=== PATIENT | female | born 1945 | race Caucasian/White ===

== ENCOUNTER 2017-03-21 10:50 | Emergency (ER) | payer MEDICARE, OTHER ==
--- NOTE | 2017-03-21 11:09 | ED Physician Documentation ---
General Adult - HISTORIAN Historian: patient - HPI Stated Complaint: skin tear Chief Complaint: General Adult Onset: days ago (1) Timing: still present Severity: moderate Further Comments: yes (Pt is a 71 yo female who fell 2 days ago and sustained skin tears to her R arm and forearm. Pt fell out of bed. Pt states that arm is a little sore, but neuromuscular is intact. Pt is on Eliquis, and sites have been oozing blood a little. Tetanus status is unknown. Pt is concerned about skin tears becoming infected.) - ROS CONST: no problems EYES/ENT: none CVS/RESP: none MS/SKIN/LYMPH: other (skin tears R arm and forearm) - PAST HX Past History: other (Afib, CHF, COPD, HTN, CABG, AAA repair, Depression) Allergies/Adverse Reactions: Allergies Allergy/AdvReac Type Severity Reaction Status Date / Time No Known Allergies Allergy Verified 03/21/17 11:11 Home Medications: Ambulatory Orders Medication Instructions Recorded Cephalexin [Keflex] 500 mg PO Q12H #10 capsule 03/21/17 - SOCIAL HX Smoking History: cigarettes - FAMILY HX Family History: No - VITAL SIGNS Vital Signs: Vital Signs Temp Pulse Resp BP Pulse Ox 131/46 02/23/14 00:30 - REVIEWED ASSESSMENTS Nursing Assessment Reviewed: Yes Vitals Reviewed: Yes Progress - Progress Progress: Tdap 0.5 ml IM Rx Keflex 500 mg. Take one every 12 hrs for 5 days. General Adult Physical Exam - PHYSICAL EXAM GENERAL APPEARANCE: no distress NECK: normal inspection, supple RESPIRATORY: no resp distress, chest non-tender, breath sounds normal CVS: reg rate & rhythm ABDOMEN: soft, no organomegaly BACK: normal inspection, no CVA tenderness SKIN: other (skin tears, R arm and forearm, partially healed) EXTREMITIES: non-tender, normal range of motion, no evidence of injury, no edema NEURO: oriented X3, motor nml, sensation nml Discharge Clincal Impression: Skin tear, fall Prescriptions: Cephalexin [Keflex] 500 mg PO Q12H #10 capsule Referrals: Pedro Torrez MD [Primary Care Provider] - Condition: Good Disposition: 01 HOME, SELF-CARE Decision to Admit: NO Decision Time: 11:36
[2017-03-21] MEDS: DIPH,PERTUSS(ACELL),TET VAC/PF 0.5 ML DISP.SYRIN IM ONE (11:20)
[2017-03-21 11:50] VITALS: BP 136/60
== END 2017-03-21 11:40 | disposition home or self-care (01) ==
LOC: ED 10:50
DX: S51.811A Laceration without foreign body of right forearm, initial encounter (principal); W19.XXXA Unspecified fall, initial encounter; Y93.9 Activity, unspecified; Y99.9 Unspecified external cause status
CPT/HCPCS: 90471; 90715; 99283; 99284

== ENCOUNTER 2017-08-25 06:34 | Emergency (ER) | payer MEDICARE, OTHER ==
--- NOTE | 2017-08-25 06:58 | ED Physician Documentation ---
General Adult - HPI Stated Complaint: fall from standing position Chief Complaint: General Adult (skin tears) Additional Information: Patient states that she slipped and fell against her cabinets and sustained injury to her right forearm area. Patient just dressed the wounds last night. Today decided to have it evaluated. Patient is on Eliquis and it has been oozing some. Onset: hours (yesterday evening) Timing: still present Severity: mild - SOCIAL HX Alcohol Use: none Drug Use: none - VITAL SIGNS Vital Signs: Vital Signs Temp Pulse Resp BP Pulse Ox 97.6 F 63 18 154/39 95 08/25/17 06:34 08/25/17 06:34 08/25/17 06:34 08/25/17 06:34 08/25/17 06:34 <Pedro Torrez - Last Filed: 08/25/17 06:57> - HPI Further Comments: yes (she states she fell against the cabinet . She denies head injury or LOC. She states she just cleaned the area and wrapped it.) Last known Well Date: 08/24/17 Last Known Well Time: 16:00 Last known Well Code/Unknown Code: Unknown - ROS CONST: no problems CVS/RESP: none GI/: none MS/SKIN/LYMPH: none NEURO/PSYCH: denies: headache, fainting - PAST HX Past History: COPD, A-Fib, hypertension Surgeries/Procedures: hysterectomy, other (appy, ) - SOCIAL HX Smoking History: cigarettes Alcohol Use: none Drug Use: none - FAMILY HX Family History: No - VITAL SIGNS Vital Signs: Vital Signs Temp Pulse Resp BP Pulse Ox 97.6 F 63 18 154/39 95 08/25/17 06:34 08/25/17 06:34 08/25/17 06:34 08/25/17 06:34 08/25/17 06:34 - REVIEWED ASSESSMENTS Nursing Assessment Reviewed: Yes Vitals Reviewed: Yes <Chel Bunch - Last Filed: 08/25/17 08:43> - PAST HX Allergies/Adverse Reactions: Allergies Allergy/AdvReac Type Severity Reaction Status Date / Time No Known Allergies Allergy Verified 08/25/17 06:52 Home Medications: Ambulatory Orders Medication Instructions Recorded Cephalexin [Keflex] 500 mg PO Q12H #10 capsule 03/21/17 Procedures Wound Location: upper extremity Wound's Depth, Shape: irregular Wound Explored: clean Betadine Prep?: No Anesthesia: 1% Lidocaine Wound Repaired With: sutures Suture Size/Type: 3:0 Number of Sutures: 14 (8 on upper lac and 14 lower ) Layer Closure?: Yes Deep Layer Suture Size/Type: 3:0 Number Deep Layer Sutures: 4 (4 lower 2 middle ) <Chel Bunch - Last Filed: 08/25/17 08:43> ED Results Lab/Radiology - Orders Orders: ED Orders Category Date Time Status Cephalexin [Keflex] Med 08/25/17 07:16 Discontinued 500 mg .ROUTE .STK-MED ONE Lidocaine 1% 5ml(IM or SUTURE) [Xylocaine] Med 08/25/17 07:02 Discontinued 100 mg .ROUTE .STK-MED ONE <Chel Bunch - Last Filed: 08/25/17 08:43> General Adult Physical Exam - PHYSICAL EXAM GENERAL APPEARANCE: no distress EENT: eye inspection normal, ENT inspection normal NECK: normal inspection RESPIRATORY: no resp distress, chest non-tender, wheezes CVS: reg rate & rhythm, heart sounds normal, equal pulses, no murmur ABDOMEN: soft, normal bowel sounds SKIN: warm/dry, other (skin tear right upper arm and laceartion on lower upper arm ) NEURO: oriented X3, CN's nml as tested, motor nml, sensation nml <Chel Bunch - Last Filed: 08/25/17 08:43> Discharge <Pedro Torrez - Last Filed: 08/25/17 06:57> Comments: 1. Keflex 500 mg BID x 10 days 2. Triple antibiotic ointment and a non stick pad with dressing 3. Watch area for infection - redness, streaking, drainage, increased pain or swelling 4. Return to Dr Torrez in 7-10 days for suture removal 5. Return to ER for any concerning symptoms Decision to Admit: NO Date of Decison to Admit: 08/25/17 Decision Time: 08:36 <Chel Bunch - Last Filed: 08/25/17 08:43> Clincal Impression: Laceration Referrals: Pedro Torrez MD [Primary Care Provider] - 2 Days Condition: Stable Disposition: 01 HOME, SELF-CARE
[2017-08-25] MEDS ORDERED: Lidocaine 1% 5ml(IM or SUTURE)(PAIN CLINIC) ONE (07:02)
[2017-08-25] MEDS ORDERED: CEPHALEXIN 250 MG CAPSULE ONE (07:16)
[2017-08-25] MEDS ORDERED: Lidocaine 1% 5ml(IM or SUTURE)(PAIN CLINIC) IJ ONE ×2 (07:54→07:58)
[2017-08-25] MEDS ORDERED: DIPH,PERTUSS(ACELL),TET VAC/PF 0.5 ML DISP.SYRIN IM ONE (07:55)
[2017-08-25] MEDS ORDERED: CEPHALEXIN 250 MG/5 ML BTL PO ONE (07:55)
[2017-08-25 09:04] VITALS: BP 148/62
== END 2017-08-25 08:50 | disposition home or self-care (01) ==
LOC: ED 06:34
DX: S41.111A Laceration without foreign body of right upper arm, initial encounter (principal); Z23 Encounter for immunization; W19.XXXA Unspecified fall, initial encounter; Y93.89 Activity, other specified; Y92.008 Other place in unspecified non-institutional (private) residence as the place of occurrence of the external cause
CPT/HCPCS: 12031; 90471; 90715; 99283

== ENCOUNTER 2018-05-28 14:54 | Inpatient (IN) | payer MEDICARE, OTHER ==
[2018-05-28 15:14] LABS: BASOPHILS % 0.6 (0.0-1.5); EOSINOPHILS % 1.7 % (0.0-6.8); MEAN CORPUSCULAR HEMOGLOBIN 29.9 pg (28.0-34.0); NEUTROPHILS # 4.5 # k/uL (1.4-7.7)
[2018-05-28] MEDS ORDERED: ALBUTEROL SULFATE 2.5 MG/3 ML AMPUL.NEB NEB ONE (15:24)
[2018-05-28] MEDS ORDERED: LACTATED RINGERS 0 ML IV ONE (15:27)
[2018-05-28 15:46] LABS: eGFR (Non-African) > 60
--- NOTE | 2018-05-28 15:54 | Diagnostic Imaging Report ---
SAM WOODARD (STILL PUMP OPERATOR) - ER [facility] [address] [facility].[address] [address] Report Submission Date: May 28, 2018 3:43:43 PM EDUCATION OFFICER Patient Study Name: JESSICA LINN Date: May 28, 2018 3:23:13 PM EDUCATION OFFICER Modality Type: DX Gender: F Description: CHEST : 49 Institution: [facility] Physician: SAM WOODARD (STILL PUMP OPERATOR) - ER Examination: Portable chest History: Evaluate lungs. SOA, congestion (Hx) Comparison exam: None provided. Findings: Single view of the chest demonstrates a normal cardiac and mediastinal silhouette. Elevated left hemidiaphragm. Sternotomy wires. Diffuse parenchymal haziness bilaterally. No blunting of the costophrenic margins. Degenerative changes. Lumbar fixation hardware. Neurostimulator. Impression: Diffuse interstitial prominence suggesting congestive edema. Electronically signed on May 28, 2018 3:43:43 PM EDUCATION OFFICER by: Darius TUCKER
[2018-05-28] MEDS ORDERED: FUROSEMIDE 40 MG/4 ML VIAL IVP ONE (16:27)
[2018-05-28 16:28] LABS: ABG BASE EXCESS 7.2 (-2 - +2); ABG PH 7.44 (7.35-7.45)
--- NOTE | 2018-05-28 16:29 | ED Physician Documentation ---
General Adult - HISTORIAN Historian: patient, other (family) - HPI Stated Complaint: SOA Chief Complaint: General Adult Onset: days ago Timing: worse Further Comments: yes (73 year old female patient presents via EMS with complaint of dyspnea, fatigue, and swelling in ankles. Patient was admitted last week at [facility] with LLL CAP. Patient was discharged on 05/18 with augmentin, doxycycline and prednisone. Patient has a history of Afib and is currently on apixaban. Patient reports poor po intake for the past few days. Patient reports PCP in [place].) - ROS CONST: recent illness ([facility] admission last week. ), weakness, chills. denies: weight loss EYES/ENT: none CVS/RESP: shortness of breath, cough. denies: chest pain GI/: none MS/SKIN/LYMPH: leg swelling (ankles) - PAST HX Past History: COPD, A-Fib, hypertension Other History: other (osteoporosis, GERD, constipation) Immunizations: influenza (UTD), pneumovax (2 years ago) Allergies/Adverse Reactions: Allergies Allergy/AdvReac Type Severity Reaction Status Date / Time adhesive tape AdvReac Itchy Skin Verified 05/28/18 15:11 Home Medications: Ambulatory Orders Medication Instructions Recorded Albuterol Sulfate [Proventil Hfa] 2.5 mg D 05/28/18 Alendronate Sodium [Fosamax] 70 mg WEEK 05/28/18 Apixaban [Eliquis] 2.5 mg D 05/28/18 Atorvastatin Calcium [Lipitor] 20 mg D 05/28/18 Budesonide/Formoterol Fumarate 1 each D 05/28/18 [Symbicort 160-4.5 Mcg Inhaler] Cholecalciferol [Vitamin D-3] 1 each D 05/28/18 Doxycycline Hyclate [Vibramycin] 100 mg BID 05/28/18 Fluticasone Propionate [Flonase] 1 each D 05/28/18 Furosemide [Lasix] 40 mg D 05/28/18 Ipratropium/Albuterol Sulfate 3 ml D 05/28/18 [Duoneb] Metoprolol Tartrate 50 mg BID 05/28/18 Omeprazole 40 mg BID 05/28/18 Potassium Chloride [Klor-Con M10] 10 meq D 05/28/18 Prednisone 40 mg D 05/28/18 Sennosides/Docusate Sodium 1 each D 05/28/18 [Docusate Sodium-Senna Tablet] - SOCIAL HX Smoking History: cigarettes (1 ppd ) - FAMILY HX Family History: No - VITAL SIGNS Vital Signs: Vital Signs Temp Pulse Resp BP Pulse Ox 99.1 F 90 20 146/69 79 L 05/28/18 14:54 05/28/18 14:54 05/28/18 14:54 05/28/18 14:54 05/28/18 14:54 - REVIEWED ASSESSMENTS Nursing Assessment Reviewed: Yes Vitals Reviewed: Yes Progress - Progress Progress: lab reviewed - will progress with ABG, CT abd/pelvis. Lasix 40mg IV given. Discussed plan of care with patient and family. Offered admission for CHF exacerbation with evaluation by PT/OT. Patient will likely need swing bed for strengthening. Assisted up to BSC - patient unable to get up off of stretcher on her own; assist x 2 to bathroom. Fall risk. 1715 CT results reviewed. Patient reports no vomiting; last BM____; patient denies any abdominal pain. Adorno's negative. No palpable mass in left abdominal wall. No clinical symptoms of obstruction. Will monitor closely. Denise Monk FIELD MARKETER made aware. Ultrasound is not available at this time. No previous ECHO report available. - EKG/XRAY/CT EKG: rhythm (Afib) ED Results Lab/Radiology - Lab Results Lab Results: Lab Results 05/28/18 05/28/18 05/28/18 Unknown Unknown Unknown WBC 5.80 K/ul K/ul (4.00-12.00) RBC 3.56 M/ul L M/ul (3.90-5.20) Hgb 10.6 g/dL L g/dL (12.0-16.0) Hct 32.3 % L % (34.5-46.5) MCV 91.0 fl fl (80.0-100.0) MCH 29.9 pg pg (28.0-34.0) MCHC 33.0 g/dL g/dL (30.0-36.0) RDW 14.0 % % (11.3-14.3) Plt Count 121 K/mm3 L K/mm3 (130-400) Neut % (Auto) 77.5 % % (39.0-79.0) Lymph % (Auto) 14.2 % L % (16.0-50.0) [place] % (Auto) 6.0 % % (0.0-11.0) Eos % (Auto) 1.7 % % (0.0-6.8) Baso % (Auto) 0.6 (0.0-1.5) Neut # (Auto) 4.5 # k/uL # k/uL (1.4-7.7) Lymph # (Auto) 0.8 # k/uL # k/uL (0.6-4.0) [place] # (Auto) 0.4 # k/uL # k/uL (0.0-0.9) Eos # (Auto) 0.1 # k/uL # k/uL (0.0-0.6) Baso # (Auto) 0.0 # k/uL # k/uL (0.0-0.5) Sodium 130 mmol/L L mmol/L (136-145) Potassium 4.3 mmol/L mmol/L (3.5-5.1) Chloride 95 mmol/L L mmol/L (98-107) Carbon Dioxide 32 mmol/L H mmol/L (22-30) BUN 23 mg/dL H mg/dL (7-17) Creatinine 1.10 mg/dL H mg/dL (0.52-1.04) Estimated Creat Clear 50 Est GFR ( Amer) > 60 (60 - ) Est GFR (Non-Af Amer) > 60 (60 - ) Glucose 110 mg/dL H mg/dL (74-106) Lactate Calcium 7.8 mg/dL L mg/dL (8.4-10.2) Total Bilirubin 0.8 mg/dL mg/dL (0.2-1.3) AST 88 U/L H U/L (15-46) ALT 86 U/L H U/L (13-69) Alkaline Phosphatase 127 U/L H U/L (38-126) Troponin I < 0.03 ng/mL L ng/mL (0.03-0.06) NT-Pro-B Natriuret Pep 4591.3 pg/mL H pg/mL (15.0-125.0) Total Protein 6.2 g/dL L g/dL (6.3-8.2) Albumin 3.2 g/dL L g/dL (3.5-5.0) 05/28/18 15:24 WBC RBC Hgb Hct MCV MCH MCHC RDW Plt Count Neut % (Auto) Lymph % (Auto) [place] % (Auto) Eos % (Auto) Baso % (Auto) Neut # (Auto) Lymph # (Auto) [place] # (Auto) Eos # (Auto) Baso # (Auto) Sodium Potassium Chloride Carbon Dioxide BUN Creatinine Estimated Creat Clear Est GFR ( Amer) Est GFR (Non-Af Amer) Glucose Lactate 0.8 U/L U/L (0.7-2.1) Calcium Total Bilirubin AST ALT Alkaline Phosphatase Troponin I NT-Pro-B Natriuret Pep Total Protein Albumin - Radiology Radiology Impressions: Examination: Portable chest History: Evaluate lungs. SOA, congestion (Hx) Comparison exam: None provided. Findings: Single view of the chest demonstrates a normal cardiac and mediastinal silhouette. Elevated left hemidiaphragm. Sternotomy wires. Diffuse parenchymal haziness bilaterally. No blunting of the costophrenic margins. Degenerative changes. Lumbar fixation hardware. Neurostimulator. Impression: Diffuse interstitial prominence suggesting congestive edema. Electronically signed on May 28, 2018 3:43:43 PM DIRECT SUPPORT PROFESSIONAL CAREGIVER by: Darius Stearns CT Abdomen/pelvis with contrast History: NAUSEA AND VOMITING. HX OF NHL. PREVIOUS BACK SX, AORTA REPAIR X2, AND APPENDECTOMY. 80 ML OMNI 350 IV CONTRAST. (Hx) / ITS.REASON N/V; elevated LFT (DICOM Hx) / ITS.REASON cough,hypoxia No comparison studies Left pleural effusion with underlying consolidation. Right lower lobe atelectasis and patchy infiltrates No free intraperitoneal air. T12-L5 thoracolumbar fusion hardware causes artifact, limits evaluation. The liver, partially visualized spleen, adrenal glands are within normal limits. Gallstones are present. Gallbladder sludge Left kidney is atrophic. No obvious hydronephrosis. Largely distended urinary bladder There is a left posterior abdominal wall hernia through which protrudes loop of bowel and fat. Minimal fecal stasis in terminal ileum. Appendix is not identified. Battery pack is noted in the right gluteal region with lead wire extending to the spine. Extensive atherosclerotic aortic calcification Impression 1. Gallstone and gallbladder sludge. Please correlate with site of pain. Gallbladder ultrasound suggested if concern for acute cholecystitis. Common bile duct measures 1.1 cm, slightly dilated 2. Left posterior abdominal wall hernia contains fat and a loop of bowel, please correlate with clinical examination to evaluate for obstruction/ irreducibility of hernia. 3. Thoracolumbar fusion hardware causes significant artifact. Grade I anterolisthesis of L5 on S1. 4. Small left pleural effusion. Bibasilar atelectasis/patchy infiltrates. Electronically signed on May 28, 2018 5:13:07 PM DIRECT SUPPORT PROFESSIONAL CAREGIVER by: Yancy Dimas - Orders Orders: ED Orders Category Date Time Status Arterial Blood Gas 1T Care 05/28/18 16:03 Active Intake and Output Q1H Care 05/28/18 16:[address] IV Lock 1T Care 05/28/18 15:00 Active CHEST 1VIEW [RAD] Stat Exams 05/28/18 15:[address] ABD & PELVIS W/ CON Stat Exams 05/28/18 Ordered ARTERIAL BLOOD GAS Routine Lab 05/28/18 15:55 Received BNP [NT-proBNP] Stat Lab 05/28/18 Completed CBC/PLATELET/DIFF Stat Lab 05/28/18 Completed CMP Stat Lab 05/28/18 Completed LACTATE Stat Lab 05/28/18 15:24 Completed TROPONIN I (cTnI) Stat Lab 05/28/18 Completed UA W/MICRO IF INDICATED Stat Lab 05/28/18 15:00 Ordered Albuterol Sulfate [Ventolin] Med 05/28/18 15:24 Discontinued 2.5 mg NEB NOW ONE Furosemide [Lasix] Med 05/28/18 16:27 Once 40 mg IVP NOW ONE Lactated Ringers [Ringers, Lactated] 1,000 ml Med 05/28/18 15:27 Discontinued IV .STK-MED Oxygen Daily Oxygen 05/28/18 15:00 Ordered General Adult Physical Exam - PHYSICAL EXAM GENERAL APPEARANCE: moderate distress EENT: eye inspection normal, ENT inspection normal, pharynx normal, MARY, no nystagmus, TM's nml, dry mucous membranes RESPIRATORY: no resp distress, chest non-tender, other (course bilaterally with rales; expiratory wheezing) CVS: heart sounds normal, equal pulses, no murmur, no gallop, PMI nml, no JVD, no friction rub, irregularly irregular rhy ABDOMEN: soft, no organomegaly, no abdominal bruit, no distension, decreased BS BACK: normal inspection, no CVA tenderness SKIN: warm/dry, pallor EXTREMITIES: no evidence of injury, edema (2+ in ankles), other (generalized weakness and deconditioning) NEURO: oriented X3, CN's nml as tested, motor nml, sensation nml, mood/affect nml Discharge Clincal Impression: Physical deconditioning, Elevated LFTs CHF (congestive heart failure) Qualifiers: Heart failure type: unspecified Heart failure chronicity: acute Qualified Code(s): I50.9 - Heart failure, unspecified COPD (chronic obstructive pulmonary disease) Qualifiers: COPD type: COPD with acute exacerbation Qualified Code(s): J44.1 - Chronic obstructive pulmonary disease with (acute) exacerbation Cholelithiases Qualifiers: Cholelithiasis location: gallbladder Cholecystitis presence: without cholecystitis Biliary obstruction: without biliary obstruction Qualified Code(s): K80.20 - Calculus of gallbladder without cholecystitis without obstruction Condition: Stable Disposition: 09 ADMITTED INPATIENT Decision to Admit: [id number] Decision Time: 16:59
--- NOTE | 2018-05-28 17:54 | Diagnostic Imaging Report ---
SAM WOODARD (ANTHROPOLOGY LECTURER) - ER [facility] [address] [facility] [address] [place], [place]. [address] Report Submission Date: May 28, 2018 5:13:07 PM FISH MACHINE FEEDER Patient Study Name: JESSICA LINN Date: May 28, 2018 4:23:56 PM FISH MACHINE FEEDER Modality Type: CT Gender: F Description: CT ABD PELVIS W/ CON : 49 Institution: [facility] Physician: SAM WOODARD (ANTHROPOLOGY LECTURER) - ER CT Abdomen/pelvis with contrast History: NAUSEA AND VOMITING. HX OF NHL. PREVIOUS BACK SX, AORTA REPAIR X2, AND APPENDECTOMY. 80 ML OMNI 350 IV CONTRAST. (Hx) / ITS.REASON N/V; elevated LFT (DICOM Hx) / ITS.REASON cough,hypoxia No comparison studies Left pleural effusion with underlying consolidation. Right lower lobe atelectasis and patchy infiltrates No free intraperitoneal air. T12-L5 thoracolumbar fusion hardware causes artifact, limits evaluation. The liver, partially visualized spleen, adrenal glands are within normal limits. Gallstones are present. Gallbladder sludge Left kidney is atrophic. No obvious hydronephrosis. Largely distended urinary bladder There is a left posterior abdominal wall hernia through which protrudes loop of bowel and fat. Minimal fecal stasis in terminal ileum. Appendix is not identified. Battery pack is noted in the right gluteal region with lead wire extending to the spine. Extensive atherosclerotic aortic calcification Impression 1. Gallstone and gallbladder sludge. Please correlate with site of pain. Gallbladder ultrasound suggested if concern for acute cholecystitis. Common bile duct measures 1.1 cm, slightly dilated 2. Left posterior abdominal wall hernia contains fat and a loop of bowel, please correlate with clinical examination to evaluate for obstruction/ irreducibility of hernia. 3. Thoracolumbar fusion hardware causes significant artifact. Grade I anterolisthesis of L5 on S1. 4. Small left pleural effusion. Bibasilar atelectasis/patchy infiltrates. Electronically signed on May 28, 2018 5:13:07 PM FISH MACHINE FEEDER by: Yancy TUCKER
[2018-05-28 18:22] LABS: APPEARANCE,URINE CLEAR (CLEAR); COLOR,URINE YELLOW (YELLOW); OCCULT BLOOD,URINE NEGATIVE (NEGATIVE); PH URINE 7.5 (5.0 - 8.0); UROBILINOGEN URINE 0.2 Eu (0.2-1.0)
[2018-05-28] MEDS ORDERED: OMEPRAZOLE 20 MG ONE (19:39)
[2018-05-28] MEDS: IPRATROPIUM/ALBUTEROL SULFATE 3 ML AMPUL.NEB NEB SCH (19:48)
[2018-05-28] MEDS ORDERED: ALBUTEROL SULFATE 2.5 MG/3 ML AMPUL.NEB NEB PRN (20:00)
[2018-05-28] MEDS: METOPROLOL TARTRATE 50 MG TABLET PO SCH (20:25)
[2018-05-28] MEDS: OMEPRAZOLE 40 MG PO SCH (20:25)
[2018-05-29] MEDS: IPRATROPIUM/ALBUTEROL SULFATE 3 ML AMPUL.NEB NEB SCH ×5 (00:13→23:43)
[2018-05-29] MEDS: METOPROLOL TARTRATE 50 MG TABLET PO SCH ×2 (00:35→20:17)
--- NOTE | 2018-05-29 06:46 | History and Physical Report ---
History of Present Illnes - History of Present Illness Reason for Visit: Shortness of Breath History of Present Illness: Patient is a 73-year-old white female that was admitted through the ER. Patient was transported to the ER via EMS. Patient was recently discharged on 05/18/18 from the [facility] for LLL pneumonia- pt states that she finished her antibiotics (Augmentin & Doxycycline). She has not had much energy since she has been home and has continued to decline- she admits that she is still smoking 1 PPD and refuses to try to quit- discussed that her condition will continue to worsen and patient states "I am not quitting". She states that she has been laying around at home and has become increasingly short of breath and very weak. She currently lives with her son. She is requiring max assist with ADLs and has not had much of an appetite over the last few days. - Past Medical History Cardiac: AFIB, CHF, HTN Pulmonary: COPD, Pneumonia Gastrointestinal: GERD Hepatobiliary: Cholelithiasis Musculoskeletal: Osteoarthritis Rheumatologic: Rheumatoid arthritis ENT: Sinusitis Renal/: UTI Endocrine: Osteoporosis - Past Surgical History Past Surgical History: Appendectomy, Hysterectomy, Other (Thoracic aneurysm repair x 2), Other (ankle fusion, joint replacement in hands, lumbar fusion) - Past Family History Mother Family History: Cancer (uterine cancer), Father Family History: DM, - Past Social History Smoke: 1 pack per day Alcohol: None Drugs: None Lives: With Family Domestic Violence: Negative - Health Maintenance Health Maintenance: Influenza Vaccine, Pneumococcal Vaccine Influenza Vaccine: Current for this Influenza Season Pneumonia Vaccine: Yes Resuscitation Status: Resusciation Status Resuscitation Status Full Code - Unable to Obtain History Unable to Obtain: No Review of Systems - Review of Systems Constitutional: Chills, Weakness Eyes: negative: pain, vision change ENT: Nose Congestion. negative: Ear Pain, Nose Pain Respiratory: Cough, Shortness of Breath, SOB with Excertion, Wheezing Cardiovascular: Edema (ankles). negative: Chest Pain Gastrointestinal: negative: Nausea, Vomiting, Abdominal Pain Genitourinary: negative: Dysuria Musculoskeletal: negative: Back Pain Skin: negative: Rash Neurological: Weakness - Medications/Allergies Allergies/Adverse Reactions: Allergies Allergy/AdvReac Type Severity Reaction Status Date / Time adhesive tape AdvReac Itchy Skin Verified 05/28/18 15:11 Home Medications: Home Medications Albuterol Sulfate [Proventil Hfa] 2.5 mg D 05/28/18 Alendronate Sodium [Fosamax] 70 mg WEEK 05/28/18 Apixaban [Eliquis] 2.5 mg D 05/28/18 Atorvastatin Calcium [Lipitor] 20 mg D 05/28/18 Budesonide/Formoterol Fumarate [Symbicort 160-4.5 Mcg Inhaler] 1 each D 05/28/18 Cholecalciferol [Vitamin D-3] 1 each D 05/28/18 Doxycycline Hyclate [Vibramycin] 100 mg BID 05/28/18 Fluticasone Propionate [Flonase] 1 each D 05/28/18 Furosemide [Lasix] 40 mg D 05/28/18 Ipratropium/Albuterol Sulfate [Duoneb] 3 ml D 05/28/18 Metoprolol Tartrate 50 mg BID 05/28/18 Omeprazole 40 mg BID 05/28/18 Potassium Chloride [Klor-Con M10] 10 meq D 05/28/18 Prednisone 40 mg D 05/28/18 Sennosides/Docusate Sodium [Docusate Sodium-Senna Tablet] 1 each D 05/28/18 Current Inpatient Medications: Current Inpatient Medications Albuterol Sulfate (Ventolin) 2.5 mg NEB Q4 PRN PRN Reason: Wheezing Stop: 05/29/18 05:01 Albuterol/Ipratropium (Duoneb) 3 ml NEB Q6 COUNTS INCLUDE 234 BEDS AT THE [facility] Last Admin: 05/29/18 05:56 Dose: 3 ml Alendronate Sodium (Fosamax) 70 mg PO WEEK COUNTS INCLUDE 234 BEDS AT THE [facility] Atorvastatin Calcium (Lipitor) 20 mg PO HS COUNTS INCLUDE 234 BEDS AT THE [facility] Cholecalciferol (Vitamin D-3) unit PO DAILY COUNTS INCLUDE 234 BEDS AT THE [facility] Diltiazem HCl (Cardizem Cd) 240 mg PO DAILY COUNTS INCLUDE 234 BEDS AT THE [facility] Fluticasone Propionate (Flonase Nasal [place]) 1 spray NS DAILY COUNTS INCLUDE 234 BEDS AT THE [facility] Furosemide (Lasix) 40 mg IVP NOW ONE Stop: 05/29/18 08:01 Metoprolol Tartrate (Lopressor) 50 mg PO BID COUNTS INCLUDE 234 BEDS AT THE [facility] Last Admin: 05/29/18 00:35 Dose: Not Given Miscellaneous (Omeprazole) 40 mg PO BID COUNTS INCLUDE 234 BEDS AT THE [facility] Last Admin: 05/28/18 20:25 Dose: 40 mg Potassium Chloride (Klor-Con 10) 10 meq PO DAILY COUNTS INCLUDE 234 BEDS AT THE [facility] Exam - Exam Vital Signs: Vital Signs (72 hours) 05/28/18 05/28/18 05/28/18 14:54 17:06 17:20 Temperature 99.1 F 97.5 F L Pulse Rate Pulse Rate [ Apical] Pulse Rate [ 90 81 77 Left Pulse ox] Respiratory 20 22 20 Rate Blood Pressure 146/69 132/54 113/71 [Left Arm] O2 Sat by Pulse 79 L 99 77 L Oximetry 05/28/18 05/28/18 05/28/18 17:27 17:43 17:49 Temperature 97.5 F L 97.5 F L Pulse Rate Pulse Rate [ Apical] Pulse Rate [ 81 81 Left Pulse ox] Respiratory 22 22 Rate Blood Pressure 132/54 132/54 [Left Arm] O2 Sat by Pulse 99 99 99 Oximetry 05/28/18 05/28/18 05/28/18 18:00 21:06 21:42 Temperature 97.5 F L Pulse Rate Pulse Rate [ 94 H Apical] Pulse Rate [ 81 Left Pulse ox] Respiratory 22 20 Rate Blood Pressure 132/54 [Left Arm] O2 Sat by Pulse 99 98 Oximetry 05/28/18 05/29/18 05/29/18 22:00 00:23 01:00 Temperature 97.6 F 97.0 F L Pulse Rate 98 H Pulse Rate [ 88 Apical] Pulse Rate [ 56 L 51 L Left Pulse ox] Respiratory 20 22 22 Rate Blood Pressure 131/56 112/43 [Left Arm] O2 Sat by Pulse 98 99 Oximetry 05/29/18 05/29/18 05/29/18 02:00 05:00 06:00 Temperature 97.0 F L 97.5 F L Pulse Rate 51 L 82 Pulse Rate [ Apical] Pulse Rate [ 67 70 74 Left Pulse ox] Respiratory 20 26 H 24 Rate Blood Pressure 117/44 140/51 [Left Arm] O2 Sat by Pulse 100 98 98 Oximetry General: Alert, Oriented to Person, Oriented to Place, Oriented to Time, Cooperative, Mild distress (Eating dinner) HEENT: Atraumatic, PERRLA, Mouth Mucous membr. moist/[place] Neck: Normal Range of Motion Lungs: Speaks full Sentences, Wheezes, Rhonchi Cardiovascular: Regular rate, Normal S1, Normal S2 Abdomen: Normal bowel sounds, Soft, No tenderness Integumentary: Warm, Dry, Pale Extremities: Normal pulses, Other (2+ edema to ankles) Neurological: Normal speech, Generalized Weakness Psych/Mental Status: Mental status NL, Appropriate Affect - Laboratory Results Laboratory Results: Laboratory Results 05/28/18 05/28/18 05/28/18 15:24 15:55 17:03 WBC RBC Hgb Hct MCV MCH MCHC RDW Plt Count Neut % (Auto) Lymph % (Auto) [place] % (Auto) Eos % (Auto) Baso % (Auto) Neut # (Auto) Lymph # (Auto) [place] # (Auto) Eos # (Auto) Baso # (Auto) pH 7.44 pCO2 48 pO2 70 L HCO3 30.5 H ABG O2 Sat Calc/[place]ayle 97 ABG Base Excess 7.2 H Sodium Potassium Chloride Carbon Dioxide BUN Creatinine Estimated Creat Clear Est GFR ( Amer) Est GFR (Non-Af Amer) Glucose Lactate 0.8 Calcium Total Bilirubin AST ALT Alkaline Phosphatase Troponin I NT-Pro-B Natriuret Pep Total Protein Albumin Urine Color Yellow Urine Appearance Clear Urine pH 7.5 Ur Specific [place] 1.015 Urine Protein Negative Urine Ketones Negative Urine Occult Blood Negative Urine Nitrite Negative Urine Bilirubin Negative Urine Urobilinogen 0.2 Ur Leukocyte Esterase 1+ H Urine Glucose Negative 05/28/18 05/28/18 05/28/18 Unknown Unknown Unknown WBC 5.80 RBC 3.56 L Hgb 10.6 L Hct 32.3 L MCV 91.0 MCH 29.9 MCHC 33.0 RDW 14.0 Plt Count 121 L Neut % (Auto) 77.5 Lymph % (Auto) 14.2 L [place] % (Auto) 6.0 Eos % (Auto) 1.7 Baso % (Auto) 0.6 Neut # (Auto) 4.5 Lymph # (Auto) 0.8 [place] # (Auto) 0.4 Eos # (Auto) 0.1 Baso # (Auto) 0.0 pH pCO2 pO2 HCO3 ABG O2 Sat Calc/[place]ayle ABG Base Excess Sodium 130 L Potassium 4.3 Chloride 95 L Carbon Dioxide 32 H BUN 23 H Creatinine 1.10 H Estimated Creat Clear 50 Est GFR ( Amer) > 60 Est GFR (Non-Af Amer) > 60 Glucose 110 H Lactate Calcium 7.8 L Total Bilirubin 0.8 AST 88 H ALT 86 H Alkaline Phosphatase 127 H Troponin I < 0.03 L NT-Pro-B Natriuret Pep 4591.3 H Total Protein 6.2 L Albumin 3.2 L Urine Color Urine Appearance Urine pH Ur Specific [place] Urine Protein Urine Ketones Urine Occult Blood Urine Nitrite Urine Bilirubin Urine Urobilinogen Ur Leukocyte Esterase Urine Glucose Assessment/Plan - Assessment/Plan (1) CHF (congestive heart failure) Status: Acute Current Visit: Yes Qualifiers: Heart failure type: unspecified Heart failure chronicity: acute Qualified Code(s): I50.9 - Heart failure, unspecified Assessment: Patient has 2+ edema to bilateral ankles, Lungs- crackles in the bases with wheezing Plan: will give Lasix 40 mg daily IV, Monitor I & O strictly, will monitor kidney function, supplemental O2 and HFN txs (2) COPD (chronic obstructive pulmonary disease) Status: Acute Current Visit: Yes Qualifiers: COPD type: COPD with acute exacerbation Qualified Code(s): J44.1 - Chronic obstructive pulmonary disease with (acute) exacerbation Assessment: Wheezing heard throughout, patient smokes 1 PPD- no intentions to quit- SOA with any excertion Plan: Will give scheduled HFN txs and will start Solu-Medrol, supplemental oxygen and HFN txs, pt is to try and use incentive spirometer (3) Cholelithiases Status: Acute Current Visit: Yes Qualifiers: Cholelithiasis location: gallbladder Cholecystitis presence: without cho lecystitis Biliary obstruction: without biliary obstruction Qualified Code(s): K80.20 - Calculus of gallbladder without cholecystitis without obst ruction Assessment: + bowel sounds, no tenderness on palpation Plan: will monitor- will get ultrasound (4) Physical deconditioning Status: Acute Current Visit: Yes Assessment: Patient is very weak s/p recent hospitalization Plan: Will get PT/OT eval VTE Assessment - RISK FACTOR SCORE VTE RISK FACTOR SCORES: AGE OVER 60 YEARS, SMOKER (pt is on eliquis)
[2018-05-29] MEDS ORDERED: methylPREDNISolone SOD SUCC 125 MG/2 ML VIAL IVP ONE (06:52)
[2018-05-29 07:03] LABS: eGFR (Non-African) > 60
[2018-05-29 07:04] LABS: BASOPHILS % 0.5 (0.0-1.5); EOSINOPHILS % 1.5 % (0.0-6.8); MONOCYTES % 5.5 % (0.0-11.0); NEUTROPHILS # 2.9 # k/uL (1.4-7.7)
--- NOTE | 2018-05-29 07:06 | Inpatient Progress Note ---
Subjective - Required Recertification Statement I anticipate X number of days because-include discharge plan: 1-2 - Review of Systems Events since last encounter: Patient continues to become increasingly short of breath with any exertion- she is max assist with getting to bedside commode- patient was bradycardic last night in the 30s (asymptomatic) but quickly recovered in the 50-60s- she still has a lot of congestion in her lungs- tachypnea- requiring supplemental oxygen, and continuing with scheduled breathing tx's. Will add Solu-Medrol for her worsening COPD General: Fatigue HEENT: Denies: Eye Pain, Ear Pain Pulmonary: Dyspnea, Cough Cardiovascular: Edema. Denies: Chest Pain Gastrointestinal: Denies: Nausea, Vomiting Genitourinary: Denies: Dysuria Musculoskeletal: Denies: Back Pain Neurological: Weakness Objective - Exam Vitals and I&O: Vital Signs Temp 97.5 F L 05/29/18 06:00 Pulse 74 05/29/18 06:00 Resp 24 05/29/18 06:00 BP 140/51 05/29/18 06:00 Pulse Ox 98 05/29/18 06:00 Intake & Output 05/28/18 05/28/18 05/29/18 11:59 23:59 11:59 Intake Total 120 10 Output Total 2100 800 Balance -1979 Weight 58.06 kg 56.245 kg Intake: IV 0 Left Antecubital 0 Oral 120 10 Output: Urine 2100 800 Other: Voiding Method Bedside Commode Bedside Commode # Voids 0 1 General: Alert, Oriented to Person, Oriented to Place, Cooperative, Mild distress HEENT: Atraumatic, PERRLA, Mouth Mucous membr. moist/[place] Neck: No JVD, +2 carotid pulse wo bruit Lungs: Normal air movement, Wheezes, Rhonchi Cardiovascular: Normal S1, Normal S2, Bradycardia Abdomen: Normal bowel sounds, Soft, No tenderness Extremities: No cyanosis, Normal pulses Skin: Warm, Dry, Pale Neurological: Normal speech, Sensation intact, Generalized Weakness Psych/Mental Status: Mental status NL, Mood NL - Results Results: Laboratory Results WBC 3.80 K/ul (4.00-12.00) L 05/29/18 06:24 RBC 3.26 M/ul (3.90-5.20) L 05/29/18 06:24 Hgb 9.8 g/dL (12.0-16.0) L 05/29/18 06:24 Hct 29.4 % (34.5-46.5) L 05/29/18 06:24 MCV 90.0 fl (80.0-100.0) 05/29/18 06:24 MCH 30.0 pg (28.0-34.0) 05/29/18 06:24 MCHC 33.2 g/dL (30.0-36.0) 05/29/18 06:24 RDW 14.6 % (11.3-14.3) H 05/29/18 06:24 Plt Count 112 K/mm3 (130-400) L 05/29/18 06:24 Neut % (Auto) 76.7 % (39.0-79.0) 05/29/18 06:24 Lymph % (Auto) 15.8 % (16.0-50.0) L 05/29/18 06:24 [place] % (Auto) 5.5 % (0.0-11.0) 05/29/18 06:24 Eos % (Auto) 1.5 % (0.0-6.8) 05/29/18 06:24 Baso % (Auto) 0.5 (0.0-1.5) 05/29/18 06:24 Neut # (Auto) 2.9 # k/uL (1.4-7.7) 05/29/18 06:24 Lymph # (Auto) 0.6 # k/uL (0.6-4.0) 05/29/18 06:24 [place] # (Auto) 0.2 # k/uL (0.0-0.9) 05/29/18 06:24 Eos # (Auto) 0.1 # k/uL (0.0-0.6) 05/29/18 06:24 Baso # (Auto) 0.0 # k/uL (0.0-0.5) 05/29/18 06:24 pH 7.44 (7.35-7.45) 05/28/18 15:55 pCO2 48 mmhg (35-48) 05/28/18 15:55 pO2 70 mmhg (83-108) L 05/28/18 15:55 HCO3 30.5 Meq/L (21-28) H 05/28/18 15:55 ABG O2 Sat Calc/Gayle 97 % (93-100) 05/28/18 15:55 ABG Base Excess 7.2 (-2 - +2) H 05/28/18 15:55 Sodium 131 mmol/L (136-145) L 05/29/18 06:24 Potassium 4.2 mmol/L (3.5-5.1) 05/29/18 06:24 Chloride 95 mmol/L (98-107) L 05/29/18 06:24 Carbon Dioxide 34 mmol/L (22-30) H 05/29/18 06:24 BUN 22 mg/dL (7-17) H 05/29/18 06:24 Creatinine 1.10 mg/dL (0.52-1.04) H 05/29/18 06:24 Estimated Creat Clear 49 05/29/18 06:24 Est GFR ( Amer) > 60 (60-) 05/29/18 06:24 Est GFR (Non-Af Amer) > 60 (60-) 05/29/18 06:24 Glucose 107 mg/dL (74-106) H 05/29/18 06:24 Lactate 0.8 U/L (0.7-2.1) 05/28/18 15:24 Calcium 7.9 mg/dL (8.4-10.2) L 05/29/18 06:24 Total Bilirubin 0.6 mg/dL (0.2-1.3) 05/29/18 06:24 AST 67 U/L (15-46) H 05/29/18 06:24 ALT 79 U/L (13-69) H 05/29/18 06:24 Alkaline Phosphatase 108 U/L (38-126) 05/29/18 06:24 Troponin I < 0.03 ng/mL (0.03-0.06) L 05/28/18 Unknown NT-Pro-B Natriuret Pep 4591.3 pg/mL (15.0-125.0) H 05/28/18 Unknown Total Protein 5.8 g/dL (6.3-8.2) L 05/29/18 06:24 Albumin 2.8 g/dL (3.5-5.0) L 05/29/18 06:24 Urine Color Yellow (YELLOW) 05/28/18 17:03 Urine Appearance Clear (CLEAR) 05/28/18 17:03 Urine pH 7.5 (5.0 - 8.0) 05/28/18 17:03 Ur Specific [place] 1.015 (1.010-1.030) 05/28/18 17:03 Urine Protein Negative mg/dL (NEGATIVE) 05/28/18 17:03 Urine Ketones Negative mg/dL (NEGATIVE) 05/28/18 17:03 Urine Occult Blood Negative (NEGATIVE) 05/28/18 17:03 Urine Nitrite Negative (NEGATIVE) 05/28/18 17:03 Urine Bilirubin Negative (NEGATIVE) 05/28/18 17:03 Urine Urobilinogen 0.2 Eu (0.2-1.0) 05/28/18 17:03 Ur Leukocyte Esterase 1+ (NEGATIVE) H 05/28/18 17:03 Urine Glucose Negative mg/dL (NEGATIVE) 05/28/18 17:03 Assessment/Plan - Assessment/Plan (1) CHF (congestive heart failure) Status: Acute Current Visit: Yes Qualifiers: Heart failure type: unspecified Heart failure chronicity: acute Qualified Code(s): I50.9 - Heart failure, unspecified Assessment: Edema to lower extremities, rhonchi heard throughout lung [place], increasing shortness of breath with mild exertion Plan: Will continue give IV lasix, HFNs, and monitor lab work (2) COPD (chronic obstructive pulmonary disease) Status: Acute Current Visit: Yes Qualifiers: COPD type: COPD with acute exacerbation Qualified Code(s): J44.1 - Chronic obstructive pulmonary disease with (acute) exacerbation Assessment: Edema to lower extremities, rhonchi heard throughout lung [place], increasing shortness of breath with mild exertion Plan: Will add solu-medrol IV to her medications today, continue HFN txs and supplemental Oxygen (3) Cholelithiases Status: Acute Current Visit: Yes Qualifiers: Cholelithiasis location: gallbladder Cholecystitis presence: without cholecystitis Biliary obstruction: without biliary obstruction Qualified Code(s): K80.20 - Calculus of gallbladder without cholecystitis without obstruction Assessment: No abdominal discomfort Plan: Will continue to monitor diet, input & output, and any abdominal discomfort (4) Physical deconditioning Status: Acute Current Visit: Yes Assessment: Patient is very weak and gets extremely short of breath with exertion Plan: PT/OT will eval today- The plan is to SNF patient on 05/30/18 for strengthning
[2018-05-29] MEDS ORDERED: OMEPRAZOLE 20 MG ONE (07:43)
[2018-05-29] MEDS ORDERED: FUROSEMIDE 40 MG/4 ML VIAL IVP ONE (08:00)
[2018-05-29] MEDS: DILTIAZEM HCL 120 MG CAP.ER.24H PO SCH (09:00)
[2018-05-29] MEDS: APIXABAN 2.5 MG TABLET PO SCH (09:00)
[2018-05-29] MEDS: FLUTICASONE PROPIONATE 120 SPRAY/16 GR BOTTLE NS SCH (09:00)
[2018-05-29] MEDS: NICOTINE 14mg PATCH.TD24 TD SCH (09:01)
[2018-05-29] MEDS: POTASSIUM CHLORIDE 10 MEQ TABLET.ER PO SCH (09:01)
[2018-05-29] MEDS: OMEPRAZOLE 40 MG PO SCH (09:02)
[2018-05-29] MEDS: CHOLECALCIFEROL (VIT D3) 1,000 UNIT TABLET PO SCH (09:03)
[2018-05-29] MEDS ORDERED: ACETAMINOPHEN 325 MG TABLET ONE (17:32)
[2018-05-29] MEDS: methylPREDNISolone SOD SUCC 40 MG/ML VIAL IVP SCH (20:31)
[2018-05-29] MEDS ORDERED: ATORVASTATIN CALCIUM 20 MG TABLET PO SCH (21:00)
[2018-05-29] MEDS: OMEPRAZOLE 20 MG PO SCH (21:56)
[2018-05-29] MEDS ORDERED: ACETAMINOPHEN 325 MG TABLET PO PRN (23:30)
[2018-05-30] MEDS: IPRATROPIUM/ALBUTEROL SULFATE 3 ML AMPUL.NEB NEB SCH (05:51)
[2018-05-30] MEDS: OMEPRAZOLE 20 MG PO SCH (05:54)
[2018-05-30 08:13] LABS: eGFR (Non-African) > 60
[2018-05-30] MEDS: CHOLECALCIFEROL (VIT D3) 1,000 UNIT TABLET PO SCH (08:35)
[2018-05-30] MEDS: APIXABAN 2.5 MG TABLET PO SCH (08:35)
[2018-05-30] MEDS: DILTIAZEM HCL 120 MG CAP.ER.24H PO SCH (08:35)
[2018-05-30] MEDS: POTASSIUM CHLORIDE 10 MEQ TABLET.ER PO SCH (08:35)
[2018-05-30] MEDS: FLUTICASONE PROPIONATE 120 SPRAY/16 GR BOTTLE NS SCH (08:35)
[2018-05-30] MEDS: METOPROLOL TARTRATE 50 MG TABLET PO SCH (08:37)
--- NOTE | 2018-05-30 08:53 | Discharge Summary ---
Discharge Summary - Discharge [facility] Home Medications: Ambulatory Orders Medication Instructions Recorded Albuterol Sulfate [Proventil Hfa] 2.5 mg D 05/28/18 Alendronate Sodium [Fosamax] 70 mg WEEK 05/28/18 Apixaban [Eliquis] 2.5 mg D 05/28/18 Atorvastatin Calcium [Lipitor] 20 mg D 05/28/18 Budesonide/Formoterol Fumarate 1 each D 05/28/18 [Symbicort 160-4.5 Mcg Inhaler] Cholecalciferol [Vitamin D-3] 1 each D 05/28/18 Doxycycline Hyclate [Vibramycin] 100 mg BID 05/28/18 Fluticasone Propionate [Flonase] 1 each D 05/28/18 Furosemide [Lasix] 40 mg D 05/28/18 Ipratropium/Albuterol Sulfate 3 ml D 05/28/18 [Duoneb] Metoprolol Tartrate 50 mg BID 05/28/18 Omeprazole 40 mg BID 05/28/18 Potassium Chloride [Klor-Con M10] 10 meq D 05/28/18 Prednisone 40 mg D 05/28/18 Sennosides/Docusate Sodium 1 each D 05/28/18 [Docusate Sodium-Senna Tablet] Allergies/Adverse Reactions: Allergies Allergy/AdvReac Type Severity Reaction Status Date / Time adhesive tape AdvReac Mild Itchy Skin Verified 05/29/18 08:25 Patient Problems: Current Active Problems Problem Status Onset CHF (congestive heart failure) Acute COPD (chronic obstructive pulmonary disease) Acute Cholelithiases Acute Elevated LFTs Acute Physical deconditioning Acute
[2018-05-30 08:56] VITALS: BP 142/61
[2018-05-30] MEDS: NICOTINE 14mg PATCH.TD24 TD SCH (09:05)
[2018-05-30] MEDS: methylPREDNISolone SOD SUCC 40 MG/ML VIAL IVP SCH (09:22)
--- NOTE | 2018-05-30 19:02 | Diagnostic Imaging Report ---
JR WILKERSON [facility] [address] Replaced By [facility] [address] [address] Report Submission Date: May 30, 2018 7:35:27 AM PROCESSING ARCHIVIST Patient Study Name: JESSICA LINN Date: May 30, 2018 6:42:25 AM PROCESSING ARCHIVIST Modality Type: DX Gender: F Description: CHEST : 49 Institution: [facility] Physician: JR WILKERSON 2 views of the chest History: Shortness of breath Comparison: May 28, 2018 Elevated left hemidiaphragm. Diffuse reticulonodular interstitial markings are seen in the lungs. Cardiomegaly. Atherosclerotic aorta. Post sternotomy. Thoracolumbar fusion hardware is incompletely imaged. Stimulator wire, lead is seen in the mid chest. Stable 7mm right upper lung nodule. Impression: 1. Stable elevated left hemidiaphragm with left basilar atelectasis. Tiny left pleural effusion may be present. Loss of left lung volume. 2. Patchy right basilar atelectasis/infiltrate. Right upper lobe scarring. Diffuse interstitial prominence suggestive of pulmonary edema. Electronically signed on May 30, 2018 7:35:27 AM PROCESSING ARCHIVIST by: Yancy TUCKER
[2018-06-06] MEDS ORDERED: ALENDRONATE SODIUM 70 MG TABLET PO SCH (06:00)
--- NOTE | 2018-07-22 13:33 | Discharge Summary ---
Discharge Summary - Discharge Sumary History of Present Illness: Patient is a 73-year-old white female that was admitted through the ER. Patient was transported to the ER via EMS. Patient was recently discharged on 05/18/18 from the [facility] for LLL pneumonia- pt states that she finished her antibiotics (Augmentin & Doxycycline). She has not had much energy since she has been home and has continued to decline- she admits that she is still smoking 1 PPD and refuses to try to quit- discussed that her condition will continue to worsen and patient states "I am not quitting". She states that she has been laying around at home and has become increasingly short of breath and very weak. She currently lives with her son. She is requiring max assist with ADLs and has not had much of an appetite over the last few days. Condition at Discharge: Stable Home Medications: Ambulatory Orders Medication Instructions Recorded Albuterol Sulfate [Proventil Hfa] 2.5 mg D 05/28/18 Alendronate Sodium [Fosamax] 70 mg WEEK 05/28/18 Budesonide/Formoterol Fumarate 1 each D 05/28/18 [Symbicort 160-4.5 Mcg Inhaler] Ipratropium/Albuterol Sulfate 3 ml D 05/28/18 [Duoneb] Metoprolol Tartrate 50 mg BID 05/28/18 Omeprazole 40 mg BID 05/28/18 Potassium Chloride [Klor-Con M10] 10 meq D 05/28/18 Sennosides/Docusate Sodium 1 each D 05/28/18 [Docusate Sodium-Senna Tablet] Apixaban [Eliquis] 2.5 mg PO DAILY #0 06/13/18 Atorvastatin Calcium [Lipitor] 20 mg PO DAILY #0 06/13/18 Cholecalciferol [Vitamin D-3] 1 each PO DAILY #0 06/13/18 Fluticasone Propionate [Flonase] 1 each NS DAILY #0 06/13/18 Fluticasone Propionate [Flonase] 1 spray NS D bottle 06/13/18 Furosemide [Lasix] 20 mg PO DAILY tablet 06/13/18 Furosemide [Lasix] 20 mg PO DAILY #0 06/13/18 Ipratropium/Albuterol Sulfate 3 ml NEB Q4 PRN ampul.neb 06/13/18 [Duoneb] Metoprolol Tartrate [Lopressor] 100 mg PO BID tablet 06/13/18 Omeprazole 20 mg PO DAILY #30 tablet. 06/13/18 Prednisone 5 mg PO DAILY #0 06/13/18 predniSONE [Deltasone] 5 mg PO DAILY tablet 06/13/18 traMADol HCL [Ultram] 50 mg PO Q6H PRN tablet 06/13/18 Consultations this Visit: None Procedures this Visit: None Allergies/Adverse Reactions: Allergies Allergy/AdvReac Type Severity Reaction Status Date / Time adhesive tape AdvReac Mild Itchy Skin Verified 05/29/18 08:25 Discharge Summary: Patient is a 73-year-old female that was treated for Exac of COPD- she was treated with IV steroids, HFN tx's, and oxygen. She has done very well sustaining from tobacco use with the help of Nicotine patch. She is feeling better with her breathing but is still weak and short of breath with exertion. Patient would benefit from SNF care for PT and OT due to deconditioning with hopes of patient returning home. - Final Diagnosis (1) CHF (congestive heart failure) Problems: Edema to lower extremities improving, lung broderick still scattered with rhonchi, shortness of breath improving with exertion Will continue lasix and HFNs in SNF Right or Left: Right (2) COPD (chronic obstructive pulmonary disease) Problems: Will continue with steroid treatment and HFN treatments in SNF Right or Left: Right (3) Cholelithiases Problems: Will monitor diet and abdominal discomfort while in SNF Right or Left: Right (4) Physical deconditioning Problems: Will order PT and OT while in SNF for strengthening Right or Left: Right
== END 2018-05-30 10:28 | DRG 292 ==
LOC: ED 14:54 → SOUTH 16:35
PROVIDERS: ADMIT Nurse Practitioner Family; ATTEND Nurse Practitioner Family
DX: I50.9 Heart failure, unspecified (principal); J44.1 Chronic obstructive pulmonary disease with (acute) exacerbation; I48.91 Unspecified atrial fibrillation; K80.20 Calculus of gallbladder without cholecystitis without obstruction; I10 Essential (primary) hypertension; R53.81 Other malaise; F17.210 Nicotine dependence, cigarettes, uncomplicated; Z91.81 History of falling
CPT/HCPCS: 36600; 71045; 71046; 74177; 80048; 80053; 81002; 82803; 83605; 83880; 84484; 85025; 87086; 96374; 97161; 97165; 97530; 97535; 99284; J1030; J1940; J2930; Q9967; 99222; 99231; 99232; 99238; J2920; J7120; S1016

== ENCOUNTER 2018-05-30 10:30 | Inpatient (IN) | payer MEDICARE, OTHER ==
--- NOTE | 2018-05-30 13:13 | History and Physical Report ---
History of Present Illnes - History of Present Illness Reason for Visit: gait disturbance following illness History of Present Illness: 73-year-old white female who was recently admitted to acute care for exacerbation of her congestive heart failure and COPD. Patient has been having some gradually increasing shortness of breath over the last few weeks prior to admission. Patient has developed a productive cough of some green to yellow phlegm. Patient states that she is been having some increase swelling in her legs increase dyspnea with exertion and some orthopnea symptoms. Patient was treated impatiently with high flow nebulization treatment IV steroids and IV Lasix therapy. Patient has been provided for multiple daily living cares prior to admission. However at the time of discharge from acute care was felt that the patient is not able to manage her daily living cares well. It was felt that she would benefit from physical and occupational therapy to help reduce fall risk. Patient was subsequently transferred to SNF. - Past Medical History Cardiac: AFIB, CHF, HTN Pulmonary: COPD, Pneumonia Gastrointestinal: GERD Hepatobiliary: Cholelithiasis Musculoskeletal: Osteoarthritis Rheumatologic: Rheumatoid arthritis ENT: Sinusitis Renal/: UTI Endocrine: Osteoporosis - Past Surgical History Past Surgical History: Appendectomy, Hysterectomy, Other (Thoracic aneurysm repair x 2), Other (ankle fusion, joint replacement in hands, lumbar fusion) - Past Family History Father Family History: DM, Mother Family History: Cancer (uterine cancer), - Past Social History Smoke: 1 pack per day Alcohol: None Drugs: None Lives: With Family Domestic Violence: Negative - Health Maintenance Health Maintenance: Influenza Vaccine, Pneumococcal Vaccine Pneumonia Vaccine: Yes Resuscitation Status: Resusciation Status Resuscitation Status Full Code - Unable to Obtain History Unable to Obtain: No Review of Systems - Review of Systems Constitutional: negative: Fever, Chills Eyes: negative: pain, vision change ENT: negative: Ear Pain, Ear Discharge, Nose Pain, Nose Discharge, Nose Congestion, Mouth Pain Respiratory: Cough, Dry, Shortness of Breath (improved), SOB with Excertion. negative: Hemoptysis, Pleuritic Pain, Sputum, Wheezing Cardiovascular: negative: Chest Pain, Palpitations, Orthopnea Gastrointestinal: Constipation. negative: Nausea, Vomiting, Abdominal Pain, Diarrhea, Melena, Hematochezia Genitourinary: Incontinence (occasional). negative: Dysuria, Frequency Musculoskeletal: negative: Neck Pain, Shoulder Pain, Arm Pain Skin: negative: Rash Neurological: Weakness. negative: Numbness, Incoordination, Change in Speech, Confusion, Seizures - Medications/Allergies Allergies/Adverse Reactions: Allergies Allergy/AdvReac Type Severity Reaction Status Date / Time adhesive tape AdvReac Mild Itchy Skin Verified 05/29/18 08:25 Current Inpatient Medications: Current Inpatient Medications Albuterol/Ipratropium (Duoneb) 3 ml NEB Q4 PRN PRN Reason: dyspnea Atorvastatin Calcium (Lipitor) 20 mg PO D [facility] Cholecalciferol (Vitamin D-3) unit PO D [facility] Fluticasone Propionate (Flonase Nasal [place]) spray NS D [facility] Furosemide (Lasix) 40 mg PO D [facility] Insulin Human Regular (Humulin R) 0 unit SQ CHEMQID [facility]; Protocol Metoprolol Tartrate (Lopressor) 50 mg PO BID [facility] Miscellaneous (Chem Sticks) 1 each CHEMQID [facility] Pantoprazole Sodium (Protonix) 40 mg PO 0700 [facility] Potassium Chloride (Klor-Con 10) 10 meq PO DAILY [facility] Prednisone (Deltasone) 40 mg PO D [facility] Stop: 06/03/18 08:30 Prednisone (Deltasone) 30 mg PO DAILY [facility] Stop: 06/06/18 08:30 Prednisone (Deltasone) 20 mg PO DAILY [facility] Stop: 06/09/18 08:30 Prednisone (Deltasone) 10 mg PO DAILY [facility] Stop: 06/12/18 08:30 Prednisone (Deltasone) 5 mg PO DAILY [facility] Stop: 06/15/18 08:30 Fluticasone/Salmeterol (Advair 250-50 Diskus) 1 each IH BID [facility] Senna/Docusate Sodium (Senna Plus Tablet) 1 each PO D [facility] Exam - Exam Vital Signs: Vital Signs (72 hours) 05/30/18 05/30/18 02:00 08:57 Blood Pressure 142/61 Blood Pressure 127/71 [Left Arm] Blood Pressure 142/61 [Right Arm] General: Alert, Oriented to Person, Oriented to Place, Oriented to Time, Cooperative, Mild distress HEENT: Atraumatic, Hearing Grossly Normal. No: Pharyngeal Erythema, Tonsillar Exudate, Tonsillar Swelling Neck: Normal Range of Motion. No: Stridor, Rigidity, Lymphadenopathy Lungs: Normal air movement, Speaks full Sentences, Rhonchi (few scattered bilat). No: Clear to auscultation Cardiovascular: Normal S1, Normal S2, Irregularly Irregular, Atrial Fib Murmur: Systolic Murmur Abdomen: Normal bowel sounds, Soft, No tenderness, No masses Integumentary: Normal, [place], Warm, Dry Extremities: No clubbing, No cyanosis, Other (trce edema) Neurological: Normal speech, Strength Equal Bilat, Normal tone, Sensation intact, Cranial nerves 3-12 NL. No: Normal gait Psych/Mental Status: Mental status NL, Mood NL, Appropriate Affect, Intact Judgment Assessment/Plan - Assessment/Plan (1) Tobacco dependence Status: Chronic Current Visit: Yes Assessment: patient is not interested in stopping (2) CHF (congestive heart failure) Status: Chronic Current Visit: No Qualifiers: Heart failure type: unspecified Heart failure chronicity: acute on chronic Qualified Code(s): I50.9 - Heart failure, unspecified Assessment: appears improved and stable a this time (3) COPD (chronic obstructive pulmonary disease) Status: Chronic Current Visit: No Qualifiers: COPD type: COPD with acute exacerbation Qualified Code(s): J44.1 - Chronic obstructive pulmonary disease with (acute) exacerbation Assessment: improved with present treatment (4) Atrial fibrillation Status: Acute Current Visit: Yes Assessment: stable (5) Essential hypertension Status: Acute Current Visit: Yes Assessment: stable VTE Assessment - RISK FACTOR SCORE VTE RISK FACTOR SCORES: AGE OVER 60 YEARS, ACUTE RESPIRATORY FAILURE/SEVERE COPD, CONGESTIVE HEART FAILURE OR MYOCARDIAL INFARCTION - RISK VTE HIGH RISK: SCORE OF 3-4 (RISK PROXIMAL DVT 4-8%) PROPHYLAXIS NEEDED (on anticoagulation therapy)
[2018-05-30 16:05] VITALS: BMI 19.4
[2018-05-30] MEDS: INSULIN REGULAR, HUMAN 100 UNIT/ML 3ML VIAL SQ SCH ×2 (16:42→21:18)
[2018-05-30] MEDS: IPRATROPIUM/ALBUTEROL SULFATE 3 ML AMPUL.NEB NEB PRN (19:50)
[2018-05-30] MEDS ORDERED: METOPROLOL TARTRATE 50 MG TABLET PO SCH (21:00)
[2018-05-30] MEDS: FLUTICASONE/SALMETEROL 250-50 INHALER IH SCH (21:03)
[2018-05-30] MEDS: METOPROLOL TARTRATE 50 MG TABLET PO SCH (21:22)
[2018-05-31] MEDS: PANTOPRAZOLE SODIUM 40 MG TABLET.DR PO SCH (07:05)
[2018-05-31] MEDS: METOPROLOL TARTRATE 50 MG TABLET PO SCH ×2 (09:07→20:14)
[2018-05-31] MEDS: ATORVASTATIN CALCIUM 20 MG TABLET PO SCH (09:07)
[2018-05-31] MEDS: FLUTICASONE/SALMETEROL 250-50 INHALER IH SCH ×2 (09:07→20:12)
[2018-05-31] MEDS: SENNOSIDES/DOCUSATE 8.6/50 MG 1 EACH TABLET PO SCH (09:07)
[2018-05-31] MEDS: CHOLECALCIFEROL (VIT D3) 1,000 UNIT TABLET PO SCH (09:07)
[2018-05-31] MEDS: APIXABAN 2.5 MG TABLET PO SCH (09:07)
[2018-05-31] MEDS: FUROSEMIDE 40 MG TABLET PO SCH (09:07)
[2018-05-31] MEDS: FLUTICASONE PROPIONATE 120 SPRAY/16 GR BOTTLE NS SCH (09:08)
[2018-05-31] MEDS: predniSONE 10 MG TABLET PO SCH (09:08)
[2018-05-31] MEDS: POTASSIUM CHLORIDE 10 MEQ TABLET.ER PO SCH (09:08)
[2018-05-31] MEDS: INSULIN REGULAR, HUMAN 100 UNIT/ML 3ML VIAL SQ SCH ×4 (09:12→20:15)
[2018-05-31] MEDS: NICOTINE 14mg PATCH.TD24 TD SCH (14:50)
[2018-05-31] MEDS: IPRATROPIUM/ALBUTEROL SULFATE 3 ML AMPUL.NEB NEB PRN (16:03)
[2018-05-31] MEDS: traMADol HCL 50 MG TABLET PO PRN (18:36)
[2018-06-01] MEDS: PANTOPRAZOLE SODIUM 40 MG TABLET.DR PO SCH (06:03)
[2018-06-01] MEDS: IPRATROPIUM/ALBUTEROL SULFATE 3 ML AMPUL.NEB NEB PRN ×3 (06:28→20:25)
[2018-06-01] MEDS: INSULIN REGULAR, HUMAN 100 UNIT/ML 3ML VIAL SQ SCH ×4 (07:36→20:19)
--- NOTE | 2018-06-01 08:36 | Inpatient Progress Note ---
Subjective - Required Recertification Statement I anticipate X number of days because-include discharge plan: 5 - Review of Systems Events since last encounter: Patient is compliant with therapies- still extremely weak but ambulated from room to shower yesterday and did well. She is up in chair this morning eating breakfast. LCTA, generalized edema to ankles (much improvement). She continues on sliding scale insulin due to steroids. Placed patient on NCS diet due to some elevated blood sugars but family continues to bring in "high sugar foods". Patient states that she feels stronger but when she exerts herself she gets very weak afterward. We discussed building endurance. Nicotine patch is helping patients craving to smoke at this time. She is cooperative with treatment with the exception of diet. General: Fatigue, Appetite (Very good) HEENT: Denies: Eye Pain, Ear Pain Pulmonary: Dyspnea (with exertion), Cough (occasional) Cardiovascular: Edema (improvement- generalized). Denies: Chest Pain, Palpitations Gastrointestinal: Denies: Nausea, Vomiting, Abdominal Pain Genitourinary: Denies: Dysuria Musculoskeletal: Back Pain Neurological: Weakness Objective - Exam Vitals and I&O: Vital Signs Temp 97.7 F 05/31/18 20:21 Pulse 109 H 05/31/18 21:00 Resp 22 05/31/18 21:00 BP 141/63 05/31/18 20:21 Pulse Ox 98 05/31/18 20:21 Intake & Output 05/31/18 05/31/18 06/01/18 11:59 23:59 11:59 Intake Total 120 360 Balance 120 360 Weight 56.699 kg Intake: Oral 120 360 Other: Voiding Method Toilet Toilet # Bowel Movements 1 General: Alert, Oriented to Person, Oriented to Place, Oriented to Time, Cooperative, No acute distress HEENT: Atraumatic, Mouth Mucous membr. moist/[place], Nose Mucous membr. moist/[place] Neck: +2 carotid pulse wo bruit Lungs: Clear to auscultation, Normal air movement, Speaks full Sentences (while sitting in chair eating breakfast) Cardiovascular: Regularly Irregular Abdomen: Normal bowel sounds, Soft, No tenderness Extremities: Normal pulses Skin: Normal, [place], Warm Neurological: Normal speech, Strength Equal Bilat, Generalized Weakness Psych/Mental Status: Mental status NL, Mood NL, Appropriate Affect, Intact Judgment Assessment/Plan - Assessment/Plan (1) Atrial fibrillation Status: Acute Current Visit: Yes Qualifiers: Atrial fibrillation type: chronic Qualified Code(s): I48.2 - Chronic atrial fibrillation Assessment: regularly irregular Plan: will continue on home medications (2) Essential hypertension Status: Acute Current Visit: Yes Assessment: Blood pressures stable Plan: Will continue on home medications (3) Tobacco dependence Status: Chronic Current Visit: Yes Assessment: Patient doing well with the patch- has not appeared to have problem with urge to smoke Plan: Will continue wit Nicotine patch (4) Physical deconditioning Status: Acute Current Visit: No Assessment: patient is cooperative with therapy Plan: Will continue with PT/OT
[2018-06-01] MEDS: APIXABAN 2.5 MG TABLET PO SCH (08:50)
[2018-06-01] MEDS: POTASSIUM CHLORIDE 10 MEQ TABLET.ER PO SCH (08:50)
[2018-06-01] MEDS: FUROSEMIDE 40 MG TABLET PO SCH (08:50)
[2018-06-01] MEDS: METOPROLOL TARTRATE 50 MG TABLET PO SCH ×2 (08:50→20:15)
[2018-06-01] MEDS: SENNOSIDES/DOCUSATE 8.6/50 MG 1 EACH TABLET PO SCH (08:50)
[2018-06-01] MEDS: CHOLECALCIFEROL (VIT D3) 1,000 UNIT TABLET PO SCH (08:51)
[2018-06-01] MEDS: predniSONE 10 MG TABLET PO SCH (08:51)
[2018-06-01] MEDS: ATORVASTATIN CALCIUM 20 MG TABLET PO SCH (08:51)
[2018-06-01] MEDS: FLUTICASONE PROPIONATE 120 SPRAY/16 GR BOTTLE NS SCH (08:51)
[2018-06-01] MEDS: NICOTINE 14mg PATCH.TD24 TD SCH (08:52)
[2018-06-01] MEDS: FLUTICASONE/SALMETEROL 250-50 INHALER IH SCH ×2 (08:52→20:15)
[2018-06-01] MEDS: traMADol HCL 50 MG TABLET PO PRN ×2 (13:16→20:16)
[2018-06-02] MEDS: PANTOPRAZOLE SODIUM 40 MG TABLET.DR PO SCH (06:02)
[2018-06-02] MEDS: IPRATROPIUM/ALBUTEROL SULFATE 3 ML AMPUL.NEB NEB PRN ×2 (06:22→18:15)
[2018-06-02] MEDS: INSULIN REGULAR, HUMAN 100 UNIT/ML 3ML VIAL SQ SCH ×4 (07:34→20:11)
[2018-06-02] MEDS: FLUTICASONE/SALMETEROL 250-50 INHALER IH SCH ×2 (09:24→20:09)
[2018-06-02] MEDS: predniSONE 10 MG TABLET PO SCH (09:25)
[2018-06-02] MEDS: APIXABAN 2.5 MG TABLET PO SCH (09:25)
[2018-06-02] MEDS: FLUTICASONE PROPIONATE 120 SPRAY/16 GR BOTTLE NS SCH (09:26)
[2018-06-02] MEDS: METOPROLOL TARTRATE 50 MG TABLET PO SCH ×2 (09:27→20:09)
[2018-06-02] MEDS: NICOTINE 14mg PATCH.TD24 TD SCH (09:27)
[2018-06-02] MEDS: FUROSEMIDE 40 MG TABLET PO SCH (09:27)
[2018-06-02] MEDS: ATORVASTATIN CALCIUM 20 MG TABLET PO SCH (09:27)
[2018-06-02] MEDS: CHOLECALCIFEROL (VIT D3) 1,000 UNIT TABLET PO SCH (09:27)
[2018-06-02] MEDS: POTASSIUM CHLORIDE 10 MEQ TABLET.ER PO SCH (09:27)
[2018-06-02] MEDS: SENNOSIDES/DOCUSATE 8.6/50 MG 1 EACH TABLET PO SCH (09:28)
[2018-06-02] MEDS: traMADol HCL 50 MG TABLET PO PRN (17:43)
[2018-06-03] MEDS: PANTOPRAZOLE SODIUM 40 MG TABLET.DR PO SCH (06:02)
[2018-06-03] MEDS: IPRATROPIUM/ALBUTEROL SULFATE 3 ML AMPUL.NEB NEB PRN ×2 (07:23→16:21)
[2018-06-03 07:51] LABS: eGFR (Non-African) > 60
[2018-06-03 07:52] LABS: BASOPHILS % 0.5 (0.0-1.5); EOSINOPHILS % 1.1 % (0.0-6.8); MEAN CORPUSCULAR HEMOGLOBIN 29.7 pg (28.0-34.0); MONOCYTES % 3.9 % (0.0-11.0); NEUTROPHILS # 7.6 # k/uL (1.4-7.7)
[2018-06-03] MEDS: INSULIN REGULAR, HUMAN 100 UNIT/ML 3ML VIAL SQ SCH ×4 (08:11→21:02)
[2018-06-03] MEDS: FLUTICASONE PROPIONATE 120 SPRAY/16 GR BOTTLE NS SCH (08:37)
[2018-06-03] MEDS: FLUTICASONE/SALMETEROL 250-50 INHALER IH SCH ×2 (08:38→20:52)
[2018-06-03] MEDS: FUROSEMIDE 40 MG TABLET PO SCH (08:39)
[2018-06-03] MEDS: CHOLECALCIFEROL (VIT D3) 1,000 UNIT TABLET PO SCH (08:39)
[2018-06-03] MEDS: predniSONE 10 MG TABLET PO SCH (08:39)
[2018-06-03] MEDS: traMADol HCL 50 MG TABLET PO PRN (08:39)
[2018-06-03] MEDS: METOPROLOL TARTRATE 50 MG TABLET PO SCH ×2 (08:40→21:04)
[2018-06-03] MEDS: POTASSIUM CHLORIDE 10 MEQ TABLET.ER PO SCH (08:40)
[2018-06-03] MEDS: ATORVASTATIN CALCIUM 20 MG TABLET PO SCH (08:40)
[2018-06-03] MEDS: APIXABAN 2.5 MG TABLET PO SCH (08:40)
[2018-06-03] MEDS: SENNOSIDES/DOCUSATE 8.6/50 MG 1 EACH TABLET PO SCH (08:40)
[2018-06-03] MEDS: NICOTINE 14mg PATCH.TD24 TD SCH (08:41)
--- NOTE | 2018-06-03 09:09 | Diagnostic Imaging Report ---
JR WILKERSON [facility] [address] [facility]ly [facility] [address] [address] Report Submission Date: Jun 03, 2018 8:21:57 AM FOOD SERVICE UTILITY WORKER Patient Study Name: JESSICA LINN Date: Jun 03, 2018 7:48:26 AM FOOD SERVICE UTILITY WORKER Modality Type: DX Gender: F Description: CHEST : 49 Institution: [facility] Physician: JR WILKERSON Examination: Portable chest History: Weakness x 1 week. 1ppd smoker. (Hx) Comparison exam: 30 May 2018 Findings: Single view of the chest demonstrates a normal cardiac and mediastinal silhouette. Elevated left hemidiaphragm. Sternotomy wires. Diffuse parenchymal haziness bilaterally. Linear fullness at the left lung base. Degenerative changes. Lumbar fixation hardware. Neurostimulator. Impression: Continued diffuse interstitial prominence suggesting congestive edema. Continued left basilar atelectasis Electronically signed on Jun 03, 2018 8:21:57 AM FOOD SERVICE UTILITY WORKER by: Darius TUCKER
[2018-06-04] MEDS: PANTOPRAZOLE SODIUM 40 MG TABLET.DR PO SCH (06:16)
[2018-06-04] MEDS: INSULIN REGULAR, HUMAN 100 UNIT/ML 3ML VIAL SQ SCH ×4 (06:35→20:38)
--- NOTE | 2018-06-04 07:23 | Inpatient Progress Note ---
Subjective - Required Recertification Statement I anticipate X number of days because-include discharge plan: 5 - Review of Systems Events since last encounter: Patient has been doing well participating with therapies- still weak and deconditioned- we are continuing with sliding scale insulins- she is using incentive spirometer at the bedside- her only complaint is weakness. General: Fatigue HEENT: Denies: Eye Pain, Ear Pain Pulmonary: Cough Cardiovascular: Denies: Chest Pain, Light Headedness Gastrointestinal: Denies: Nausea, Vomiting, Abdominal Pain Genitourinary: Denies: Dysuria Musculoskeletal: Back Pain Neurological: Weakness Objective - Exam Vitals and I&O: Vital Signs Temp 97.2 F L 06/03/18 21:00 Pulse 109 H 06/03/18 21:00 Resp 18 06/03/18 21:00 BP 131/58 06/03/18 21:00 Pulse Ox 98 06/03/18 21:00 Intake & Output 06/03/18 06/03/18 06/04/18 11:59 23:59 11:59 Intake Total 360 440 280 Balance 360 440 280 Weight 57.153 kg 57.153 kg Intake: Oral 360 440 280 Other: Voiding Method Bedside Commode Bedside Commode # Voids 0 1 1 # Bowel Movements 0 General: Alert, Oriented to Person, Oriented to Place, Oriented to Time, Cooperative, No acute distress HEENT: Atraumatic, Mouth Mucous membr. moist/[place], Nose Mucous membr. moist/[place] Neck: +2 carotid pulse wo bruit Lungs: Speaks full Sentences, [place] Cardiovascular: Regularly Irregular Abdomen: Normal bowel sounds, Soft, No tenderness Extremities: Normal pulses, No tenderness/swelling Skin: Normal, [place], Warm, Dry Neurological: Normal speech, Strength Equal Bilat, Generalized Weakness Psych/Mental Status: Mental status NL, Mood NL, Appropriate Affect - Results Results: Laboratory Results WBC 9.10 K/ul (4.00-12.00) 06/03/18 05:40 RBC 3.74 M/ul (3.90-5.20) L 06/03/18 05:40 Hgb 11.1 g/dL (12.0-16.0) L 06/03/18 05:40 Hct 34.1 % (34.5-46.5) L 06/03/18 05:40 MCV 91.0 fl (80.0-100.0) 06/03/18 05:40 MCH 29.7 pg (28.0-34.0) 06/03/18 05:40 MCHC 32.6 g/dL (30.0-36.0) 06/03/18 05:40 RDW 14.3 % (11.3-14.3) 06/03/18 05:40 Plt Count 167 K/mm3 (130-400) 06/03/18 05:40 Neut % (Auto) 84.1 % (39.0-79.0) H 06/03/18 05:40 Lymph % (Auto) 10.4 % (16.0-50.0) L 06/03/18 05:40 [place] % (Auto) 3.9 % (0.0-11.0) 06/03/18 05:40 Eos % (Auto) 1.1 % (0.0-6.8) 06/03/18 05:40 Baso % (Auto) 0.5 (0.0-1.5) 06/03/18 05:40 Neut # (Auto) 7.6 # k/uL (1.4-7.7) 06/03/18 05:40 Lymph # (Auto) 0.9 # k/uL (0.6-4.0) 06/03/18 05:40 [place] # (Auto) 0.4 # k/uL (0.0-0.9) 06/03/18 05:40 Eos # (Auto) 0.1 # k/uL (0.0-0.6) 06/03/18 05:40 Baso # (Auto) 0.1 # k/uL (0.0-0.5) 06/03/18 05:40 Sodium 132 mmol/L (136-145) L 06/03/18 05:40 Potassium 4.4 mmol/L (3.5-5.1) 06/03/18 05:40 Chloride 94 mmol/L (98-107) L 06/03/18 05:40 Carbon Dioxide 35 mmol/L (22-30) H 06/03/18 05:40 BUN 23 mg/dL (7-17) H 06/03/18 05:40 Creatinine 0.80 mg/dL (0.52-1.04) 06/03/18 05:40 Estimated Creat Clear 68 06/03/18 05:40 Est GFR ( Amer) > 60 (60-) 06/03/18 05:40 Est GFR (Non-Af Amer) > 60 (60-) 06/03/18 05:40 Glucose 135 mg/dL (74-106) H 06/03/18 05:40 Calcium 7.6 mg/dL (8.4-10.2) L 06/03/18 05:40 Total Bilirubin 0.3 mg/dL (0.2-1.3) 06/03/18 05:40 AST 20 U/L (15-46) 06/03/18 05:40 ALT 42 U/L (13-69) 06/03/18 05:40 Alkaline Phosphatase 88 U/L (38-126) 06/03/18 05:40 Total Protein 5.6 g/dL (6.3-8.2) L 06/03/18 05:40 Albumin 2.9 g/dL (3.5-5.0) L 06/03/18 05:40 Assessment/Plan - Assessment/Plan (1) Atrial fibrillation Status: Acute Current Visit: Yes Qualifiers: Atrial fibrillation type: chronic Qualified Code(s): I48.2 - Chronic atrial fibrillation Assessment: Controlled with home meds Plan: Continuing with home medications during hospitalization (2) Essential hypertension Status: Acute Current Visit: Yes Assessment: Blood pressures have been stable Plan: Continuing with home medications (3) Tobacco dependence Status: Chronic Current Visit: Yes Assessment: Patient has done well not smoking while in hospital Plan: Nicotine patch prn (4) Physical deconditioning Status: Acute Current Visit: No Assessment: Working with therapies Plan: Will continue with PT/OT (5) Hyperglycemia Status: Acute Current Visit: Yes Assessment: Monitoring blood sugars- pt continues to have family bring in sweets Plan: Sliding scale insulin
[2018-06-04] MEDS: FLUTICASONE/SALMETEROL 250-50 INHALER IH SCH ×2 (09:10→20:45)
[2018-06-04] MEDS: predniSONE 10 MG TABLET PO SCH (09:11)
[2018-06-04] MEDS: FLUTICASONE PROPIONATE 120 SPRAY/16 GR BOTTLE NS SCH (09:11)
[2018-06-04] MEDS: CHOLECALCIFEROL (VIT D3) 1,000 UNIT TABLET PO SCH (09:12)
[2018-06-04] MEDS: NICOTINE 14mg PATCH.TD24 TD SCH (09:12)
[2018-06-04] MEDS: FUROSEMIDE 40 MG TABLET PO SCH (09:12)
[2018-06-04] MEDS: POTASSIUM CHLORIDE 10 MEQ TABLET.ER PO SCH (09:12)
[2018-06-04] MEDS: APIXABAN 2.5 MG TABLET PO SCH (09:12)
[2018-06-04] MEDS: METOPROLOL TARTRATE 50 MG TABLET PO SCH ×2 (09:12→20:38)
[2018-06-04] MEDS: SENNOSIDES/DOCUSATE 8.6/50 MG 1 EACH TABLET PO SCH (09:12)
[2018-06-04] MEDS: ATORVASTATIN CALCIUM 20 MG TABLET PO SCH (09:12)
[2018-06-04] MEDS: traMADol HCL 50 MG TABLET PO PRN (15:11)
[2018-06-04] MEDS: IPRATROPIUM/ALBUTEROL SULFATE 3 ML AMPUL.NEB NEB PRN (18:25)
[2018-06-05] MEDS: PANTOPRAZOLE SODIUM 40 MG TABLET.DR PO SCH (06:33)
--- NOTE | 2018-06-05 07:09 | Inpatient Progress Note ---
Subjective - Required Recertification Statement I anticipate X number of days because-include discharge plan: 5 - Review of Systems Events since last encounter: Patient had a drop in blood sugar this morning at 52 and symptomatic- OJ & sugar given- blood sugar back up >120- pt feeling much better. Patient had mentioned to Dr. Torrez that she was having some leg weakness and was concerned about having a stroke- Head CT was ordered and completed- no evidence of acute findings. General: Night Sweats (due to low blood sugar-easily corrected) HEENT: Denies: Eye Pain, Ear Pain Pulmonary: Cough. Denies: Dyspnea Cardiovascular: Denies: Chest Pain Gastrointestinal: Denies: Nausea, Vomiting, Abdominal Pain Genitourinary: Denies: Dysuria Musculoskeletal: Back Pain Neurological: Weakness Objective - Exam Vitals and I&O: Vital Signs Temp 97.3 F L 06/05/18 03:23 Pulse 116 H 06/05/18 03:23 Resp 18 06/05/18 03:23 BP 142/80 06/05/18 03:23 Pulse Ox 97 06/04/18 20:51 Intake & Output 06/04/18 06/04/18 06/05/18 11:59 23:59 11:59 Intake Total 640 900 720 Balance 640 900 720 Weight 57.153 kg 57.606 kg Intake: Oral 640 900 720 Other: Voiding Method Bedside Commode Bedside Commode # Voids 1 1 1 # Bowel Movements 0 General: Alert, Oriented to Person, Oriented to Place, Oriented to Time, Cooperative, No acute distress HEENT: Atraumatic, Mouth Mucous membr. moist/[place], Nose Mucous membr. moist/[place] Neck: +2 carotid pulse wo bruit Lungs: Wheezes, [place] Cardiovascular: Irregularly Irregular Abdomen: Normal bowel sounds, Soft, No tenderness Extremities: Normal pulses, No tenderness/swelling Skin: [place], Warm, Dry Neurological: Normal speech, Strength Equal Bilat, Generalized Weakness Psych/Mental Status: Mental status NL, Mood NL, Appropriate Affect - Results Results: Laboratory Results WBC 9.10 K/ul (4.00-12.00) 06/03/18 05:40 RBC 3.74 M/ul (3.90-5.20) L 06/03/18 05:40 Hgb 11.1 g/dL (12.0-16.0) L 06/03/18 05:40 Hct 34.1 % (34.5-46.5) L 06/03/18 05:40 MCV 91.0 fl (80.0-100.0) 06/03/18 05:40 MCH 29.7 pg (28.0-34.0) 06/03/18 05:40 MCHC 32.6 g/dL (30.0-36.0) 06/03/18 05:40 RDW 14.3 % (11.3-14.3) 06/03/18 05:40 Plt Count 167 K/mm3 (130-400) 06/03/18 05:40 Neut % (Auto) 84.1 % (39.0-79.0) H 06/03/18 05:40 Lymph % (Auto) 10.4 % (16.0-50.0) L 06/03/18 05:40 [place] % (Auto) 3.9 % (0.0-11.0) 06/03/18 05:40 Eos % (Auto) 1.1 % (0.0-6.8) 06/03/18 05:40 Baso % (Auto) 0.5 (0.0-1.5) 06/03/18 05:40 Neut # (Auto) 7.6 # k/uL (1.4-7.7) 06/03/18 05:40 Lymph # (Auto) 0.9 # k/uL (0.6-4.0) 06/03/18 05:40 [place] # (Auto) 0.4 # k/uL (0.0-0.9) 06/03/18 05:40 Eos # (Auto) 0.1 # k/uL (0.0-0.6) 06/03/18 05:40 Baso # (Auto) 0.1 # k/uL (0.0-0.5) 06/03/18 05:40 Sodium 132 mmol/L (136-145) L 06/03/18 05:40 Potassium 4.4 mmol/L (3.5-5.1) 06/03/18 05:40 Chloride 94 mmol/L (98-107) L 06/03/18 05:40 Carbon Dioxide 35 mmol/L (22-30) H 06/03/18 05:40 BUN 23 mg/dL (7-17) H 06/03/18 05:40 Creatinine 0.80 mg/dL (0.52-1.04) 06/03/18 05:40 Estimated Creat Clear 68 06/03/18 05:40 Est GFR ( Amer) > 60 (60-) 06/03/18 05:40 Est GFR (Non-Af Amer) > 60 (60-) 06/03/18 05:40 Glucose 135 mg/dL (74-106) H 06/03/18 05:40 Calcium 7.6 mg/dL (8.4-10.2) L 06/03/18 05:40 Total Bilirubin 0.3 mg/dL (0.2-1.3) 06/03/18 05:40 AST 20 U/L (15-46) 06/03/18 05:40 ALT 42 U/L (13-69) 06/03/18 05:40 Alkaline Phosphatase 88 U/L (38-126) 06/03/18 05:40 Total Protein 5.6 g/dL (6.3-8.2) L 06/03/18 05:40 Albumin 2.9 g/dL (3.5-5.0) L 06/03/18 05:[address] Impression: Age-related cortical volume loss. 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 No acute intracranial abnormality. Assessment/Plan - Assessment/Plan (1) Atrial fibrillation Status: Acute Current Visit: Yes Qualifiers: Atrial fibrillation type: chronic Qualified Code(s): I48.2 - Chronic atrial fibrillation Assessment: Stable on home meds Plan: Continuing with home medications (2) Essential hypertension Status: Acute Current Visit: Yes Assessment: Blood pressures have been stable Plan: Will continue with current plan of care (3) Tobacco dependence Status: Chronic Current Visit: Yes Assessment: Patient is doing well sustaining from tobacco while in hospital Plan: Nicotine patch prn (4) Physical deconditioning Status: Acute Current Visit: No Assessment: Patient working with therapies Plan: Will continue PT/OT (5) Hyperglycemia Status: Acute Current Visit: Yes Assessment: Blood sugars have been elevated- possibly due to steroids- she continues to eat sugar in room brought in by family- she has been on sliding scale insulin- had a low blood sugar this morning- easily corrected with OJ & sugar Plan: We will continue to monitor blood sugars closely
[2018-06-05] MEDS: INSULIN REGULAR, HUMAN 100 UNIT/ML 3ML VIAL SQ SCH ×4 (07:38→20:54)
[2018-06-05] MEDS: FLUTICASONE/SALMETEROL 250-50 INHALER IH SCH ×2 (08:49→20:59)
[2018-06-05] MEDS: APIXABAN 2.5 MG TABLET PO SCH (08:49)
[2018-06-05] MEDS: FLUTICASONE PROPIONATE 120 SPRAY/16 GR BOTTLE NS SCH (08:49)
[2018-06-05] MEDS: predniSONE 10 MG TABLET PO SCH (08:49)
[2018-06-05] MEDS: FUROSEMIDE 40 MG TABLET PO SCH (08:50)
[2018-06-05] MEDS: POTASSIUM CHLORIDE 10 MEQ TABLET.ER PO SCH (08:50)
[2018-06-05] MEDS: NICOTINE 14mg PATCH.TD24 TD SCH (08:50)
[2018-06-05] MEDS: ATORVASTATIN CALCIUM 20 MG TABLET PO SCH (08:51)
[2018-06-05] MEDS: SENNOSIDES/DOCUSATE 8.6/50 MG 1 EACH TABLET PO SCH (08:51)
[2018-06-05] MEDS: CHOLECALCIFEROL (VIT D3) 1,000 UNIT TABLET PO SCH (08:51)
[2018-06-05] MEDS: METOPROLOL TARTRATE 50 MG TABLET PO SCH ×2 (08:52→20:59)
[2018-06-05] MEDS: IPRATROPIUM/ALBUTEROL SULFATE 3 ML AMPUL.NEB NEB PRN ×2 (09:00→21:55)
--- NOTE | 2018-06-05 12:35 | Diagnostic Imaging Report ---
JR WILKERSON [facility] [address] [facility] [address] [place] [address]. [id number] Report Submission Date: Jun 05, 2018 6:51:07 AM WALLPAPER SCRAPER Patient Study Name: JESSICA LINN Date: Jun 05, 2018 6:11:21 AM WALLPAPER SCRAPER Modality Type: CT\SR Gender: F Description: CT BRAIN W/O CONTRAST : 49 Institution: [facility] Physician: JR WILKERSON Head CT without contrast History: Right lower extremity weakness Technique: Axial images were obtained from the skull base to the vertex without IV contrast. Findings: The ventricular system, basilar cisterns and cortical sulci are mildly prominent compatible with age-related cortical volume loss. Areas of hypodensity are present involving the bilateral parietal and occipital lobes, worse on the right than left. These findings are consistent with old areas of infarct, larger on the right than on the left. There is no positive mass effect or intra/extra-axial hemorrhage. There is mucosal thickening of left anterior ethmoid air cells. Otherwise, paranasal sinuses and mastoid air cells are clear and the calvarium is intact. Impression: Age-related cortical volume loss. 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 No acute intracranial abnormality. Electronically signed on Jun 05, 2018 6:51:07 AM WALLPAPER SCRAPER by: Martha TUCKER
[2018-06-06] MEDS: traMADol HCL 50 MG TABLET PO PRN (03:43)
[2018-06-06] MEDS: PANTOPRAZOLE SODIUM 40 MG TABLET.DR PO SCH (06:04)
[2018-06-06] MEDS: FLUTICASONE/SALMETEROL 250-50 INHALER IH SCH ×2 (08:43→21:13)
[2018-06-06] MEDS: INSULIN REGULAR, HUMAN 100 UNIT/ML 3ML VIAL SQ SCH ×4 (08:43→21:05)
[2018-06-06] MEDS: FLUTICASONE PROPIONATE 120 SPRAY/16 GR BOTTLE NS SCH (08:44)
[2018-06-06] MEDS: METOPROLOL TARTRATE 50 MG TABLET PO SCH ×2 (08:44→21:05)
[2018-06-06] MEDS: APIXABAN 2.5 MG TABLET PO SCH (08:44)
[2018-06-06] MEDS: POTASSIUM CHLORIDE 10 MEQ TABLET.ER PO SCH (08:44)
[2018-06-06] MEDS: SENNOSIDES/DOCUSATE 8.6/50 MG 1 EACH TABLET PO SCH (08:45)
[2018-06-06] MEDS: ATORVASTATIN CALCIUM 20 MG TABLET PO SCH (08:45)
[2018-06-06] MEDS: CHOLECALCIFEROL (VIT D3) 1,000 UNIT TABLET PO SCH (08:45)
[2018-06-06] MEDS: FUROSEMIDE 40 MG TABLET PO SCH (08:45)
[2018-06-06] MEDS: NICOTINE 14mg PATCH.TD24 TD SCH (08:45)
[2018-06-06] MEDS: predniSONE 10 MG TABLET PO SCH (08:45)
[2018-06-06] MEDS: IPRATROPIUM/ALBUTEROL SULFATE 3 ML AMPUL.NEB NEB PRN (19:32)
[2018-06-07] MEDS: IPRATROPIUM/ALBUTEROL SULFATE 3 ML AMPUL.NEB NEB PRN ×3 (01:58→23:18)
[2018-06-07] MEDS: traMADol HCL 50 MG TABLET PO PRN ×2 (02:34→23:28)
[2018-06-07] MEDS: PANTOPRAZOLE SODIUM 40 MG TABLET.DR PO SCH (06:08)
[2018-06-07] MEDS: INSULIN REGULAR, HUMAN 100 UNIT/ML 3ML VIAL SQ SCH ×4 (07:31→20:28)
[2018-06-07] MEDS: FLUTICASONE/SALMETEROL 250-50 INHALER IH SCH ×2 (08:52→20:28)
[2018-06-07] MEDS: APIXABAN 2.5 MG TABLET PO SCH (08:53)
[2018-06-07] MEDS: predniSONE 10 MG TABLET PO SCH (08:53)
[2018-06-07] MEDS: SENNOSIDES/DOCUSATE 8.6/50 MG 1 EACH TABLET PO SCH (08:54)
[2018-06-07] MEDS: METOPROLOL TARTRATE 50 MG TABLET PO SCH ×2 (08:54→20:30)
[2018-06-07] MEDS: FUROSEMIDE 40 MG TABLET PO SCH (08:54)
[2018-06-07] MEDS: NICOTINE 14mg PATCH.TD24 TD SCH (08:54)
[2018-06-07] MEDS: POTASSIUM CHLORIDE 10 MEQ TABLET.ER PO SCH (08:54)
[2018-06-07] MEDS: CHOLECALCIFEROL (VIT D3) 1,000 UNIT TABLET PO SCH (08:54)
[2018-06-07] MEDS: ATORVASTATIN CALCIUM 20 MG TABLET PO SCH (08:54)
[2018-06-07] MEDS: FLUTICASONE PROPIONATE 120 SPRAY/16 GR BOTTLE NS SCH (10:14)
[2018-06-08] MEDS: PANTOPRAZOLE SODIUM 40 MG TABLET.DR PO SCH (06:10)
[2018-06-08] MEDS: INSULIN REGULAR, HUMAN 100 UNIT/ML 3ML VIAL SQ SCH ×4 (07:29→20:37)
[2018-06-08] MEDS: SENNOSIDES/DOCUSATE 8.6/50 MG 1 EACH TABLET PO SCH (08:58)
[2018-06-08] MEDS: NICOTINE 14mg PATCH.TD24 TD SCH (08:58)
[2018-06-08] MEDS: FUROSEMIDE 40 MG TABLET PO SCH (08:59)
[2018-06-08] MEDS: FLUTICASONE PROPIONATE 120 SPRAY/16 GR BOTTLE NS SCH (08:59)
[2018-06-08] MEDS: POTASSIUM CHLORIDE 10 MEQ TABLET.ER PO SCH (08:59)
[2018-06-08] MEDS: predniSONE 10 MG TABLET PO SCH (08:59)
[2018-06-08] MEDS: APIXABAN 2.5 MG TABLET PO SCH (08:59)
[2018-06-08] MEDS: METOPROLOL TARTRATE 50 MG TABLET PO SCH ×2 (08:59→20:36)
[2018-06-08] MEDS: CHOLECALCIFEROL (VIT D3) 1,000 UNIT TABLET PO SCH (08:59)
[2018-06-08] MEDS: ATORVASTATIN CALCIUM 20 MG TABLET PO SCH (09:00)
[2018-06-08] MEDS: FLUTICASONE/SALMETEROL 250-50 INHALER IH SCH ×2 (09:05→20:35)
[2018-06-09] MEDS: PANTOPRAZOLE SODIUM 40 MG TABLET.DR PO SCH (06:07)
[2018-06-09] MEDS: INSULIN REGULAR, HUMAN 100 UNIT/ML 3ML VIAL SQ SCH ×4 (07:48→20:40)
[2018-06-09] MEDS: FLUTICASONE/SALMETEROL 250-50 INHALER IH SCH ×2 (09:55→20:39)
[2018-06-09] MEDS: NICOTINE 14mg PATCH.TD24 TD SCH (09:56)
[2018-06-09] MEDS: POTASSIUM CHLORIDE 10 MEQ TABLET.ER PO SCH (09:56)
[2018-06-09] MEDS: FLUTICASONE PROPIONATE 120 SPRAY/16 GR BOTTLE NS SCH (09:56)
[2018-06-09] MEDS: predniSONE 10 MG TABLET PO SCH (09:56)
[2018-06-09] MEDS: APIXABAN 2.5 MG TABLET PO SCH (09:56)
[2018-06-09] MEDS: SENNOSIDES/DOCUSATE 8.6/50 MG 1 EACH TABLET PO SCH (09:57)
[2018-06-09] MEDS: CHOLECALCIFEROL (VIT D3) 1,000 UNIT TABLET PO SCH (09:57)
[2018-06-09] MEDS: METOPROLOL TARTRATE 50 MG TABLET PO SCH ×2 (09:57→20:39)
[2018-06-09] MEDS: FUROSEMIDE 40 MG TABLET PO SCH (09:57)
[2018-06-09] MEDS: ATORVASTATIN CALCIUM 20 MG TABLET PO SCH (09:57)
[2018-06-09] MEDS: IPRATROPIUM/ALBUTEROL SULFATE 3 ML AMPUL.NEB NEB PRN (11:30)
[2018-06-10] MEDS: PANTOPRAZOLE SODIUM 40 MG TABLET.DR PO SCH (06:21)
--- NOTE | 2018-06-10 07:44 | Inpatient Progress Note ---
Subjective - Required Recertification Statement I anticipate X number of days because-include discharge plan: 4 - Review of Systems Events since last encounter: Patient continues to participate with therapies. She is up in her chair this morning- alert and oriented- she is up eating breakfast- she is in no acute distress- she states that she is feeling much better and feels that she is getting stronger. General: Denies: Chills, Night Sweats HEENT: Denies: Head Aches, Eye Pain, Sore Throat Pulmonary: Cough Cardiovascular: Denies: Chest Pain, Light Headedness Gastrointestinal: Denies: Nausea, Vomiting, Abdominal Pain Genitourinary: Denies: Dysuria Musculoskeletal: Denies: Neck Pain, Back Pain Neurological: Weakness Objective - Exam Vitals and I&O: Vital Signs Temp 98.5 F 06/09/18 20:13 Pulse 97 H 06/09/18 21:00 Resp 20 06/09/18 21:00 BP 127/56 06/09/18 20:13 Pulse Ox 97 06/09/18 20:13 Intake & Output 06/09/18 06/09/18 06/10/18 11:59 23:59 11:59 Intake Total 340 120 Output Total 1200 Balance 340 120 -1200 Weight 126 kg 57.153 kg Intake: Oral 340 120 Output: Urine 1200 Other: Voiding Method Bedside Commode Bedside Commode # Voids 2 3 # Bowel Movements 0 General: Alert, Oriented to Person, Oriented to Place, Oriented to Time, Cooperative, No acute distress HEENT: Atraumatic, [place], Mouth Mucous membr. moist/[place], Nose Mucous membr. moist/[place] Neck: Supple, +2 carotid pulse wo bruit Lungs: Clear to auscultation, Normal air movement, Speaks full Sentences Cardiovascular: Irregularly Irregular Abdomen: Normal bowel sounds, Soft, No tenderness Extremities: Normal pulses, No tenderness/swelling Skin: Normal, [place], Warm, Dry Neurological: Normal speech, Strength Equal Bilat, Sensation intact, Cranial nerves 3-12 NL Psych/Mental Status: Mental status NL, Mood NL, Appropriate Affect - Results Results: Laboratory Results WBC 9.10 K/ul (4.00-12.00) 06/03/18 05:40 RBC 3.74 M/ul (3.90-5.20) L 06/03/18 05:40 Hgb 11.1 g/dL (12.0-16.0) L 06/03/18 05:40 Hct 34.1 % (34.5-46.5) L 06/03/18 05:40 MCV 91.0 fl (80.0-100.0) 06/03/18 05:40 MCH 29.7 pg (28.0-34.0) 06/03/18 05:40 MCHC 32.6 g/dL (30.0-36.0) 06/03/18 05:40 RDW 14.3 % (11.3-14.3) 06/03/18 05:40 Plt Count 167 K/mm3 (130-400) 06/03/18 05:40 Neut % (Auto) 84.1 % (39.0-79.0) H 06/03/18 05:40 Lymph % (Auto) 10.4 % (16.0-50.0) L 06/03/18 05:40 [place] % (Auto) 3.9 % (0.0-11.0) 06/03/18 05:40 Eos % (Auto) 1.1 % (0.0-6.8) 06/03/18 05:40 Baso % (Auto) 0.5 (0.0-1.5) 06/03/18 05:40 Neut # (Auto) 7.6 # k/uL (1.4-7.7) 06/03/18 05:40 Lymph # (Auto) 0.9 # k/uL (0.6-4.0) 06/03/18 05:40 [place] # (Auto) 0.4 # k/uL (0.0-0.9) 06/03/18 05:40 Eos # (Auto) 0.1 # k/uL (0.0-0.6) 06/03/18 05:40 Baso # (Auto) 0.1 # k/uL (0.0-0.5) 06/03/18 05:40 Sodium 132 mmol/L (136-145) L 06/03/18 05:40 Potassium 4.4 mmol/L (3.5-5.1) 06/03/18 05:40 Chloride 94 mmol/L (98-107) L 06/03/18 05:40 Carbon Dioxide 35 mmol/L (22-30) H 06/03/18 05:40 BUN 23 mg/dL (7-17) H 06/03/18 05:40 Creatinine 0.80 mg/dL (0.52-1.04) 06/03/18 05:40 Estimated Creat Clear 68 06/03/18 05:40 Est GFR ( Amer) > 60 (60-) 06/03/18 05:40 Est GFR (Non-Af Amer) > 60 (60-) 06/03/18 05:40 Glucose 135 mg/dL (74-106) H 06/03/18 05:40 Calcium 7.6 mg/dL (8.4-10.2) L 06/03/18 05:40 Total Bilirubin 0.3 mg/dL (0.2-1.3) 06/03/18 05:40 AST 20 U/L (15-46) 06/03/18 05:40 ALT 42 U/L (13-69) 06/03/18 05:40 Alkaline Phosphatase 88 U/L (38-126) 06/03/18 05:40 NT-Pro-B Natriuret Pep 5905.8 pg/mL (15.0-125.0) H 06/03/18 06:00 Total Protein 5.6 g/dL (6.3-8.2) L 06/03/18 05:40 Albumin 2.9 g/dL (3.5-5.0) L 06/03/18 05:40 Assessment/Plan - Assessment/Plan (1) Atrial fibrillation Status: Acute Current Visit: Yes Qualifiers: Atrial fibrillation type: chronic Qualified Code(s): I48.2 - Chronic atrial fibrillation Assessment: No abnormal bruising- heart rate stable Plan: continue on eliquis (2) Essential hypertension Status: Acute Current Visit: Yes Assessment: Blood pressures stable Plan: continue blood pressure medication (3) Tobacco dependence Status: Chronic Current Visit: Yes Assessment: pt has been tolerating no smoking very well- states she is doing fine without it Plan: Continue to assess (4) Physical deconditioning Status: Acute Current Visit: No Assessment: Participating with therapy Plan: Continue working with therapies (5) Hyperglycemia Status: Acute Current Visit: Yes Assessment: blood sugars elevated- but have improved Plan: continue with sliding scale insulin
[2018-06-10] MEDS: FLUTICASONE/SALMETEROL 250-50 INHALER IH SCH ×2 (08:58→22:21)
[2018-06-10] MEDS: INSULIN REGULAR, HUMAN 100 UNIT/ML 3ML VIAL SQ SCH ×4 (08:59→21:34)
[2018-06-10] MEDS: predniSONE 10 MG TABLET PO SCH (09:00)
[2018-06-10] MEDS: ATORVASTATIN CALCIUM 20 MG TABLET PO SCH (09:00)
[2018-06-10] MEDS: POTASSIUM CHLORIDE 10 MEQ TABLET.ER PO SCH (09:00)
[2018-06-10] MEDS: APIXABAN 2.5 MG TABLET PO SCH (09:00)
[2018-06-10] MEDS: SENNOSIDES/DOCUSATE 8.6/50 MG 1 EACH TABLET PO SCH (09:00)
[2018-06-10] MEDS: CHOLECALCIFEROL (VIT D3) 1,000 UNIT TABLET PO SCH (09:00)
[2018-06-10] MEDS: FUROSEMIDE 40 MG TABLET PO SCH (09:01)
[2018-06-10] MEDS: NICOTINE 14mg PATCH.TD24 TD SCH (09:01)
[2018-06-10] MEDS: FLUTICASONE PROPIONATE 120 SPRAY/16 GR BOTTLE NS SCH (09:01)
[2018-06-10] MEDS: METOPROLOL TARTRATE 50 MG TABLET PO SCH ×2 (09:04→21:02)
[2018-06-10] MEDS: IPRATROPIUM/ALBUTEROL SULFATE 3 ML AMPUL.NEB NEB PRN (19:37)
[2018-06-11] MEDS: PANTOPRAZOLE SODIUM 40 MG TABLET.DR PO SCH (06:14)
[2018-06-11] MEDS: INSULIN REGULAR, HUMAN 100 UNIT/ML 3ML VIAL SQ SCH ×4 (07:25→20:32)
[2018-06-11] MEDS: FLUTICASONE/SALMETEROL 250-50 INHALER IH SCH ×2 (08:21→20:35)
[2018-06-11] MEDS: predniSONE 10 MG TABLET PO SCH (09:47)
[2018-06-11] MEDS: FLUTICASONE PROPIONATE 120 SPRAY/16 GR BOTTLE NS SCH (09:47)
[2018-06-11] MEDS: APIXABAN 2.5 MG TABLET PO SCH (09:47)
[2018-06-11] MEDS: NICOTINE 14mg PATCH.TD24 TD SCH (09:48)
[2018-06-11] MEDS: ATORVASTATIN CALCIUM 20 MG TABLET PO SCH (09:48)
[2018-06-11] MEDS: CHOLECALCIFEROL (VIT D3) 1,000 UNIT TABLET PO SCH (09:48)
[2018-06-11] MEDS: FUROSEMIDE 40 MG TABLET PO SCH (09:48)
[2018-06-11] MEDS: SENNOSIDES/DOCUSATE 8.6/50 MG 1 EACH TABLET PO SCH (09:48)
[2018-06-11] MEDS: POTASSIUM CHLORIDE 10 MEQ TABLET.ER PO SCH (09:48)
[2018-06-11] MEDS: traMADol HCL 50 MG TABLET PO PRN ×2 (10:12→20:48)
[2018-06-11] MEDS: METOPROLOL TARTRATE 50 MG TABLET PO SCH ×2 (10:21→21:57)
[2018-06-11 17:10] LABS: BASOPHILS % 0.4 (0.0-1.5); EOSINOPHILS % 1.6 % (0.0-6.8); MEAN CORPUSCULAR HEMOGLOBIN 29.7 pg (28.0-34.0); MONOCYTES % 4.6 % (0.0-11.0); NEUTROPHILS # 6.8 # k/uL (1.4-7.7)
[2018-06-11 17:12] LABS: eGFR (Non-African) > 60
[2018-06-11] MEDS: IPRATROPIUM/ALBUTEROL SULFATE 3 ML AMPUL.NEB NEB PRN ×2 (18:39→21:57)
[2018-06-12] MEDS: PANTOPRAZOLE SODIUM 40 MG TABLET.DR PO SCH (05:21)
[2018-06-12] MEDS: INSULIN REGULAR, HUMAN 100 UNIT/ML 3ML VIAL SQ SCH ×4 (07:40→21:32)
[2018-06-12] MEDS: FLUTICASONE/SALMETEROL 250-50 INHALER IH SCH ×2 (09:31→21:30)
[2018-06-12] MEDS: predniSONE 10 MG TABLET PO SCH (09:32)
[2018-06-12] MEDS: APIXABAN 2.5 MG TABLET PO SCH (09:33)
[2018-06-12] MEDS: FLUTICASONE PROPIONATE 120 SPRAY/16 GR BOTTLE NS SCH (09:33)
[2018-06-12] MEDS: NICOTINE 14mg PATCH.TD24 TD SCH (09:33)
[2018-06-12] MEDS: POTASSIUM CHLORIDE 10 MEQ TABLET.ER PO SCH (09:33)
[2018-06-12] MEDS: ATORVASTATIN CALCIUM 20 MG TABLET PO SCH (09:34)
[2018-06-12] MEDS: FUROSEMIDE 20 MG TABLET PO SCH (09:34)
[2018-06-12] MEDS: METOPROLOL TARTRATE 50 MG TABLET PO SCH ×2 (09:35→21:32)
[2018-06-12] MEDS: CHOLECALCIFEROL (VIT D3) 1,000 UNIT TABLET PO SCH (09:35)
[2018-06-12] MEDS: SENNOSIDES/DOCUSATE 8.6/50 MG 1 EACH TABLET PO SCH (09:35)
[2018-06-12] MEDS: IPRATROPIUM/ALBUTEROL SULFATE 3 ML AMPUL.NEB NEB PRN ×2 (15:33→19:35)
[2018-06-12] MEDS: traMADol HCL 50 MG TABLET PO PRN (15:33)
[2018-06-13] MEDS: INSULIN REGULAR, HUMAN 100 UNIT/ML 3ML VIAL SQ SCH ×2 (07:13→11:37)
[2018-06-13] MEDS: NICOTINE 14mg PATCH.TD24 TD SCH (08:03)
[2018-06-13] MEDS: PANTOPRAZOLE SODIUM 40 MG TABLET.DR PO SCH (08:03)
[2018-06-13] MEDS: ATORVASTATIN CALCIUM 20 MG TABLET PO SCH (08:04)
[2018-06-13] MEDS: POTASSIUM CHLORIDE 10 MEQ TABLET.ER PO SCH (08:04)
[2018-06-13] MEDS: CHOLECALCIFEROL (VIT D3) 1,000 UNIT TABLET PO SCH (08:04)
[2018-06-13] MEDS: predniSONE 10 MG TABLET PO SCH (08:04)
[2018-06-13] MEDS: FUROSEMIDE 20 MG TABLET PO SCH (08:04)
[2018-06-13] MEDS: FLUTICASONE/SALMETEROL 250-50 INHALER IH SCH (08:05)
[2018-06-13] MEDS: APIXABAN 2.5 MG TABLET PO SCH (08:05)
[2018-06-13] MEDS: SENNOSIDES/DOCUSATE 8.6/50 MG 1 EACH TABLET PO SCH (08:05)
[2018-06-13] MEDS: FLUTICASONE PROPIONATE 120 SPRAY/16 GR BOTTLE NS SCH (08:05)
[2018-06-13] MEDS: METOPROLOL TARTRATE 50 MG TABLET PO SCH (08:07)
[2018-06-13 08:53] VITALS: BP 125/49
--- NOTE | 2018-06-13 09:33 | Discharge Summary ---
Discharge Summary - Discharge Sumary History of Present Illness: 73-year-old white female who was recently admitted to acute care for exacerbation of her congestive heart failure and COPD. Patient has been having some gradually increasing shortness of breath over the last few weeks prior to admission. Patient has developed a productive cough of some green to yellow phlegm. Patient states that she is been having some increase swelling in her legs increase dyspnea with exertion and some orthopnea symptoms. Patient was treated impatiently with high flow nebulization treatment IV steroids and IV Lasix therapy. Patient has been provided for multiple daily living cares prior to admission. However at the time of discharge from acute care was felt that the patient is not able to manage her daily living cares well. It was felt that she would benefit from physical and occupational therapy to help reduce fall risk. Patient was subsequently transferred to SNF. Condition at Discharge: Stable Home Medications: Ambulatory Orders Medication Instructions Recorded Albuterol Sulfate [Proventil Hfa] 2.5 mg D 05/28/18 Alendronate Sodium [Fosamax] 70 mg WEEK 05/28/18 Budesonide/Formoterol Fumarate 1 each D 05/28/18 [Symbicort 160-4.5 Mcg Inhaler] Ipratropium/Albuterol Sulfate 3 ml D 05/28/18 [Duoneb] Metoprolol Tartrate 50 mg BID 05/28/18 Omeprazole 40 mg BID 05/28/18 Potassium Chloride [Klor-Con M10] 10 meq D 05/28/18 Sennosides/Docusate Sodium 1 each D 05/28/18 [Docusate Sodium-Senna Tablet] Apixaban [Eliquis] 2.5 mg PO DAILY #0 06/13/18 Atorvastatin Calcium [Lipitor] 20 mg PO DAILY #0 06/13/18 Cholecalciferol [Vitamin D-3] 1 each PO DAILY #0 06/13/18 Fluticasone Propionate [Flonase] 1 each NS DAILY #0 06/13/18 Fluticasone Propionate [Flonase] 1 spray NS D bottle 06/13/18 Furosemide [Lasix] 20 mg PO DAILY tablet 06/13/18 Furosemide [Lasix] 20 mg PO DAILY #0 06/13/18 Ipratropium/Albuterol Sulfate 3 ml NEB Q4 PRN ampul.neb 06/13/18 [Duoneb] Metoprolol Tartrate [Lopressor] 100 mg PO BID tablet 06/13/18 Omeprazole 20 mg PO DAILY #30 tablet. 06/13/18 Prednisone 5 mg PO DAILY #0 06/13/18 predniSONE [Deltasone] 5 mg PO DAILY tablet 06/13/18 traMADol HCL [Ultram] 50 mg PO Q6H PRN tablet 06/13/18 Consultations this Visit: None, Other (Pt has been working with PT/OT) Procedures this Visit: None Allergies/Adverse Reactions: Allergies Allergy/AdvReac Type Severity Reaction Status Date / Time adhesive tape AdvReac Mild Itchy Skin Verified 05/29/18 08:25 Discharge Summary: Patient is a 73-year-old female that was admitted SNF for PT/OT and monitoring of respiratory illness. She has done well participating with therapies and appears to be getting stronger. She has done well with the nicotine patch but she cannot promise that she wont start smoking again. I educated her that if she was going to smoke to please remove oxygen first as this is a major fire hazard and could cause serious injury. I also explained that if she started smoking again her condition would decline and it could be fatal- she voiced understanding. She is excited to go home today and feels ready. Hospital Course: Received PT/OT. Respiratory txs. PO steroids. Sliding Scale Insulin- refuses to do insulin at home- educated on diet and cutting out sugars- she stated "I probably wont do that either" - Final Diagnosis (1) Atrial fibrillation Problems: Stable on home meds Right or Left: Right (2) Essential hypertension Problems: Stable on home medications Right or Left: Right (3) Tobacco dependence Problems: Patient has done very well not smoking and has not really had to use the Nicotine patch- however, patient plans on smoking again- education provided that her condition will continue to decline. Right or Left: Right (4) Physical deconditioning Problems: Patient has been doing well with therapies- she is feeling much stronger- her activity has increased Right or Left: Right (5) Hyperglycemia Problems: Hyperglycemia due to steroid use- has been on sliding scale- will have patient start a NCS diet (however, she states she won't follow it) Right or Left: Right
== END 2018-06-13 14:20 | disposition home or self-care (01) | DRG 192 ==
LOC: SOUTH 10:30
PROVIDERS: ADMIT Nurse Practitioner Family; ATTEND Nurse Practitioner Family
DX: J44.1 Chronic obstructive pulmonary disease with (acute) exacerbation (principal); I48.2 Chronic atrial fibrillation; I50.9 Heart failure, unspecified; R26.89 Other abnormalities of gait and mobility; F17.210 Nicotine dependence, cigarettes, uncomplicated; E16.2 Hypoglycemia, unspecified; M62.81 Muscle weakness (generalized); I10 Essential (primary) hypertension
CPT/HCPCS: 36415; 70450; 71046; 80053; 83880; 85025; 94640; 94760; 97535; 99222; 99231; 99232; 99238; J1815; J7512

== ENCOUNTER 2018-07-23 12:30 | Emergency (ER) | payer MEDICARE, OTHER ==
--- NOTE | 2018-07-23 13:17 | ED Physician Documentation ---
Addendum entered and electronically signed by Yara Arriaza PA 07/23/18 15:53: [address] Finley at [facility] they agree to take the patient as a direct admit. Patient is not safe to return home. Xrays could not be uploaded to a disc. She will need to have xrays repeated. Original Note: Fall - HPI Stated Complaint: fall, R hip pain Chief Complaint: Fall Additional Information: Patient is a 73-year-old female who lives with her son. She states around 1 a.m. this morning she fell while ambulating from the bathroom. Her son got home around 2 a.m. and helped her back to bed. She arrives to ER via [facility] with c/o back pain and right hip pain. Family state that patient had been doing very well at home using her walker. Over the last week she has become more weak and has had a decrease in appetite. She was receiving Home Health up until last week. Onset: today Where: home Context: lost balance, fell from standing. denies: became dizzy, fainted r: moderate Associated Symptoms:: denies: no loss of consciousness Location of Pain/Injury: lower back, hip (c/o right hip pain). denies: head, neck Injury to Right Extremity: hip (c/o right hip pain) Injury to Left Extremity: none Front/Back of Body, Lg (Sampson): 1 - right hip pain 2 - lumbar discomfort - ROS CONST: weakness (increasing weakness x 1 week). denies: recent illness NEURO: denies: dizziness MS/SKIN/LYMPH: weakness, back pain EYES/ENT: none CVS/RESP: denies: chest pain, shortness of breath GI/: other (decreased appetite). denies: problems urinating, nausea - PAST HX Past History: cardiac disease, A-Fib, COPD, other (CHF, RA, Hyperglycemia d/t steroids, ) Immunizations: UTD - SOCIAL HX Smoking History: quit less than 1 year (quit about one month ago), greater than 1 pack/day Alcohol Use: none Drug Use: none - FAMILY HX Family History: other (CA, DM) - VITAL SIGNS Vital Signs: Vital Signs Temp Pulse Resp BP Pulse Ox 98.2 F 81 20 123/35 93 07/23/18 12:30 07/23/18 12:30 07/23/18 12:30 07/23/18 12:30 07/23/18 12:30 - REVIEWED ASSESSMENTS Nursing Assessment Reviewed: Yes Vitals Reviewed: Yes <Estelle Maria - Last Filed: 07/23/18 13:15> - VITAL SIGNS Vital Signs: Vital Signs Temp Pulse Resp BP Pulse Ox 98.2 F 68 16 159/43 96 07/23/18 12:30 07/23/18 14:01 07/23/18 14:01 07/23/18 14:01 07/23/18 14:01 <Yara Arriaza - Last Filed: 07/23/18 15:20> - PAST HX Allergies/Adverse Reactions: Allergies Allergy/AdvReac Type Severity Reaction Status Date / Time adhesive tape AdvReac Mild Itchy Skin Verified 07/23/18 14:41 Home Medications: Ambulatory Orders Medication Instructions Recorded Albuterol Sulfate [Proventil Hfa] 2.5 mg D 05/28/18 Budesonide/Formoterol Fumarate 1 each D 05/28/18 [Symbicort 160-4.5 Mcg Inhaler] Omeprazole (Nf) [Prilosec (Nf)] 40 mg BID 05/28/18 Potassium Chloride [Klor-Con M10] 10 meq PO D 05/28/18 Sennosides/Docusate Sodium 1 each D 05/28/18 [Docusate Sodium-Senna Tablet] Atorvastatin Calcium [Lipitor] 20 mg PO DAILY #0 06/13/18 Cholecalciferol [Vitamin D-3] 1 each PO DAILY #0 06/13/18 Fluticasone Propionate [Flonase] 1 each NS DAILY #0 06/13/18 Ipratropium/Albuterol Sulfate 3 ml NEB Q4 PRN ampul.neb 06/13/18 [Duoneb] Metoprolol Tartrate [Lopressor] 100 mg PO BID tablet 06/13/18 traMADol HCL [Ultram] 50 mg PO Q6H PRN tablet 06/13/18 Apixaban [Eliquis] 2.5 mg PO BID 07/23/18 Diltiazem HCl [Diltiazem 24Hr Cd] 240 mg PO DAILY 07/23/18 Furosemide [Lasix] 40 mg PO DAILY 07/23/18 Spironolactone [Aldactone] 25 mg PO DAILY 07/23/18 Progress - Progress Progress: 1445 Patient states her right hip pain has resolved. She is still having low back pain which is chronic. She states her low back pain is 7/10 all day every day and continues in the ED. Patient wants to go home. Family states she cannot take care of herself at home. 1516 Patient's family wants patient transferred to by ambulance. They will call 911 and have patient transferred. <Yara Arriaza - Last Filed: 07/23/18 15:20> ED Results Lab/Radiology - Orders Orders: ED Orders Category Date Time Status RT HIP 2VIEW COMPLETE [RAD] Stat Exams 07/23/18 Taken <Estelle Maria - Last Filed: 07/23/18 13:15> - Radiology Radiology Impressions: Xray right hip and pelvis show no obvious hip fracture on portable xray machine. Xrays cannot be loaded up into [employer] or [facility] for read due to internet difficulties. Will require over read by radiologist. - Orders Orders: ED Orders Category Date Time Status RT HIP 2VIEW COMPLETE [RAD] Stat Exams 07/23/18 Taken HYDROcodone /APAP 5/325 [[place] 5/325] Med 07/23/18 13:39 Discontinued 1 each PO NOW ONE <Yara Arriaza - Last Filed: 07/23/18 15:20> Fall Physical Exam - Physical Exam General Appearance: alert, moderate distress Head: non-tender, no swelling, no obvious injury Neck: non-tender, painless ROM, trachea midline Eye: MARY, EOMI ENT: nml external inspection Resp/CVS: chest non-tender, heart sounds nml, rhonchi Abdomen: soft, normal bowel sounds Neuro: oriented x3, sensation nml, college or university faculty member nml Skin: pallor, warm, dry Back: other (c/o low back pain on palpation) Extremities: unable to bear weight, other (c/o right hip pain on palpation) Joint: limited ROM, painful, unable to bear weight - [place] Score Eyes Open: Spontaneous Speech: Oriented Motor: Obeys Commands <Estelle Maria - Last Filed: 07/23/18 13:15> Discharge <Estelle Maria - Last Filed: 07/23/18 13:15> Decision to Admit: NO Date of Decison to Admit: 07/23/18 Decision Time: 15:20 <Yara Arriaza - Last Filed: 07/23/18 15:20> Clincal Impression: Fall Qualifiers: Encounter type: initial encounter Qualified Code(s): W19.XXXA - Unspecified fall, initial encounter Referrals: Pedro Torrez MD [Primary Care Provider] - 2 Days Additional Instructions: 1. Take oxycodone as previously prescribed for pain 2. Recommend nursing facility placement for patient safety. It is unsafe for her to live alone. 3. Follow up with PCP within 3 days 4. Return to the ER immediately for new or worsening symptoms. Condition: Stable Disposition: 01 HOME, SELF-CARE
[2018-07-23] MEDS: HYDROcodone /APAP 5/325 1 EACH TABLET PO ONE (13:45)
[2018-07-23 16:50] VITALS: BP 129/68
--- NOTE | 2018-07-23 17:38 | Diagnostic Imaging Report ---
ARPIT MEI [facility] [address] [facility] [address] [place] [address]. [id number] Report Submission Date: Jul 23, 2018 4:52:12 PM LENS GRINDER APPRENTICE Patient Study Name: JESSICA LINN Date: Jul 23, 2018 12:48:12 PM LENS GRINDER APPRENTICE Modality Type: DX Gender: F Description: : 49 Institution: [facility] Physician: ARPIT MEI Examination: Plain film right hip History: RIGHT HIP PAIN POST FALL TODAY. PAIN PUMP FOR LOWER BACK PAIN PRESENT. Comparison exams: None provided Findings: 4 views of the right hip demonstrates osteopenia. Cortical margins appear to be intact. Stimulator projecting over the hip articulation. Vascular calcifications. Lumbar spine fixation hardware. Impression: Osteopenia. No acute appearing osseous abnormality. Electronically signed on Jul 23, 2018 4:52:12 PM LENS GRINDER APPRENTICE by: Darius TUCKER
== END 2018-07-23 16:49 | disposition home or self-care (01) ==
LOC: ED 12:30
DX: M25.551 Pain in right hip (principal); M54.5 Low back pain; W01.0XXA Fall on same level from slipping, tripping and stumbling without subsequent striking against object, initial encounter; Y93.01 Activity, walking, marching and hiking; Y92.008 Other place in unspecified non-institutional (private) residence as the place of occurrence of the external cause
CPT/HCPCS: 73502; 99285; A9270; S1016

== ENCOUNTER 2018-12-18 13:09 | Inpatient (IN) | payer MEDICARE, OTHER ==
--- NOTE | 2018-12-18 13:37 | ED Physician Documentation ---
General Adult - HISTORIAN Historian: patient - HPI Chief Complaint: General Adult Additional Information: Patient is a 73-year-old female that presents to the ER from [facility]. Patient states that she has not been feeling well for several days- she c/o diarrhea for a couple of days (family states that the nursing her treated her several days ago for constipation) and now has some diarrhea. long-term report stated that patient has been lethargic and confused at times. Patient states that she developed a cough yesterday-oxygen saturations in the low 80s; she is not typically on oxygen. Patient has a history of a stroke in June of 2018 with right side affected. She is at [facility] receiving physical therapy but has not been feeling well to participate the last couple of days. Patient did stop smoking prior to stroke. Onset: days ago (Several days ago) Timing: still present Severity: moderate Modifying Factors: Was treated for constipation - ROS CONST: weakness, chills EYES/ENT: none CVS/RESP: cough. denies: chest pain, shortness of breath GI/: abdominal pain (burning), nausea. denies: vomiting MS/SKIN/LYMPH: none NEURO/PSYCH: difficulty walking (due to fatigue) - PAST HX Past History: COPD, A-Fib, CHF, hypertension, other (THORACIC AORTIC ANEURYSM, NONRHEUMATIC AROTIC (VALVE) INSUFFICIENCY, HLD) Other History: CVA (RIGHT SIDED HEMIPLEGIA, MIXED RECEPTIVE-EXPRESSIVE LANGUAGE DISORDER, MARFANS SYNDROME), peptic ulcer, other (RA, LOW BACK PAIN, OSTEOPOROSIS, DEPRESSION, HX OF FALLING, ) Surgeries/Procedures: hysterectomy, other (APPY, THORACIC ANEURYSM X 2, JOINT REPLACEMENT IN HANDS, LUMBAR FUSION, ) Immunizations: influenza, pneumovax, UTD Allergies/Adverse Reactions: Allergies Allergy/AdvReac Type Severity Reaction Status Date / Time adhesive tape AdvReac Mild Itchy Skin Verified 12/18/18 13:43 Home Medications: Ambulatory Orders Medication Instructions Recorded Albuterol Sulfate [Proventil Hfa] 2 puff PO PRN PRN 05/28/18 Omeprazole (Nf) [Prilosec (Nf)] 40 mg BID 05/28/18 Sennosides/Docusate Sodium 1 each D 05/28/18 [Docusate Sodium-Senna Tablet] Cholecalciferol [Vitamin D-3] 1 each PO DAILY #0 01/24/19 Fluticasone Propionate [Flonase] 1 each NS DAILY #0 06/13/18 traMADol HCL [Ultram] 50 mg PO Q6H PRN tablet 06/13/18 Apixaban [Eliquis] 5 mg PO BID 07/23/18 Diltiazem HCl [Diltiazem 24Hr Cd] 240 mg PO DAILY 07/23/18 Furosemide [Lasix] 40 mg PO DAILY 07/23/18 Acetaminophen [Pain Relief] 2 tab PO Q6 PRN 12/18/18 Aspirin [Tasiha] 1 tab PO DAILY 12/18/18 Atorvastatin Calcium [Lipitor] 40 mg PO DAILY 12/18/18 Baclofen 0.5 tab PO Q6 12/18/18 Citalopram Hydrobromide [Celexa] 1 tab PO DAILY 12/18/18 Metoprolol Tartrate [Lopressor] 75 mg PO BID 12/18/18 - SOCIAL HX Smoking History: quit less than 1 year Alcohol Use: none Drug Use: none - FAMILY HX Family History: No - VITAL SIGNS Vital Signs: Vital Signs Temp Pulse Resp BP Pulse Ox 129/68 07/23/18 16:37 - REVIEWED ASSESSMENTS Nursing Assessment Reviewed: Yes Vitals Reviewed: Yes Progress - Progress Progress: 16:00 Patient has been resting comfortably in bed- sleeping most of the time- arouses easily. 17:10 patient was incontinent of urine- was not able to get UA- assisted with complete bed change- patient did well- noticed a wet cough- rechecked lung sounds- noticed some rales in the left lower lobe Spoke with Dr. Torrez- he has accepted patient for pneumonia and CHF ED Results Lab/Radiology - Radiology Radiology Impressions: Exam: AP chest. History: Weakness. The examination is compared to study dated June 03, 2018. Lung broderick are well aerated. Perihilar infiltrates are noted. Left basilar infiltrate with pleural effusion is seen. Heart size is stable with atherosclerotic plaques seen in the aorta. Sternotomy wires indicate previous thoracotomy. Impression: Perihilar infiltrates. Left lower lobe infiltrate with pleural effusion. Exam: CT abdomen and pelvis with contrast. History: Abdominal pain. Diarrhea. Elevated liver enzymes. Axial images through the abdomen and pelvis after IV infusion of 90 cc Omnipaque [id number] is submitted along with sagittal and coronal reformatted images. The examination is compared to a study dated May 28, 2018. Bilateral pleural effusions are noted. Patchy lower lobe infiltrates are noted bilaterally. No free intraperitoneal air is identified. Increase in distention of the gallbladder is noted since the previous study with redemonstration of gallstones. Diffuse fatty replacement of the normal liver parenchyma is noted. No space-occupying lesion in the liver is noted. The spleen and pancreas appear normal in attenuation and enhancement. The adrenal glands are normal configuration. No periaortic lymphadenopathy is identified. Atherosclerotic plaque throughout the abdominal aorta is noted. Lobulated configuration to the kidneys is not changed in the interval. No hydronephrosis or hydroureter is identified. The urinary bladder is distended without intrinsic filling defect. The uterus is not visualized. Small amount of free cul-de-sac fluid is identified. No adnexal masses are seen. The small bowel is of normal caliber. Air and stool seen throughout the large intestine. No inflammatory changes in the mesentery is noted. There is redemonstration of fusion of the lumbar spine. No other bony abnormalities are identified. Impression: Bilateral pleural effusions with patchy lower lobe infiltrates. Increase in distention diluted to the gallbladder with redemonstration of gallstones. Diffuse fatty replacement of the normal liver parenchyma. Lobulated configuration to the kidneys is not changed in the interval. No hydronephrosis or hydroureter is noted. A small amount of free cul-de-sac fluid is identified. No inflammatory changes in the mesentery is noted. Nonspecific bowel gas pattern. Electronically signed on Dec 18, 2018 3:42:04 PM CDT by: Hitesh Oswald Exam: Right upper quadrant ultrasound. History: Right upper quadrant pain. Real-time grayscale imaging of the right upper quadrant is performed. The gallbladder is distended. A soft tissue density within the gallbladder is identified measuring 4 x 1.6 x 2.1 cm in size. The common bile duct measures 2.9 mm in greatest diameter. The liver measures 16.2 cm in length and is homogeneous in echotexture. The right kidney is of normal echotexture without hydronephrosis. No ascites or other abdominal mass is identified. Impression: Lobulated mass noted within the gallbladder. No other abnormality in the right upper quadrant is noted. Electronically signed on Dec 18, 2018 4:57:45 PM CDT by: Hitesh Oswald - Orders Orders: ED Orders Category Date Time Status Continuous EKG monitoring Q30M Care 12/18/18 13:30 Active Continuous Pulse Oximetry Q30M Care 12/18/18 13:[address] IV Lock 1T Care 12/18/18 13:30 Active CHEST 1VIEW [RAD] Stat Exams 12/18/18 Ordered BNP [NTBNP] Stat Lab 12/18/18 Ordered CBC/PLATELET/DIFF Routine Lab 12/18/18 13:30 Ordered CKMB Stat Lab 12/18/18 Ordered CMP Routine Lab 12/18/18 13:30 Ordered CREATINE KINASE Routine Lab 12/18/18 13:30 Ordered TROPONIN I Stat Lab 12/18/18 Ordered URINALYSIS Routine Lab 12/18/18 Ordered Oxygen Daily Oxygen 12/18/18 13:30 Ordered EKG WITH COMPARISON Stat Ther 12/18/18 13:30 Ordered General Adult Physical Exam - PHYSICAL EXAM GENERAL APPEARANCE: mild distress EENT: MARY, pale conjunctivae, dry mucous membranes NECK: normal inspection, supple RESPIRATORY: breath sounds normal CVS: equal pulses, irregularly irregular rhy, other (generalized swelling to the right foot- no edema noted to ankle/legs) ABDOMEN: normal bowel sounds, no distension SKIN: warm/dry, pallor EXTREMITIES: non-tender NEURO: motor nml, sensation nml, other (pt is alert and oriented- appears very fatigued) Discharge Clincal Impression: CHF (congestive heart failure), Pneumonia, Elevated LFTs, Atrial fibrillation, Hyperglycemia Referrals: Pedro Torrez MD [Primary Care Provider] - 2 Days Condition: Stable Disposition: 09 ADMITTED INPATIENT Decision to Admit: [id number] Date of Decison to Admit: 12/18/18 (Dr. Torrez accepted) Decision Time: 17:20
[2018-12-18 13:38] LABS: BASOPHILS % 0.3 % (0.0-1.5); NEUTROPHILS # 6.9 # k/uL (1.4-7.7)
[2018-12-18] MEDS ORDERED: 0.9 % SODIUM CHLORIDE 500 ML IV ONE (13:48)
[2018-12-18 13:57] LABS: eGFR (Non-African) > 60
[2018-12-18] MEDS ORDERED: cefTRIAXone SODIUM 1 GM in 0.9 % SODIUM CHLORIDE 50 ML IV ONE (15:22)
[2018-12-18] MEDS ORDERED: AZITHROMYCIN 500 MG in 0.9 % SODIUM CHLORIDE 250 ML IV ONE (16:30)
[2018-12-18] MEDS ORDERED: FUROSEMIDE 40 MG/4 ML VIAL IVP ONE (16:43)
[2018-12-18] MEDS ORDERED: LEVALBUTEROL NEB 1.25 MG/3 ML VIAL.NEB IH PRN (17:27)
[2018-12-18] MEDS ORDERED: ACETAMINOPHEN 500 MG TABLET PO PRN (17:33)
[2018-12-18] MEDS ORDERED: BACLOFEN 10 MG TABLET PO PRN (17:33)
[2018-12-18] MEDS ORDERED: 0.9 % SODIUM CHLORIDE 1,000 ML IV ONE (17:58)
[2018-12-18 18:11] VITALS: BMI 19.7
--- NOTE | 2018-12-18 18:50 | Diagnostic Imaging Report ---
JR WILKERSON- DAVIDA [facility] [address] [facility] [address] [place] [address]. [id number] Report Submission Date: Dec 18, 2018 4:57:45 PM CDT Patient Study Name: JESSICA LINN Date: Dec 18, 2018 4:07:46 PM CDT Modality Type: US\SR Gender: F Description: : 49 Institution: [facility] Physician: REILLY WILKERSON ED Exam: Right upper quadrant ultrasound. History: Right upper quadrant pain. Real-time grayscale imaging of the right upper quadrant is performed. The gallbladder is distended. A soft tissue density within the gallbladder is identified measuring 4 x 1.6 x 2.1 cm in size. The common bile duct measures 2.9 mm in greatest diameter. The liver measures 16.2 cm in length and is homogeneous in echotexture. The right kidney is of normal echotexture without hydronephrosis. No ascites or other abdominal mass is identified. Impression: Lobulated mass noted within the gallbladder. No other abnormality in the right upper quadrant is noted. Electronically signed on Dec 18, 2018 4:57:45 PM CDT by: Hietsh TUCKER
[2018-12-18] MEDS ORDERED: APIXABAN 5 MG TABLET PO ONE (19:20)
[2018-12-18] MEDS ORDERED: METOPROLOL TARTRATE 25 MG TABLET ONE (19:21)
[2018-12-18] MEDS: 0.9 % SODIUM CHLORIDE 1,000 ML IV SCH (20:06)
[2018-12-18] MEDS: APIXABAN 5 MG TABLET PO SCH (20:14)
[2018-12-18] MEDS: METOPROLOL TARTRATE 50 MG TABLET PO SCH (20:22)
[2018-12-18] MEDS: BUDESONIDE 0.5MG/2ML AMPUL.NEB NEB SCH (20:49)
[2018-12-18] MEDS: IPRATROPIUM/ALBUTEROL SULFATE 3 ML AMPUL.NEB NEB SCH (20:50)
[2018-12-19] MEDS: traMADol HCL 50 MG TABLET PO PRN (02:18)
[2018-12-19 03:42] LABS: APPEARANCE,URINE CLEAR (CLEAR); COLOR,URINE YELLOW (YELLOW); OCCULT BLOOD,URINE TRACE-INTACT (NEGATIVE); UROBILINOGEN URINE 0.2 Eu (0.2-1.0)
[2018-12-19 05:43] LABS: BASOPHILS % 0.2 % (0.0-1.5); NEUTROPHILS # 6.2 # k/uL (1.4-7.7)
[2018-12-19] MEDS: IPRATROPIUM/ALBUTEROL SULFATE 3 ML AMPUL.NEB NEB SCH ×6 (05:45→22:28)
[2018-12-19] MEDS: PANTOPRAZOLE SODIUM 40 MG TABLET.DR PO SCH (05:47)
[2018-12-19 05:52] LABS: eGFR (Non-African) > 60
--- NOTE | 2018-12-19 07:34 | Diagnostic Imaging Report ---
REILLY WILKERSON ED [facility] [address] [facility] [address] [place], [place]. [address] Report Submission Date: Dec 18, 2018 2:15:12 PM CDT Patient Study Name: JESSICA LINN Date: Dec 18, 2018 1:39:16 PM CDT Modality Type: DX Gender: F Description: CHEST 1VIEW : 49 Institution: [facility] Physician: REILLY WILKERSON ED Exam: AP chest. History: Weakness. The examination is compared to study dated June 03, 2018. Lung broderick are well aerated. Perihilar infiltrates are noted. Left basilar infiltrate with pleural effusion is seen. Heart size is stable with atherosclerotic plaques seen in the aorta. Sternotomy wires indicate previous thoracotomy. Impression: Perihilar infiltrates. Left lower lobe infiltrate with pleural effusion. Electronically signed on Dec 18, 2018 2:15:12 PM CDT by: Hitesh TUCKER
--- NOTE | 2018-12-19 07:41 | Diagnostic Imaging Report ---
REILLY WILKERSON ED [facility] [address] [facility] [address] [place], [place]. [address] Report Submission Date: Dec 18, 2018 3:42:04 PM CDT Patient Study Name: JESSICA LINN Date: Dec 18, 2018 2:49:38 PM CDT Modality Type: CT\SR Gender: F Description: CT ABD PELVIS W/ CON : 49 Institution: [facility] Physician: REILLY WILKERSON ED Exam: CT abdomen and pelvis with contrast. History: Abdominal pain. Diarrhea. Elevated liver enzymes. Axial images through the abdomen and pelvis after IV infusion of 90 cc Omnipaque 350 is submitted along with sagittal and coronal reformatted images. The examination is compared to a study dated May 28, 2018. Bilateral pleural effusions are noted. Patchy lower lobe infiltrates are noted bilaterally. No free intraperitoneal air is identified. Increase in distention of the gallbladder is noted since the previous study with redemonstration of gallstones. Diffuse fatty replacement of the normal liver parenchyma is noted. No space-occupying lesion in the liver is noted. The spleen and pancreas appear normal in attenuation and enhancement. The adrenal glands are normal configuration. No periaortic lymphadenopathy is identified. Atherosclerotic plaque throughout the abdominal aorta is noted. Lobulated configuration to the kidneys is not changed in the interval. No hydronephrosis or hydroureter is identified. The urinary bladder is distended without intrinsic filling defect. The uterus is not visualized. Small amount of free cul-de-sac fluid is identified. No adnexal masses are seen. The small bowel is of normal caliber. Air and stool seen throughout the large intestine. No inflammatory changes in the mesentery is noted. There is redemonstration of fusion of the lumbar spine. No other bony abnormalities are identified. Impression: Bilateral pleural effusions with patchy lower lobe infiltrates. Increase in distention diluted to the gallbladder with redemonstration of gallstones. Diffuse fatty replacement of the normal liver parenchyma. Lobulated configuration to the kidneys is not changed in the interval. No hydronephrosis or hydroureter is noted. A small amount of free cul-de-sac fluid is identified. No inflammatory changes in the mesentery is noted. Nonspecific bowel gas pattern. Electronically signed on Dec 18, 2018 3:42:04 PM CDT by: Hitesh TUCKER
--- NOTE | 2018-12-19 08:26 | History and Physical Report ---
History of Present Illnes - History of Present Illness Reason for Visit: dyspnea History of Present Illness: Patient is a 73-year-old white female with a history of chronic atrial fibrillation on anticoagulation therapy, congestive heart failure, hypertension, COPD, rheumatoid and osteoarthritis. Patient is currently residing at [facility]. Over the last 2 to 3 days prior to admission patient become more weak and lethargic. Patient is not eating and drinking well. Patient ap peared to be pale. Patient did developed a cough that did sound productive. Patient started having some problems with maintaining and SaO2 greater than 92%. Patient was subsequently brought to the ED for evaluation. Patient was found to have some perihilar infiltrates bilaterally. Patient also had a left Basler infiltrate with small pleural effusion. Patient was noted to be anemic with the hemoglobin of 8.0. Patient was subsequently admitted to the hospital for further care and evaluation. - Past Medical History Cardiac: AFIB, CHF, HTN Pulmonary: COPD, Pneumonia Gastrointestinal: GERD Hepatobiliary: Cholelithiasis Musculoskeletal: Osteoarthritis Rheumatologic: Rheumatoid arthritis ENT: Sinusitis Renal/: UTI Endocrine: Osteoporosis - Past Surgical History Past Surgical History: Appendectomy, Hysterectomy, Other (Thoracic aneurysm repair x 2), Other (ankle fusion, joint replacement in hands, lumbar fusion) - Past Family History Mother Family History: Cancer (uterine cancer), Father Family History: DM, - Past Social History Smoke: 1 pack per day Alcohol: None Drugs: None Lives: With Family Domestic Violence: Negative - Health Maintenance Health Maintenance: Influenza Vaccine, Pneumococcal Vaccine Pneumonia Vaccine: Yes Resuscitation Status: Resusciation Status Resuscitation Status Do Not Resuscitate Review of Systems - Review of Systems Constitutional: negative: Fever, Chills Eyes: negative: pain, vision change ENT: negative: Ear Pain, Ear Discharge, Nose Pain, Nose Discharge, Nose Congestion, Mouth Pain, Throat Swelling Respiratory: Cough, Sputum. negative: Dry, Shortness of Breath, Hemoptysis, Pleuritic Pain, Wheezing Cardiovascular: negative: Chest Pain, Palpitations, Orthopnea, Edema, Light Headedness Gastrointestinal: Diarrhea, Constipation. negative: Nausea, Vomiting, Abdominal Pain, Melena, Hematochezia Genitourinary: negative: Dysuria, Frequency, Incontinence, Hematuria, Retention Musculoskeletal: negative: Neck Pain, Arm Pain Skin: negative: Rash Neurological: Weakness, Numbness (t baseline), Incoordination. negative: Change in Speech - Medications/Allergies Allergies/Adverse Reactions: Allergies Allergy/AdvReac Type Severity Reaction Status Date / Time adhesive tape AdvReac Mild Itchy Skin Verified 12/18/18 13:43 Home Medications: Home Medications Acetaminophen [Pain Relief] 2 tab PO Q6 PRN 12/18/18 Aspirin [Tashia] 1 tab PO DAILY 12/18/18 Atorvastatin Calcium [Lipitor] 40 mg PO DAILY 12/18/18 Baclofen 0.5 tab PO Q6 12/18/18 Citalopram Hydrobromide [Celexa] 1 tab PO DAILY 12/18/18 Diltiazem HCl [Diltiazem 24Hr ER] 360 mg PO DAILY 12/23/18 Current Inpatient Medications: Current Inpatient Medications Acetaminophen (Tylenol Extra Strength) mg PO Q6 PRN PRN Reason: pain Albuterol/Ipratropium (Duoneb) 3 ml NEB Q4 [facility] Last Admin: 12/19/18 05:47 Dose: 3 ml Apixaban (Eliquis) 5 mg PO BID [facility] Last Admin: 12/18/18 20:14 Dose: 5 mg Aspirin (Tashia) mg PO DAILY [facility] Atorvastatin Calcium (Lipitor) 40 mg PO DAILY [facility] Baclofen (Lioresal) mg PO Q6 PRN PRN Reason: MUSCLE SPASM Budesonide (Pulmicort) 0.5 mg NEB BID [facility] Last Admin: 12/18/18 20:49 Dose: 0.5 mg Cholecalciferol (Vitamin D-3) unit PO DAILY [facility] Citalopram Hydrobromide (Celexa) mg PO DAILY [facility] Diltiazem HCl (Cardizem Cd) 240 mg PO DAILY [facility] Fluticasone Propionate (Flonase Nasal [place]) spray IEN DAILY [facility] Furosemide (Lasix) 40 mg IVP QDAY [facility] Azithromycin 500 mg/ Sodium (Chloride) 250 mls @ 250 mls/hr IV Q24H [facility] Stop: 12/23/18 18:59 Ceftriaxone Sodium 1 gm/ (Sodium Chloride) 50 mls @ 100 mls/hr IV DAILY [facility] Sodium Chloride (Normal Saline) 1,000 mls @ 60 mls/hr IV Q10H [facility] Last Admin: 12/18/18 20:06 Dose: 60 mls/hr Levalbuterol HCl (Xopenex Neb) 1.25 mg IH Q4H PRN PRN Reason: SHORTNESS OF BREATH Metoprolol Tartrate (Lopressor) 75 mg PO BID [facility] Last Admin: 12/18/18 20:22 Dose: 75 mg Miscellaneous (Chem Sticks) 1 each MC CHEMQID [facility] Last Admin: 12/19/18 06:01 Dose: 1 each Pantoprazole Sodium (Protonix) 40 mg PO 0700 [facility] Last Admin: 12/19/18 05:47 Dose: 40 mg Tramadol HCl (Ultram) 50 mg PO Q6H PRN PRN Reason: PAIN Last Admin: 12/19/18 02:18 Dose: 50 mg Exam - Exam Vital Signs: Vital Signs (72 hours) 12/18/18 12/18/18 12/18/18 13:09 13:30 14:00 Temperature 97.4 F L Pulse Rate 73 74 Pulse Rate [ Left] Pulse Rate [ 89 Right Pulse ox] Pulse Rate [ Right] Respiratory 16 Rate Blood Pressure [Left Arm] Blood Pressure 135/65 [Right Arm] O2 Sat by Pulse 97 91 L 100 Oximetry 12/18/18 12/18/18 12/18/18 14:30 15:00 15:30 Temperature Pulse Rate 74 78 78 Pulse Rate [ Left] Pulse Rate [ Right Pulse ox] Pulse Rate [ Right] Respiratory Rate Blood Pressure [Left Arm] Blood Pressure [Right Arm] O2 Sat by Pulse 100 100 100 Oximetry 12/18/18 12/18/18 12/18/18 16:00 16:30 17:00 Temperature Pulse Rate 83 79 77 Pulse Rate [ Left] Pulse Rate [ Right Pulse ox] Pulse Rate [ Right] Respiratory Rate Blood Pressure [Left Arm] Blood Pressure [Right Arm] O2 Sat by Pulse 100 100 100 Oximetry 12/18/18 12/18/18 12/18/18 17:27 17:30 17:40 Temperature 97.4 F L Pulse Rate 88 89 Pulse Rate [ Left] Pulse Rate [ 89 Right Pulse ox] Pulse Rate [ Right] Respiratory 16 Rate Blood Pressure 125/49 [Left Arm] Blood Pressure [Right Arm] O2 Sat by Pulse 100 100 100 Oximetry 12/18/18 12/18/18 12/18/18 17:52 18:00 18:06 Temperature 97.5 F L 97.5 F L 97.5 F L Pulse Rate 73 Pulse Rate [ Left] Pulse Rate [ 63 63 63 Right Pulse ox] Pulse Rate [ Right] Respiratory 16 18 18 Rate Blood Pressure [Left Arm] Blood Pressure 121/77 121/77 121/77 [Right Arm] O2 Sat by Pulse 98 98 82 L Oximetry 12/18/18 12/18/18 12/18/18 18:30 19:00 20:00 Temperature Pulse Rate 67 74 69 Pulse Rate [ Left] Pulse Rate [ Right Pulse ox] Pulse Rate [ Right] Respiratory Rate Blood Pressure [Left Arm] Blood Pressure [Right Arm] O2 Sat by Pulse 98 100 98 Oximetry 12/18/18 12/19/18 12/19/18 22:00 00:00 02:00 Temperature 97.6 F 97.5 F L Pulse Rate 77 78 87 Pulse Rate [ 97 H Left] Pulse Rate [ Right Pulse ox] Pulse Rate [ 107 H Right] Respiratory 16 20 Rate Blood Pressure 118/47 [Left Arm] Blood Pressure 136/58 [Right Arm] O2 Sat by Pulse 100 99 99 Oximetry 12/19/18 12/19/18 12/19/18 04:00 05:32 05:33 Temperature Pulse Rate 100 H 97 H 97 H Pulse Rate [ Left] Pulse Rate [ Right Pulse ox] Pulse Rate [ Right] Respiratory Rate Blood Pressure [Left Arm] Blood Pressure [Right Arm] O2 Sat by Pulse 94 Oximetry 12/19/18 12/19/18 05:34 05:35 Temperature 99.3 F Pulse Rate Pulse Rate [ Left] Pulse Rate [ Right Pulse ox] Pulse Rate [ 119 H Right] Respiratory 20 20 Rate Blood Pressure [Left Arm] Blood Pressure 145/75 [Right Arm] O2 Sat by Pulse 99 98 Oximetry General: Alert, Oriented to Person, Oriented to Place, Oriented to Time, Cooperative HEENT: Atraumatic, PERRLA, EOMI, Mouth Mucous membr. moist/[place], Nose Mucous membr. moist/[place], Dentition Normal. No: Pharyngeal Erythema Neck: Normal Range of Motion Carotids: WNL Lungs: Clear to auscultation, Normal air movement, Speaks full Sentences Cardiovascular: Normal S1, Normal S2, No murmurs, Irregularly Irregular Abdomen: Normal bowel sounds, Soft, No tenderness, No hepatospenomegaly, No masses Integumentary: Normal, [place], Warm, Dry Extremities: No clubbing, No cyanosis, No edema, Normal pulses, No tenderness/swelling Neurological: Normal gait, Normal speech, Strength Equal Bilat, Normal tone, Sensation intact, Cranial nerves 3-12 NL, Reflexes 2+ Psych/Mental Status: Mental status NL, Mood NL, Appropriate Affect, Intact Judgment - Laboratory Results Laboratory Results: Laboratory Results 12/18/18 12/18/18 12/18/18 13:30 13:30 13:30 WBC 8.30 RBC 2.94 L Hgb 8.0 L Hct 24.5 L MCV 83.0 MCH 27.1 L MCHC 32.5 RDW 16.0 H Plt Count 147 Neut % (Auto) 82.6 H Lymph % (Auto) 7.8 L [place] % (Auto) 7.4 Eos % (Auto) 1.9 Baso % (Auto) 0.3 Neut # (Auto) 6.9 Lymph # (Auto) 0.7 [place] # (Auto) 0.6 Eos # (Auto) 0.2 Baso # (Auto) 0.0 Sodium 138 Potassium 4.0 Chloride 99 Carbon Dioxide 25 Anion Gap 18.0 H BUN 36 H Creatinine 1.23 H Estimated Creat Clear 51 Est GFR ( Amer) > 60 Est GFR (Non-Af Amer) > 60 Glucose 141 H Calcium 8.3 L Total Bilirubin 1.4 H AST 256 H ALT 299 H Alkaline Phosphatase 173 H Creatine Kinase 79 CK-MB (CK-2) Troponin I NT-Pro-B Natriuret Pep Total Protein 7.0 Albumin 3.9 Lipase 109 Urine Color Urine Appearance Urine pH Ur Specific [place] Urine Protein Urine Ketones Urine Occult Blood Urine Nitrite Urine Bilirubin Urine Urobilinogen Ur Leukocyte Esterase Urine Glucose Stool Occult Blood 12/18/18 12/18/18 12/19/18 13:32 17:35 05:39 WBC 7.60 RBC 2.48 L Hgb 6.6 L* Hct 20.7 L MCV 84.0 MCH 26.7 L MCHC 31.9 RDW 16.1 H Plt Count 136 Neut % (Auto) 81.7 H Lymph % (Auto) 7.2 L [place] % (Auto) 8.6 Eos % (Auto) 2.3 Baso % (Auto) 0.2 Neut # (Auto) 6.2 Lymph # (Auto) 0.6 [place] # (Auto) 0.7 Eos # (Auto) 0.2 Baso # (Auto) 0.0 Sodium Potassium Chloride Carbon Dioxide Anion Gap BUN Creatinine Estimated Creat Clear Est GFR ( Amer) Est GFR (Non-Af Amer) Glucose Calcium Total Bilirubin AST ALT Alkaline Phosphatase Creatine Kinase CK-MB (CK-2) 2.3 Troponin I 0.020 NT-Pro-B Natriuret Pep 67667.0 H Total Protein Albumin Lipase Urine Color Yellow Urine Appearance Clear Urine pH 6.0 Ur Specific [place] 1.015 Urine Protein Negative Urine Ketones Negative Urine Occult Blood Trace-intact H Urine Nitrite Negative Urine Bilirubin Negative Urine Urobilinogen 0.2 Ur Leukocyte Esterase Negative Urine Glucose Negative Stool Occult Blood Negative 12/19/18 05:39 WBC RBC Hgb Hct MCV MCH MCHC RDW Plt Count Neut % (Auto) Lymph % (Auto) [place] % (Auto) Eos % (Auto) Baso % (Auto) Neut # (Auto) Lymph # (Auto) [place] # (Auto) Eos # (Auto) Baso # (Auto) Sodium 138 Potassium 3.6 Chloride 103 Carbon Dioxide 24 Anion Gap 14.6 H BUN 28 H Creatinine 1.06 H Estimated Creat Clear 51 Est GFR ( Amer) > 60 Est GFR (Non-Af Amer) > 60 Glucose 114 H Calcium 7.6 L Total Bilirubin 0.8 AST 172 H ALT 242 H Alkaline Phosphatase 150 H Creatine Kinase CK-MB (CK-2) Troponin I NT-Pro-B Natriuret Pep Total Protein 6.1 L Albumin 3.3 L Lipase Urine Color Urine Appearance Urine pH Ur Specific [place] Urine Protein Urine Ketones Urine Occult Blood Urine Nitrite Urine Bilirubin Urine Urobilinogen Ur Leukocyte Esterase Urine Glucose Stool Occult Blood Assessment/Plan - Assessment/Plan (1) Cerebral vascular disease Status: Chronic Assessment: Stable, no no evidence for a TIA or CVA. (2) Rheumatoid arteritis Status: Chronic Assessment: stable (3) Atrial fibrillation Status: Chronic Assessment: . I am not sure whether this is related to the patient anemia or her atrial fibrillation. Patient is on anticoagulation therapy. (4) Elevated LFTs Status: Acute Assessment: Will follow and get hepatitis panel (5) Pneumonia Status: Acute Qualifiers: Pneumonia type: due to unspecified organism Laterality: bilateral Assessment: Patient will be started on high flow nebulization treatments, IV antibiotic therapy. (6) Essential hypertension Status: Chronic Assessment: Continue home medications. (7) COPD (chronic obstructive pulmonary disease) Status: Chronic Qualifiers: COPD type: COPD with acute exacerbation Qualified Code(s): J44.1 - Chronic obstructive pulmonary disease with (acute) exacerbation Assessment: Continue home medications. VTE Assessment - RISK FACTOR SCORE VTE RISK FACTOR SCORES: AGE OVER 60 YEARS, ANTICIPATED BED CONFINEMENT OR IMMOBILIZATION > 24 HOURS
[2018-12-19] MEDS ORDERED: ACETAMINOPHEN 325 MG TABLET PO ONE (08:31)
[2018-12-19] MEDS ORDERED: FUROSEMIDE 40 MG/4 ML VIAL IVP ONE (08:32)
[2018-12-19] MEDS ORDERED: METOPROLOL TARTRATE 25 MG TABLET ONE ×2 (08:51→21:41)
[2018-12-19] MEDS ORDERED: diphenhydrAMINE HCL 25 MG TABLET PO ONE (08:52)
[2018-12-19] MEDS: FUROSEMIDE 40 MG/4 ML VIAL IVP SCH (08:57)
[2018-12-19] MEDS: METOPROLOL TARTRATE 50 MG TABLET PO SCH ×2 (09:00→22:32)
[2018-12-19] MEDS ORDERED: APIXABAN 5 MG TABLET PO ONE (09:01)
[2018-12-19] MEDS: APIXABAN 5 MG TABLET PO SCH (09:02)
[2018-12-19] MEDS: BUDESONIDE 0.5MG/2ML AMPUL.NEB NEB SCH ×2 (09:10→22:33)
[2018-12-19] MEDS ORDERED: 0.9 % SODIUM CHLORIDE 500 ML IV ONE (09:43)
[2018-12-19] MEDS ORDERED: ONDANSETRON HCL/PF 4 MG/ 2ML VIAL IVP PRN (10:50)
[2018-12-19] MEDS ORDERED: 0.9 % SODIUM CHLORIDE 1,000 ML IV ONE (20:28)
[2018-12-19] MEDS: 0.9 % SODIUM CHLORIDE 1,000 ML IV SCH ×2 (20:45→20:47)
[2018-12-19] MEDS ORDERED: cefTRIAXone SODIUM 1 GM INJ ONE (21:42)
[2018-12-19] MEDS ORDERED: AZITHROMYCIN 500 MG VIAL IV ONE (21:42)
[2018-12-19] MEDS ORDERED: 0.9 % SODIUM CHLORIDE 0 ML IV ONE (21:48)
[2018-12-19] MEDS ORDERED: 0.9 % SODIUM CHLORIDE 250 ML IV ONE (21:48)
[2018-12-19] MEDS ORDERED: 0.9 % SODIUM CHLORIDE 50 ML IV ONE (21:51)
[2018-12-19] MEDS: cefTRIAXone SODIUM 1 GM in 0.9 % SODIUM CHLORIDE 50 ML IV SCH (22:37)
[2018-12-19] MEDS: ATORVASTATIN CALCIUM 20 MG TABLET PO SCH (22:38)
[2018-12-19] MEDS ORDERED: FUROSEMIDE 20 MG/2 ML VIAL IVP ONE (22:43)
[2018-12-20] MEDS: AZITHROMYCIN 500 MG in 0.9 % SODIUM CHLORIDE 250 ML IV SCH ×3 (00:06→17:48)
[2018-12-20] MEDS: 0.9 % SODIUM CHLORIDE 1,000 ML IV SCH ×2 (00:36→06:01)
[2018-12-20] MEDS: IPRATROPIUM/ALBUTEROL SULFATE 3 ML AMPUL.NEB NEB SCH ×6 (00:38→19:45)
[2018-12-20 06:01] LABS: BASOPHILS % 0.4 % (0.0-1.5)
[2018-12-20] MEDS: traMADol HCL 50 MG TABLET PO PRN ×2 (06:03→20:34)
[2018-12-20] MEDS: PANTOPRAZOLE SODIUM 40 MG TABLET.DR PO SCH (06:03)
[2018-12-20 06:18] LABS: eGFR (Non-African) > 60
--- NOTE | 2018-12-20 07:52 | Inpatient Progress Note ---
Subjective - Required Recertification Statement I anticipate X number of days because-include discharge plan: 1 day - Review of Systems General: Fatigue (improved). Denies: Chills Pulmonary: Cough. Denies: Dyspnea, Pleuritic Chest Pain Cardiovascular: Denies: Chest Pain, Palpitations, Orthopnea, Edema Gastrointestinal: Denies: Nausea (resolved), Vomiting, Abdominal Pain, Diarrhea (resolved), Constipation Objective - Exam Vitals and I&O: Vital Signs Temp 98.8 F 12/20/18 05:23 Pulse 107 H 12/20/18 06:00 Resp 18 12/20/18 05:23 BP 146/79 12/20/18 05:23 Pulse Ox 93 12/20/18 06:00 Intake & Output 12/19/18 12/19/18 12/20/18 11:59 23:59 11:59 Intake Total 840 975 250 Output Total 600 Balance 840 975 -350 Intake: IV 720 375 250 Left Antecubital 720 Left wrist 375 250 Oral 120 600 Output: Urine 600 Other: Voiding Method Bedside Commode Bedside Commode Bedside Commode # Voids 2 2 # Bowel Movements 0 1 0 General: Alert, Oriented to Person, Oriented to Place Neck: Supple, No JVD, No thyromegaly Lungs: Normal air movement, Speaks full Sentences, Rales (r base). No: Wheezes, Rhonchi Cardiovascular: Normal S1, Normal S2, No murmurs, Irregularly Irregular (A fib on monitor) Abdomen: Normal bowel sounds, Soft, No tenderness, No hepatospenomegaly, No masses Extremities: No: No clubbing, No cyanosis, No edema Neurological: Normal speech, Other (decrease motor strength in the RLE (previous CVA)) - Results Results: Laboratory Results WBC 8.90 K/ul (4.00-12.00) 12/20/18 05:50 RBC 3.37 M/ul (3.90-5.20) L 12/20/18 05:50 Hgb 9.5 g/dL (11.5-16.0) L 12/20/18 05:50 Hct 29.0 % (34.5-46.5) L 12/20/18 05:50 MCV 86.0 fl (80.0-100.0) 12/20/18 05:50 MCH 28.2 pg (28.0-34.0) 12/20/18 05:50 MCHC 32.8 g/dL (30.0-36.0) 12/20/18 05:50 RDW 15.6 % (11.3-14.3) H 12/20/18 05:50 Plt Count 131 K/mm3 (130-400) 12/20/18 05:50 Neut % (Auto) 78.7 % (39.0-79.0) 12/20/18 05:50 Lymph % (Auto) 10.6 % (16.0-50.0) L 12/20/18 05:50 [place] % (Auto) 8.1 % (0.0-11.0) 12/20/18 05:50 Eos % (Auto) 2.2 % (0.0-6.8) 12/20/18 05:50 Baso % (Auto) 0.4 % (0.0-1.5) 12/20/18 05:50 Neut # (Auto) 7.0 # k/uL (1.4-7.7) 12/20/18 05:50 Lymph # (Auto) 0.9 # k/uL (0.6-4.0) 12/20/18 05:50 [place] # (Auto) 0.7 # k/uL (0.0-0.9) 12/20/18 05:50 Eos # (Auto) 0.2 # k/uL (0.0-0.6) 12/20/18 05:50 Baso # (Auto) 0.0 # k/uL (0.0-0.5) 12/20/18 05:50 Sodium 136 mmol/L (137-145) L 12/20/18 05:50 Potassium 3.5 mmol/L (3.5-5.1) 12/20/18 05:50 Chloride 102 mmol/L (98-107) 12/20/18 05:50 Carbon Dioxide 23 mmol/L (22-30) 12/20/18 05:50 Anion Gap 14.5 mmol/L (3-11) H 12/20/18 05:50 BUN 25 mg/dL (7-17) H 12/20/18 05:50 Creatinine 1.15 mg/dL (0.52-1.04) H 12/20/18 05:50 Estimated Creat Clear 47 12/20/18 05:50 Est GFR ( Amer) > 60 (60-) 12/20/18 05:50 Est GFR (Non-Af Amer) > 60 (60-) 12/20/18 05:50 Glucose 166 mg/dL (74-106) H 12/20/18 05:50 Calcium 8.1 mg/dL (8.4-10.2) L 12/20/18 05:50 Total Bilirubin 0.9 mg/dL (0.2-1.3) 12/20/18 05:50 AST 135 U/L (15-46) H 12/20/18 05:50 ALT 239 U/L (13-69) H 12/20/18 05:50 Alkaline Phosphatase 189 U/L (38-126) H 12/20/18 05:50 Creatine Kinase 79 U/L (30-135) 12/18/18 13:30 CK-MB (CK-2) 2.3 ng/mL (0.0-5.6) 12/18/18 13:32 Troponin I 0.020 ng/mL (0.012-0.034) 12/18/18 13:32 NT-Pro-B Natriuret Pep 51786.0 pg/mL (11.1-125.0) H 12/20/18 05:50 Total Protein 6.3 g/dL (6.3-8.2) 12/20/18 05:50 Albumin 3.4 g/dL (3.5-5.0) L 12/20/18 05:50 Lipase 109 U/L (23-300) 12/18/18 13:30 Urine Color Yellow (YELLOW) 12/18/18 17:35 Urine Appearance Clear (CLEAR) 12/18/18 17:35 Urine pH 6.0 (5.0 - 8.0) 12/18/18 17:35 Ur Specific [place] 1.015 (1.010-1.030) 12/18/18 17:35 Urine Protein Negative mg/dL (NEGATIVE) 12/18/18 17:35 Urine Ketones Negative mg/dL (NEGATIVE) 12/18/18 17:35 Urine Occult Blood Trace-intact (NEGATIVE) H 12/18/18 17:35 Urine Nitrite Negative (NEGATIVE) 12/18/18 17:35 Urine Bilirubin Negative (NEGATIVE) 12/18/18 17:35 Urine Urobilinogen 0.2 Eu (0.2-1.0) 12/18/18 17:35 Ur Leukocyte Esterase Negative (NEGATIVE) 12/18/18 17:35 Urine Glucose Negative mg/dL (NEGATIVE) 12/18/18 17:35 Stool Occult Blood Negative (NEGATIVE) 12/18/18 17:35 Assessment/Plan - Assessment/Plan (1) Cerebral vascular disease Status: Chronic Current Visit: Yes Assessment: stable (2) Rheumatoid arteritis Status: Chronic Current Visit: Yes Assessment: stable (3) Atrial fibrillation Status: Chronic Current Visit: Yes Qualifiers: Comment: mild tachycardia, will increse metoprolol to 100mg BID, pateint is on diltiazem 240mg (4) Elevated LFTs Status: Acute Current Visit: Yes Assessment: possible due to CHF (5) Pneumonia Status: Acute Current Visit: Yes Qualifiers: Pneumonia type: due to unspecified organism Laterality: bilateral Assessment: improved (6) Essential hypertension Status: Chronic Current Visit: No Assessment: stablr (7) COPD (chronic obstructive pulmonary disease) Status: Chronic Current Visit: No Qualifiers: COPD type: COPD with acute exacerbation Qualified Code(s): J44.1 - Chronic obstructive pulmonary disease with (acute) exacerbation Assessment: stable (8) Anemia Status: Acute Current Visit: Yes Qualifiers: Anemia type: unspecified type Qualified Code(s): D64.9 - Anemia, unspecified Assessment: hgb and hect stable, will recheck at 1600 today and in AM (9) CHF (congestive heart failure) Status: Chronic Current Visit: Yes Qualifiers: Heart failure chronicity: acute on chronic Assessment: BNP elevated a little more today, will continue lasix
[2018-12-20] MEDS ORDERED: LORATADINE 10 MG TABLET PO ONE (08:11)
[2018-12-20] MEDS ORDERED: ATORVASTATIN CALCIUM 20 MG TABLET PO ONE (08:15)
[2018-12-20] MEDS ORDERED: cefTRIAXone SODIUM 1 GM INJ ONE (08:16)
[2018-12-20] MEDS ORDERED: 0.9 % SODIUM CHLORIDE 50 ML IV ONE (08:16)
[2018-12-20] MEDS: FLUTICASONE PROPIONATE 120 SPRAY/16 GR BOTTLE IEN SCH ×2 (08:30→19:46)
[2018-12-20] MEDS: ASPIRIN 81 MG CHEW TAB PO SCH ×2 (10:01→10:26)
[2018-12-20] MEDS: BUDESONIDE 0.5MG/2ML AMPUL.NEB NEB SCH ×2 (10:20→20:35)
[2018-12-20] MEDS: CITALOPRAM HYDROBROMIDE 20 MG TABLET PO SCH ×2 (10:26→19:46)
[2018-12-20] MEDS: FUROSEMIDE 40 MG/4 ML VIAL IVP SCH (10:27)
[2018-12-20] MEDS: CHOLECALCIFEROL (VIT-D3) 1,000 UNIT TABLET PO SCH ×2 (10:28→19:46)
[2018-12-20] MEDS: cefTRIAXone SODIUM 1 GM in 0.9 % SODIUM CHLORIDE 50 ML IV SCH (10:28)
[2018-12-20] MEDS: METOPROLOL TARTRATE 50 MG TABLET PO SCH ×2 (10:29→20:40)
[2018-12-20] MEDS: ATORVASTATIN CALCIUM 20 MG TABLET PO SCH (10:29)
[2018-12-20] MEDS ORDERED: LEVALBUTEROL NEB 1.25 MG/3 ML VIAL.NEB NEB PRN (20:04)
--- NOTE | 2018-12-20 20:37 | Diagnostic Imaging Report ---
[facility] [address] [facility] [address] [place], [place]. [address] Report Submission Date: Dec 20, 2018 3:09:45 PM CDT Patient Study Name: JESSICA LINN Date: Dec 20, 2018 2:33:53 PM CDT Modality Type: CT\SR Gender: F Description: CT BRAIN W/O CONTRAST : 49 Institution: [facility] Physician: [facility] Exam: CT brain without contrast. History: Right lower extremity weakness. Axial images through the brain are submitted along with sagittal and coronal reformatted images. The examination is compared to study dated June 05, 2018. The brainstem and cerebellum are of normal attenuation. In the supratentorial regions, no acute hemorrhage or mass effect is identified. The lateral ventricles and surrounding sulci are prominent. Areas of encephalomalacia in the left frontal lobe and occipital parietal lobes bilaterally have not changed in the interval. No extra-axial fluid collections are identified. No new bony abnormalities are identified. 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 Atrophy. No acute hemorrhage or mass effect. Electronically signed on Dec 20, 2018 3:09:45 PM CDT by: Hitesh TUCKER
[2018-12-20] MEDS: APIXABAN 5 MG TABLET PO SCH (23:43)
[2018-12-21] MEDS: PANTOPRAZOLE SODIUM 40 MG TABLET.DR PO SCH (05:57)
[2018-12-21 06:02] LABS: BASOPHILS % 0.4 % (0.0-1.5); NEUTROPHILS # 5.5 # k/uL (1.4-7.7)
[2018-12-21 06:19] LABS: eGFR (Non-African) > 60
[2018-12-21] MEDS: traMADol HCL 50 MG TABLET PO PRN ×2 (07:50→20:08)
--- NOTE | 2018-12-21 09:25 | Diagnostic Imaging Report ---
RAOUL YOUNG [facility] [address] [facility] [address] [address] Report Submission Date: Dec 21, 2018 9:09:57 AM CDT Patient Study Name: JESSICA LINN Date: Dec 21, 2018 7:37:12 AM CDT Modality Type: DX Gender: F Description: CHEST 2VIEW : 49 Institution: [facility] Physician: RAOUL YOUNG Chest, PA and lateral History: Shortness of breath Findings: Sternal wires indicate prior cardiac surgery. Spinal stimulator is present. There are moderate bilateral pleural effusions. There is no pneumothorax. There is moderate pulmonary vascular congestion. There is calcification in the thoracic aorta. Postoperative changes are noted at the thoracolumbar junction. Since June 03, 2018, effusions and congestion have increased significantly. Impression: Pulmonary vascular congestion. Bilateral pleural effusions. Atherosclerosis. Electronically signed on Dec 21, 2018 9:09:57 AM CDT by: Bonilla TUCKER
[2018-12-21] MEDS: ASPIRIN 81 MG CHEW TAB PO SCH (09:42)
[2018-12-21] MEDS: APIXABAN 5 MG TABLET PO SCH ×2 (09:42→20:07)
[2018-12-21] MEDS: METOPROLOL TARTRATE 50 MG TABLET PO SCH ×2 (09:43→20:08)
[2018-12-21] MEDS: CHOLECALCIFEROL (VIT-D3) 1,000 UNIT TABLET PO SCH (09:43)
[2018-12-21] MEDS: CITALOPRAM HYDROBROMIDE 20 MG TABLET PO SCH (09:44)
[2018-12-21] MEDS: FUROSEMIDE 40 MG/4 ML VIAL IVP SCH (09:45)
[2018-12-21] MEDS: FLUTICASONE PROPIONATE 120 SPRAY/16 GR BOTTLE IEN SCH (09:49)
[2018-12-21] MEDS: cefTRIAXone SODIUM 1 GM in 0.9 % SODIUM CHLORIDE 50 ML IV SCH (09:50)
[2018-12-21] MEDS: ATORVASTATIN CALCIUM 20 MG TABLET PO SCH (09:56)
[2018-12-21] MEDS: BUDESONIDE 0.5MG/2ML AMPUL.NEB NEB SCH ×2 (10:02→22:37)
[2018-12-21] MEDS: AZITHROMYCIN 500 MG in 0.9 % SODIUM CHLORIDE 250 ML IV SCH (17:14)
--- NOTE | 2018-12-21 20:58 | Inpatient Progress Note ---
Subjective - Required Recertification Statement I anticipate X number of days because-include discharge plan: 1 day - Review of Systems Events since last encounter: Patient states that she continues to improve and feels better then yesterday. Breathing seem to be some better. Still has some orthopnea symptoms. Cough is almost gone, no fever or chills. Cardiovascular: Denies: Chest Pain Gastrointestinal: Denies: Nausea Objective - Exam Vitals and I&O: Vital Signs Temp 97.9 F 12/21/18 17:29 Pulse 116 H 12/21/18 17:29 Resp 18 12/21/18 17:29 BP 138/47 12/21/18 17:29 Pulse Ox 92 12/21/18 17:29 Intake & Output 12/20/18 12/21/18 12/21/18 23:59 11:59 23:59 Intake Total 1150 333 843 Output Total 650 100 Balance 500 233 843 Weight 60.781 kg Intake: IV 250 3 3 Left wrist 250 3 3 Oral 900 330 840 Output: Urine 650 100 Other: Voiding Method Incontinent Bedside Commode # Voids 2 3 General: Alert, Oriented to Person, Cooperative, No acute distress Neck: Supple Lungs: Normal air movement, Rales (L). No: Wheezes Cardiovascular: No murmurs, Irregularly Irregular, Tachycardia (112) Abdomen: Normal bowel sounds, Soft, No tenderness - Results Results: Laboratory Results WBC 7.30 K/ul (4.00-12.00) 12/21/18 05:40 RBC 3.41 M/ul (3.90-5.20) L 12/21/18 05:40 Hgb 9.4 g/dL (11.5-16.0) L 12/21/18 05:40 Hct 29.3 % (34.5-46.5) L 12/21/18 05:40 MCV 86.0 fl (80.0-100.0) 12/21/18 05:40 MCH 27.4 pg (28.0-34.0) L 12/21/18 05:40 MCHC 31.9 g/dL (30.0-36.0) 12/21/18 05:40 RDW 15.2 % (11.3-14.3) H 12/21/18 05:40 Plt Count 127 K/mm3 (130-400) L 12/21/18 05:40 Neut % (Auto) 74.7 % (39.0-79.0) 12/21/18 05:40 Lymph % (Auto) 12.6 % (16.0-50.0) L 12/21/18 05:40 [place] % (Auto) 9.6 % (0.0-11.0) 12/21/18 05:40 Eos % (Auto) 2.7 % (0.0-6.8) 12/21/18 05:40 Baso % (Auto) 0.4 % (0.0-1.5) 12/21/18 05:40 Neut # (Auto) 5.5 # k/uL (1.4-7.7) 12/21/18 05:40 Lymph # (Auto) 0.9 # k/uL (0.6-4.0) 12/21/18 05:40 [place] # (Auto) 0.7 # k/uL (0.0-0.9) 12/21/18 05:40 Eos # (Auto) 0.2 # k/uL (0.0-0.6) 12/21/18 05:40 Baso # (Auto) 0.0 # k/uL (0.0-0.5) 12/21/18 05:40 Sodium 136 mmol/L (137-145) L 12/21/18 05:40 Potassium 3.6 mmol/L (3.5-5.1) 12/21/18 05:40 Chloride 102 mmol/L (98-107) 12/21/18 05:40 Carbon Dioxide 26 mmol/L (22-30) 12/21/18 05:40 Anion Gap 11.6 mmol/L (3-11) H 12/21/18 05:40 BUN 21 mg/dL (7-17) H 12/21/18 05:40 Creatinine 1.02 mg/dL (0.52-1.04) 12/21/18 05:40 Estimated Creat Clear 57 12/21/18 05:40 Est GFR ( Amer) > 60 (60-) 12/21/18 05:40 Est GFR (Non-Af Amer) > 60 (60-) 12/21/18 05:40 Glucose 160 mg/dL (74-106) H 12/21/18 05:40 Calcium 8.1 mg/dL (8.4-10.2) L 12/21/18 05:40 Ferritin Scanned report 12/18/18 13:30 Total Bilirubin 0.7 mg/dL (0.2-1.3) 12/21/18 05:40 AST 103 U/L (15-46) H 12/21/18 05:40 ALT 214 U/L (13-69) H 12/21/18 05:40 Alkaline Phosphatase 155 U/L (38-126) H 12/21/18 05:40 Creatine Kinase 79 U/L (30-135) 12/18/18 13:30 CK-MB (CK-2) 2.3 ng/mL (0.0-5.6) 12/18/18 13:32 Troponin I 0.020 ng/mL (0.012-0.034) 12/18/18 13:32 NT-Pro-B Natriuret Pep 93184.0 pg/mL (11.1-125.0) H 12/20/18 05:50 Total Protein 6.0 g/dL (6.3-8.2) L 12/21/18 05:40 Albumin 3.3 g/dL (3.5-5.0) L 12/21/18 05:40 Lipase 109 U/L (23-300) 12/18/18 13:30 Urine Color Yellow (YELLOW) 12/18/18 17:35 Urine Appearance Clear (CLEAR) 12/18/18 17:35 Urine pH 6.0 (5.0 - 8.0) 12/18/18 17:35 Ur Specific [place] 1.015 (1.010-1.030) 12/18/18 17:35 Urine Protein Negative mg/dL (NEGATIVE) 12/18/18 17:35 Urine Ketones Negative mg/dL (NEGATIVE) 12/18/18 17:35 Urine Occult Blood Trace-intact (NEGATIVE) H 12/18/18 17:35 Urine Nitrite Negative (NEGATIVE) 12/18/18 17:35 Urine Bilirubin Negative (NEGATIVE) 12/18/18 17:35 Urine Urobilinogen 0.2 Eu (0.2-1.0) 12/18/18 17:35 Ur Leukocyte Esterase Negative (NEGATIVE) 12/18/18 17:35 Urine Glucose Negative mg/dL (NEGATIVE) 12/18/18 17:35 Stool Occult Blood Negative (NEGATIVE) 12/18/18 17:35 Assessment/Plan - Assessment/Plan (1) CHF (congestive heart failure) Status: Chronic Current Visit: Yes Qualifiers: Heart failure chronicity: acute on chronic (2) Cerebral vascular disease Status: Chronic Current Visit: Yes Assessment: Chest x-ray look a little worse today, clinically patient appears better. Will continue IV lasix (3) Rheumatoid arteritis Status: Chronic Current Visit: Yes (4) Atrial fibrillation Status: Chronic Current Visit: Yes Qualifiers: Assessment: Will increase diltiazem to 360mg q day. (5) Elevated LFTs Status: Acute Current Visit: Yes Assessment: stable (6) Pneumonia Status: Acute Current Visit: Yes Qualifiers: Pneumonia type: due to unspecified organism Laterality: bilateral Assessment: improved (7) Essential hypertension Status: Chronic Current Visit: No Assessment: stable (8) COPD (chronic obstructive pulmonary disease) Status: Chronic Current Visit: No Qualifiers: COPD type: COPD with acute exacerbation Qualified Code(s): J44.1 - Chronic obstructive pulmonary disease with (acute) exacerbation Narrative Support Text: stable (9) Anemia Status: Acute Current Visit: Yes Qualifiers: Anemia type: unspecified type Qualified Code(s): D64.9 - Anemia, unspecified Assessment: stable Hmg 9.4
[2018-12-22] MEDS: PANTOPRAZOLE SODIUM 40 MG TABLET.DR PO SCH (06:10)
[2018-12-22] MEDS: CITALOPRAM HYDROBROMIDE 20 MG TABLET PO SCH (07:59)
[2018-12-22] MEDS: METOPROLOL TARTRATE 50 MG TABLET PO SCH ×2 (07:59→19:59)
[2018-12-22] MEDS: ATORVASTATIN CALCIUM 20 MG TABLET PO SCH (07:59)
[2018-12-22] MEDS: ASPIRIN 81 MG CHEW TAB PO SCH (08:00)
[2018-12-22] MEDS: FLUTICASONE PROPIONATE 120 SPRAY/16 GR BOTTLE IEN SCH (08:00)
[2018-12-22] MEDS: APIXABAN 5 MG TABLET PO SCH ×2 (08:00→19:59)
[2018-12-22] MEDS: BUDESONIDE 0.5MG/2ML AMPUL.NEB NEB SCH ×2 (08:01→20:03)
[2018-12-22] MEDS: FUROSEMIDE 40 MG/4 ML VIAL IVP SCH ×2 (08:01→13:37)
[2018-12-22] MEDS: cefTRIAXone SODIUM 1 GM in 0.9 % SODIUM CHLORIDE 50 ML IV SCH (08:12)
[2018-12-22] MEDS: CHOLECALCIFEROL (VIT-D3) 1,000 UNIT TABLET PO SCH (08:13)
[2018-12-22] MEDS: traMADol HCL 50 MG TABLET PO PRN ×2 (08:27→19:59)
[2018-12-22] MEDS ORDERED: FUROSEMIDE 40 MG/4 ML VIAL IVP ONE (10:08)
[2018-12-22 10:41] LABS: BASOPHILS % 0.6 % (0.0-1.5); NEUTROPHILS # 6.1 # k/uL (1.4-7.7)
[2018-12-22 10:42] LABS: eGFR (Non-African) > 60
--- NOTE | 2018-12-22 11:08 | Diagnostic Imaging Report ---
GUSTAVO ANDERSON [facility] [id number] [facility] [address] [address] Report Submission Date: Dec 22, 2018 11:04:38 AM CDT Patient Study Name: JESSICA LINN Date: Dec 22, 2018 10:39:07 AM CDT Modality Type: DX Gender: F Description: CHEST 1VIEW : 49 Institution: [facility] Physician: GUSTAVO ANDERSON Portable chest Clinical history: Weakness. Findings: Examination of the chest in single portable AP view with comparison to examination from the previous day demonstrates increasing bilateral effusions with persistent congestion. Cardiovascular and mediastinal silhouettes are stable. Impression: 1. Worsening congestive heart failure with increasing effusions. Electronically signed on Dec 22, 2018 11:04:38 AM CDT by: Jaspreet TUCKER
--- NOTE | 2018-12-22 11:54 | Inpatient Progress Note ---
Subjective - Required Recertification Statement I anticipate X number of days because-include discharge plan: 1 day - Review of Systems Events since last encounter: Patient did wellon 2 liters of oxygen last night. This AM developed some increasing SOB and dyspnea. Required higher supplemental oxygen. Repeat CXR showed increasing pulmonary congestion and pleural effusion. BNP is elevated some higher. Patient was given some IV lasix and is now doing better on 4 liters. Patient has gained about 4 kg during the last 3 days. Patient states that she has been having some mild intermittent chest pain but is at her baseline. Lasts for seconds then goes away. No precipitating factor. RLE weakness is stable. Patient has not had a BM is several days but does not want anything at this time. Last time she took a laxative she had diarrhea for several days. Objective - Exam Vitals and I&O: Vital Signs Temp 97.6 F 12/22/18 10:00 Pulse 106 H 12/22/18 10:00 Resp 20 12/22/18 10:00 BP 147/85 12/22/18 10:00 Pulse Ox 86 L 12/22/18 10:00 Intake & Output 12/21/18 12/21/18 12/22/18 11:59 23:59 11:59 Intake Total 333 1092 819 Output Total 100 850 Balance 233 1092 -31 Weight 60.781 kg 61.235 kg Intake: IV 3 12 239 Left Forearm 236 Left wrist 3 12 3 Oral 330 1080 580 Output: Urine 100 850 Other: Voiding Method Bedside Commode Bedside Commode Bedside Commode # Voids 3 2 General: Alert, Oriented to Person, Cooperative Neck: Supple, No JVD Lungs: Normal air movement, Speaks full Sentences, Rales (in bases bilaterally) Cardiovascular: Irregularly Irregular (tachcardia has resolved. ) Abdomen: Normal bowel sounds, Soft, No tenderness Extremities: No clubbing, No cyanosis, No edema - Results Results: Laboratory Results WBC 8.00 K/ul (4.00-12.00) 12/22/18 09:45 RBC 3.56 M/ul (3.90-5.20) L 12/22/18 09:45 Hgb 10.0 g/dL (11.5-16.0) L 12/22/18 09:45 Hct 30.4 % (34.5-46.5) L 12/22/18 09:45 MCV 85.0 fl (80.0-100.0) 12/22/18 09:45 MCH 28.1 pg (28.0-34.0) 12/22/18 09:45 MCHC 32.9 g/dL (30.0-36.0) 12/22/18 09:45 RDW 15.9 % (11.3-14.3) H 12/22/18 09:45 Plt Count 141 K/mm3 (130-400) 12/22/18 09:45 Neut % (Auto) 75.8 % (39.0-79.0) 12/22/18 09:45 Lymph % (Auto) 10.8 % (16.0-50.0) L 12/22/18 09:45 [place] % (Auto) 8.7 % (0.0-11.0) 12/22/18 09:45 Eos % (Auto) 4.1 % (0.0-6.8) 12/22/18 09:45 Baso % (Auto) 0.6 % (0.0-1.5) 12/22/18 09:45 Neut # (Auto) 6.1 # k/uL (1.4-7.7) 12/22/18 09:45 Lymph # (Auto) 0.9 # k/uL (0.6-4.0) 12/22/18 09:45 [place] # (Auto) 0.7 # k/uL (0.0-0.9) 12/22/18 09:45 Eos # (Auto) 0.3 # k/uL (0.0-0.6) 12/22/18 09:45 Baso # (Auto) 0.1 # k/uL (0.0-0.5) 12/22/18 09:45 Sodium 138 mmol/L (137-145) 12/22/18 10:30 Potassium 3.6 mmol/L (3.5-5.1) 12/22/18 10:30 Chloride 100 mmol/L (98-107) 12/22/18 10:30 Carbon Dioxide 28 mmol/L (22-30) 12/22/18 10:30 Anion Gap 13.6 mmol/L (3-11) H 12/22/18 10:30 BUN 25 mg/dL (7-17) H 12/22/18 10:30 Creatinine 1.01 mg/dL (0.52-1.04) 12/22/18 10:30 Estimated Creat Clear 58 12/22/18 10:30 Est GFR ( Amer) > 60 (60-) 12/22/18 10:30 Est GFR (Non-Af Amer) > 60 (60-) 12/22/18 10:30 Glucose 155 mg/dL (74-106) H 12/22/18 10:30 Calcium 8.5 mg/dL (8.4-10.2) 12/22/18 10:30 Ferritin Scanned report 12/18/18 13:30 Total Bilirubin 0.7 mg/dL (0.2-1.3) 12/21/18 05:40 AST 103 U/L (15-46) H 12/21/18 05:40 ALT 214 U/L (13-69) H 12/21/18 05:40 Alkaline Phosphatase 155 U/L (38-126) H 12/21/18 05:40 Creatine Kinase 79 U/L (30-135) 12/18/18 13:30 CK-MB (CK-2) 2.3 ng/mL (0.0-5.6) 12/18/18 13:32 Troponin I 0.020 ng/mL (0.012-0.034) 12/18/18 13:32 NT-Pro-B Natriuret Pep 12594.0 pg/mL (11.1-125.0) H 12/22/18 09:10 Total Protein 6.0 g/dL (6.3-8.2) L 12/21/18 05:40 Albumin 3.3 g/dL (3.5-5.0) L 12/21/18 05:40 Lipase 109 U/L (23-300) 12/18/18 13:30 Urine Color Yellow (YELLOW) 12/18/18 17:35 Urine Appearance Clear (CLEAR) 12/18/18 17:35 Urine pH 6.0 (5.0 - 8.0) 12/18/18 17:35 Ur Specific [place] 1.015 (1.010-1.030) 12/18/18 17:35 Urine Protein Negative mg/dL (NEGATIVE) 12/18/18 17:35 Urine Ketones Negative mg/dL (NEGATIVE) 12/18/18 17:35 Urine Occult Blood Trace-intact (NEGATIVE) H 12/18/18 17:35 Urine Nitrite Negative (NEGATIVE) 12/18/18 17:35 Urine Bilirubin Negative (NEGATIVE) 12/18/18 17:35 Urine Urobilinogen 0.2 Eu (0.2-1.0) 12/18/18 17:35 Ur Leukocyte Esterase Negative (NEGATIVE) 12/18/18 17:35 Urine Glucose Negative mg/dL (NEGATIVE) 12/18/18 17:35 Stool Occult Blood Negative (NEGATIVE) 12/18/18 17:35 Assessment/Plan - Assessment/Plan (1) CHF (congestive heart failure) Status: Chronic Current Visit: Yes Qualifiers: Heart failure chronicity: acute on chronic Assessment: Patient will have Lasix increased to 40mg BID. Will get EKG and troponin. Repeat labs in AM. (2) Cerebral vascular disease Status: Chronic Current Visit: Yes Assessment: stable, no new TIA or CVA symptoms (3) Rheumatoid arteritis Status: Chronic Current Visit: Yes Assessment: stable (4) Atrial fibrillation Status: Chronic Current Visit: Yes Qualifiers: Assessment: improved, tachycardia from yesterday resolved (5) Pneumonia Status: Acute Current Visit: Yes Qualifiers: Pneumonia type: due to unspecified organism Laterality: bilateral Assessment: stable (6) Essential hypertension Status: Chronic Current Visit: No Assessment: stable (7) COPD (chronic obstructive pulmonary disease) Status: Chronic Current Visit: No Qualifiers: COPD type: COPD with acute exacerbation Qualified Code(s): J44.1 - Chronic obstructive pulmonary disease with (acute) exacerbation Assessment: stable (8) Anemia Status: Acute Current Visit: Yes Qualifiers: Anemia type: unspecified type Qualified Code(s): D64.9 - Anemia, unspecified Assessment: stable
[2018-12-22] MEDS: AZITHROMYCIN 500 MG in 0.9 % SODIUM CHLORIDE 250 ML IV SCH (17:49)
[2018-12-23] MEDS: FUROSEMIDE 40 MG/4 ML VIAL IVP SCH ×3 (06:01→15:16)
[2018-12-23] MEDS: PANTOPRAZOLE SODIUM 40 MG TABLET.DR PO SCH (06:35)
[2018-12-23 07:08] LABS: eGFR (Non-African) 43
[2018-12-23] MEDS: cefTRIAXone SODIUM 1 GM in 0.9 % SODIUM CHLORIDE 50 ML IV SCH (08:37)
[2018-12-23] MEDS: CITALOPRAM HYDROBROMIDE 20 MG TABLET PO SCH (08:37)
[2018-12-23] MEDS: ATORVASTATIN CALCIUM 20 MG TABLET PO SCH (08:38)
[2018-12-23] MEDS: CHOLECALCIFEROL (VIT-D3) 1,000 UNIT TABLET PO SCH (08:38)
[2018-12-23] MEDS: METOPROLOL TARTRATE 50 MG TABLET PO SCH (08:39)
[2018-12-23] MEDS: ASPIRIN 81 MG CHEW TAB PO SCH (08:39)
[2018-12-23] MEDS: APIXABAN 5 MG TABLET PO SCH (08:39)
[2018-12-23] MEDS: BUDESONIDE 0.5MG/2ML AMPUL.NEB NEB SCH (08:40)
[2018-12-23] MEDS: FLUTICASONE PROPIONATE 120 SPRAY/16 GR BOTTLE IEN SCH (08:41)
--- NOTE | 2018-12-23 12:29 | Discharge Summary ---
Discharge Summary - Discharge [facility] Admission Date: 12/18/18 (Acute) Discharge Date: 12/23/18 (Snf) Discharge To: Snf ([facility]) History of Present Illness: Patient is a 73-year-old white female with a history of chronic atrial fibrillation on anticoagulation therapy, congestive heart failure, hypertension, COPD, rheumatoid and osteoarthritis. Patient is currently residing at [facility]. Over the last 2 to 3 days prior to admission patient become more weak and lethargic. Patient is not eating and drinking well. Patient appeared to be pale. Patient did developed a cough that did sound productive. Patient started having some problems with maintaining and SaO2 greater than 92%. Patient was subsequently brought to the ED for evaluation. Patient was found to have some perihilar infiltrates bilaterally. Patient also had a left Bas[place] infiltrate with small pleural effusion. Patient was noted to be anemic with the hemoglobin of 8.0. Patient was subsequently admitted to the hospital for further care and evaluation. Condition at Discharge: Guarded Home Medications: Ambulatory Orders Medication Instructions Recorded Albuterol Sulfate [Proventil Hfa] 2 puff PO PRN PRN 05/28/18 Sennosides/Docusate Sodium 1 each D 05/28/18 [Docusate Sodium-Senna Tablet] Cholecalciferol [Vitamin D-3] 1 each PO DAILY #0 06/13/18 Fluticasone Propionate [Flonase] 1 each NS DAILY #0 06/13/18 traMADol HCL [Ultram] 50 mg PO Q6H PRN tablet 06/13/18 Apixaban [Eliquis] 5 mg PO BID 07/23/18 Diltiazem HCl [Diltiazem 24Hr Cd] 240 mg PO DAILY 07/23/18 Acetaminophen [Pain Relief] 2 tab PO Q6 PRN 12/18/18 Aspirin [Tashia] 1 tab PO DAILY 12/18/18 Atorvastatin Calcium [Lipitor] 40 mg PO DAILY 12/18/18 Baclofen 0.5 tab PO Q6 12/18/18 Citalopram Hydrobromide [Celexa] 1 tab PO DAILY 12/18/18 Cefdinir [Omnicef] 300 mg PO BID #10 capsule 12/23/18 Furosemide [Lasix] 40 mg PO BID #0 12/23/18 Metoprolol Tartrate 100 mg PO BID #60 tablet 12/23/18 Consultations this Visit: None Procedures this Visit: None Allergies/Adverse Reactions: Allergies Allergy/AdvReac Type Severity Reaction Status Date / Time adhesive tape AdvReac Mild Itchy Skin Verified 12/18/18 13:43 Patient Problems: Current Active Problems Problem Status Onset Anemia Acute Elevated LFTs Acute Hyperglycemia Acute Pneumonia Acute Thoracic aortic aneurysm Acute Atrial fibrillation Chronic CHF (congestive heart failure) Chronic Cerebral vascular disease Chronic Rheumatoid arteritis Chronic Discharge Summary: Patient was admitted to the hospital to acute care. Patient was started on IV antibiotic therapy of azithromycin and ceftriaxone. Blood cultures were drawn and at this time are no growth. Patient WBC count did remain stable. Patient initially was febrile but within 36 hours became it afebrile and remain so throughout the remainder of hospitalization. Patient was noted to have atrial fibrillation. Patient did developed some tachycardia with her heart rate been consistently 110-130. Patient metoprolol was increased from 75 mg BID to 100 mg BID. patient diltiazem was increased from 240 mg to 360 mg. at the time of dismissal patient pulse rate was in the 70s is still in an atrial fibrillation pattern. initially eloquence with discontinued due to patient anemia. However this was restarted and patient maintained on it at this time. Patient was noted to be anemic and hemoglobin did drop down to 6.6. Patient was subsequently transfused two units of blood. At the time of dismissal hemoglobin was 10.0. patient was also found to have an exacerbation of congestive heart failure during her hospital stay. Patient BNP increased to 18,000. Chest x-ray showed increasing pulmonary congestion and pleural effusion. Patient had to be maintained on oxygen therapy. At the time of dismissal patient is on 2 L of oxygen. EKG was done and did not show any acute ischemic changes. Troponin was within normal range. During hospitalization was felt that the patient was having some increase difficulties with moving her right lower extremity. Patient has had a previous CVA with some right lower extremity weakness. Repeat CT scan did not show any acute ischemic changes. Patient chronic kidney disease remains stable. At the time of dismissal creatinine was 1.29 and BUN was 45. Patient did have some hypoglycemia with blood sugars running in the 130-150 range fasting. Patient other chronic medical problems remain stable. At the time of dismissal was felt that the patient could be followed up on an outpatient basis at the [facility] and patient was discharged in stable condition. - Final Diagnosis (1) CHF (congestive heart failure) Problems: Improved, will continue with increase lasix at 40mg BID (2) Cerebral vascular disease Problems: stable (3) Rheumatoid arteritis Problems: stable (4) Atrial fibrillation Problems: improved with metoprolol increased to 100mg BID (5) Pneumonia Problems: improved, will finish antibiotic therapy (6) Essential hypertension Problems: stable on home medication (7) COPD (chronic obstructive pulmonary disease) Problems: stable (8) Anemia Problems: transfused 2 untis of PRBC (9) Thoracic aortic aneurysm Problems: stable
[2018-12-23 13:14] VITALS: BP 122/48
== END 2018-12-23 14:15 | DRG 291 ==
LOC: ED 13:09 → SOUTH 17:18
PROVIDERS: ADMIT Family Medicine; ATTEND Family Medicine
PROC: 30233N1 Transfusion of Nonautologous Red Blood Cells into Peripheral Vein, Percutaneous Approach (ICD-10-PCS; principal; 2018-12-22)
DX: I13.0 Hypertensive heart and chronic kidney disease with heart failure and stage 1 through stage 4 chronic kidney disease, or unspecified chronic kidney disease (principal); J18.9 Pneumonia, unspecified organism; J44.0 Chronic obstructive pulmonary disease with (acute) lower respiratory infection; I69.351 Hemiplegia and hemiparesis following cerebral infarction affecting right dominant side; Q87.40 Marfan syndrome, unspecified; J44.1 Chronic obstructive pulmonary disease with (acute) exacerbation; I48.2 Chronic atrial fibrillation; N18.9 Chronic kidney disease, unspecified; I50.9 Heart failure, unspecified; Z66 Do not resuscitate; K21.9 Gastro-esophageal reflux disease without esophagitis; M81.0 Age-related osteoporosis without current pathological fracture; R73.9 Hyperglycemia, unspecified; R79.89 Other specified abnormal findings of blood chemistry; M06.9 Rheumatoid arthritis, unspecified; M19.90 Unspecified osteoarthritis, unspecified site; E78.5 Hyperlipidemia, unspecified; I35.1 Nonrheumatic aortic (valve) insufficiency; F32.9 Major depressive disorder, single episode, unspecified; F17.210 Nicotine dependence, cigarettes, uncomplicated; D63.1 Anemia in chronic kidney disease; F80.2 Mixed receptive-expressive language disorder; Z79.01 Long term (current) use of anticoagulants; Z79.82 Long term (current) use of aspirin; Z79.899 Other long term (current) drug therapy; Z79.51 Long term (current) use of inhaled steroids; Z87.440 Personal history of urinary (tract) infections; Z90.49 Acquired absence of other specified parts of digestive tract; Z90.710 Acquired absence of both cervix and uterus; Z96.698 Presence of other orthopedic joint implants; Z98.1 Arthrodesis status; Z80.49 Family history of malignant neoplasm of other genital organs; Z83.3 Family history of diabetes mellitus; Z88.8 Allergy status to other drugs, medicaments and biological substances; Z87.11 Personal history of peptic ulcer disease; Z91.81 History of falling
CPT/HCPCS: 70450; 71045; 71046; 74177; 76705; 80048; 80053; 81002; 82272; 82550; 82553; 82728; 83540; 83550; 83690; 83880; 84466; 84484; 85014; 85018; 85025; 85045; 86885; 86900; 86920; 87040; 93005; 94640; 94760; 97110; 97161; 97165; 97530; 97535; J0456; J0696; J1940; J2405; J7030; J7050; J7060; J7626; Q0163; Q9967; 99218; 99231; P9040; S1016

== ENCOUNTER 2019-03-27 11:48 | Emergency (ER) | payer MEDICARE, OTHER ==
--- NOTE | 2019-03-27 11:51 | ED Physician Documentation ---
General Adult - HISTORIAN Historian: patient, paramedics - [facility] Stated Complaint: R hip, R shoulder pain Chief Complaint: General Adult Onset: days ago (3) Timing: still present Severity: moderate Further Comments: yes (Pt is a 73 yo female who fell 3 days ago and has had pain in R shoulder and R hip. No shortening or rotation of LE. Pt has hx stroke wit h some residual deficit on L side. Pt uses wheelchair, and was transferring when she fell. Pt is on blood thinner, Eliquis.) - ROS CONST: no problems EYES/ENT: none CVS/RESP: none GI/: none MS/SKIN/LYMPH: other (bruising on R arm (pt on Eliquis)) - PAST HX Past History: other (CHF, COPD, CVA, TIA, HTN) Allergies/Adverse Reactions: Allergies Allergy/AdvReac Type Severity Reaction Status Date / Time adhesive tape AdvReac Mild Itchy Skin Verified 03/27/19 12:04 Home Medications: Ambulatory Orders Medication Instructions Recorded Albuterol Sulfate [Proventil Hfa] 2 puff PO PRN PRN 05/28/18 Sennosides/Docusate Sodium 1 each D 05/28/18 [Docusate Sodium-Senna Tablet] Cholecalciferol [Vitamin D-3] 1 each PO DAILY #0 06/13/18 Fluticasone Propionate [Flonase] 1 each NS DAILY #0 06/13/18 traMADol HCL [Ultram] 50 mg PO Q6H PRN tablet 06/13/18 Apixaban [Eliquis] 5 mg PO BID 07/23/18 Acetaminophen [Pain Relief] 2 tab PO Q6 PRN 12/18/18 Atorvastatin Calcium [Lipitor] 40 mg PO DAILY 12/18/18 Baclofen 0.5 tab PO Q6 12/18/18 Citalopram Hydrobromide [Celexa] 1 tab PO DAILY 12/18/18 Diltiazem HCl [Diltiazem 24Hr ER] 360 mg PO DAILY 12/23/18 Furosemide [Lasix] 40 mg PO BID #0 12/23/18 Potassium Chloride 10 meq PO DAILY #30 tablet.er 12/23/18 Lisinopril [Prinivil] 1 tab PO DAILY 03/27/19 Metoprolol Tartrate 50 mg PO BID 03/27/19 Pantoprazole Sodium [Protonix] 1 tab PO DAILY 03/27/19 - SOCIAL HX Smoking History: non-smoker - FAMILY HX Family History: No - VITAL SIGNS Vital Signs: Vital Signs Temp Pulse Resp BP Pulse Ox 122/48 12/23/18 13:12 - REVIEWED ASSESSMENTS Nursing Assessment Reviewed: Yes Vitals Reviewed: Yes Progress - Progress Progress: x-ray R hip: neg x-ray R shoulder: neg General Adult Physical Exam - PHYSICAL EXAM GENERAL APPEARANCE: mild distress NECK: normal inspection, supple RESPIRATORY: no resp distress, chest non-tender, breath sounds normal CVS: reg rate & rhythm, heart sounds normal ABDOMEN: soft, no organomegaly BACK: normal inspection, no CVA tenderness SKIN: other (healing ecchymosis R arm) EXTREMITIES: other (Tenderness R shoulder & R hip. good range of motion) NEURO: oriented X3, sensation nml, other (slight reduction in strength L vs R (chronic); no shortening or rotation of LE's) Discharge Clincal Impression: recent fall, R hip, R shoulder pain Referrals: Pedro Torrez MD [Primary Care Provider] - Condition: Stable Disposition: 01 HOME, SELF-CARE Decision to Admit: NO Decision Time: 15:30
[2019-03-27 13:51] VITALS: BP 122/48
[2019-03-27 14:38] LABS: APPEARANCE,URINE CLEAR (CLEAR); COLOR,URINE YELLOW (YELLOW); OCCULT BLOOD,URINE NEGATIVE (NEGATIVE)
[2019-03-27 14:39] LABS: UROBILINOGEN URINE 0.2 Eu (0.2-1.0)
--- NOTE | 2019-03-28 14:07 | Diagnostic Imaging Report ---
[facility] [address] [facility] [id number] Patient Name: JESSICA LINN Referring Physician: Vance Narvaez Gender: F Date of Service: 03/27/2019 Exam Requested: RT HIP 2VIEW COMPLETE HISTORY: 73-year-old female with right hip pain after fall 3 days ago. COMPARISON: Radiographs dated 07/23/2018. TECHNIQUE: AP and frog-leg lateral views of the right hip were performed. FINDINGS: No acute fracture is identified about the right hip. No significant degenerative changes of the right hip. The bones are diffusely osteopenic. There is a spinal cord stimulator with implanted electrical device in the right gluteal region. There are postoperative changes of the lumbar spine, not completely imaged here. There are surgical sutures overlying the right lower quadrant. IMPRESSION: 1. No fracture or significant degenerative changes of the right hip. 2. Postoperative and other nonacute findings as detailed above. LIN
--- NOTE | 2019-03-28 14:13 | Diagnostic Imaging Report ---
[facility] [address] [facility] [address] Patient Name: JESSICA LINN Referring Physician: Vance Narvaez Date of : 1945 Gender: F Date of Service: 03/27/2019 Exam Requested: SHOULDER 2 VIEWS OR MORE HISTORY: 73-year-old female with right shoulder pain after fall 3 days ago. COMPARISON: None available. TECHNIQUE: 3 views of the right shoulder were performed. FINDINGS: No acute fracture or dislocation about the right shoulder. There is mild glenohumeral osteoarthritis, with mild joint space narrowing and small inferiorly projecting marginal osteophytes. There is acromioclavicular hypertrophy. No significant loss of subacromial space. Spinal cord stimulator is partially visualized. There are postoperative changes of median sternotomy. IMPRESSION: 1. No fracture of the right shoulder. 2. Acromioclavicular and glenohumeral degenerative changes. LIN
== END 2019-03-27 13:50 | disposition home or self-care (01) ==
LOC: ED 11:48
DX: M25.511 Pain in right shoulder (principal); M25.551 Pain in right hip; Z91.81 History of falling
CPT/HCPCS: 73030; 73502; 81002; 99282; 99283